=== PATIENT | male | born 1935 ===

== ENCOUNTER 2016-07-27 15:43 | Emergency (ER) | payer MEDICARE ==
[2016-07-27 15:43] VITALS: BMI 25.0
[2016-07-27 15:48] VITALS: RESP 20
--- NOTE | 2016-07-27 16:24 | ED PDOC ---
Addendum entered and electronically signed by Patrick Khalil PA 07/27/16 19:36: Addendum Addendum: 07/27/16 19:36 CT HEAD : NO ACUTE BLEED CT C SPINE: NO ACUTE SPINAL INJURY Original Note: HPI: General Adult Time Seen by Provider: 07/27/16 16:00 Chief Complaint (Nursing): Trauma Chief Complaint (Provider): head injury History Per: Patient (81 y/o male h/o ESRD here for evaluation of head injury that occurred en route to dialysis. Patient states he was reversing in wheelchair when chair went over crack in floor and patient fell out of chair striking back of head. NO LOC.) Past Medical History Reviewed: Historical Data, Nursing Documentation, Vital Signs Vital Signs: Last Vital Signs Temp 97.9 F 07/27/16 15:44 Pulse 63 07/27/16 15:44 Resp 20 07/27/16 15:44 BP 175/89 H 07/27/16 15:44 Pulse Ox 100 07/27/16 16:24 - Medical History PMH: Anemia, Atrial Fibrillation, Diabetes, HTN, Hypercholesterolemia, End Stage Renal Disease (mwf), Chronic Kidney Disease Denies: HIV - Family History Family History: States: CAD - Immunization History Hx Tetanus Toxoid Vaccination: No Hx Influenza Vaccination: Yes Hx Pneumococcal Vaccination: Yes - Home Medications Home Medications: Ambulatory Orders Medication Instructions Recorded Amiodarone [Cordarone] 200 mg PO DAILY #0 tab 03/13/16 Gabapentin [Neurontin] 300 mg PO BID #0 cap 03/13/16 diltiaZEM CD [Cardizem CD] 120 mg PO DAILY #0 cap 03/13/16 Vitamin B Complex/Vit C/Folic 1 tab PO DAILY 03/17/16 [Nephro-Sia] Metoprolol Tartrate [Lopressor] 25 mg PO Q12 #0 tab 03/20/16 Calcitriol [Rocaltrol] 0.25 mcg PO MWF #0 sgl 04/10/16 Pioglitazone [Actos] 30 mg PO DAILY #0 tab 04/10/16 SITagliptin [Januvia] 25 mg PO DAILY #0 tab 04/10/16 Atorvastatin [Lipitor] 10 mg PO HS 07/27/16 Calcium Acetate [Phoslo] 667 mg PO TID 07/27/16 Famotidine [Pepcid] 20 mg PO DAILY 07/27/16 - Allergies Allergies/Adverse Reactions: Allergies Allergy/AdvReac Type Severity Reaction Status Date / Time No Known Allergies Allergy Verified 03/20/16 14:04 Review of Systems ROS Statement: Except As Marked, All Systems Reviewed And Found Negative Physical Exam - Reviewed Nursing Documentation Reviewed: Yes Vital Signs Reviewed: Yes - Physical Exam Appears: Positive for: Well, Non-toxic, No Acute Distress Head Exam: Positive for: ATRAUMATIC (Nontender scalp/no injury noted.), NORMAL INSPECTION, NORMOCEPHALIC Skin: Positive for: Normal Color, Warm, DRY Eye Exam: Positive for: EOMI, Normal appearance, PERRL ENT: Positive for: Normal ENT Inspection Neck: Positive for: Normal, Painless ROM Cardiovascular/Chest: Positive for: Regular Rate, Rhythm Respiratory: Positive for: CNT, Normal Breath Sounds Gastrointestinal/Abdominal: Positive for: Normal Exam, Bowel Sounds, Soft Back: Positive for: Normal Inspection Extremity: Positive for: Normal ROM Neurologic/Psych: Positive for: Alert, Oriented - Laboratory Results Result Diagrams: 07/27/16 17:20 07/27/16 17:20 - ECG O2 Sat by Pulse Oximetry: 100 - Progress ED Course And Treament: d/w [facility] [phone]. Next available dialysis time is 3 pm. EKG: NSr 65bpm; no ectopy no acute changes d/w dr. Quispe. Patient comfortable with discharge. Will f/u tomorrow at 3pm. Disposition - Clinical Impression Clinical Impression: Head injury - Patient ED Disposition Is Patient to be Admitted: No - Disposition Disposition: Routine/Home Disposition Time: 19:31 Condition: FAIR Additional Instructions: F/U WITH DIALYSIS TOMORROW AT 3PM. Instructions: Head Injury (ED)
--- NOTE | 2016-07-27 16:44 | CT ---
PROCEDURE: CT HEAD WITHOUT CONTRAST. HISTORY: head injury COMPARISON: None available. TECHNIQUE: Axial computed tomography images were obtained through the head/brain without intravenous contrast. Radiation dose: Total exam DLP = mGy-cm. FINDINGS: HEMORRHAGE: No intracranial hemorrhage. BRAIN: No mass effect or edema. Mild atrophy and chronic periventricular white matter ischemic disease. VENTRICLES: Unremarkable. No hydrocephalus. CALVARIUM: Unremarkable. PARANASAL SINUSES: Unremarkable as visualized. No significant inflammatory changes. MASTOID AIR CELLS: Unremarkable as visualized. No inflammatory changes. OTHER FINDINGS: None. IMPRESSION: Mild atrophy and chronic periventricular white matter ischemic disease. No acute hemorrhage.
--- NOTE | 2016-07-27 17:46 | CT ---
PROCEDURE: CT Cervical Spine without contrast HISTORY: <head injury> COMPARISON: 03/02/2016 TECHNIQUE: Axial computed tomography images were obtained of the cervical spine without the use of intravenous contrast. Coronal and sagittal reformatted images were created and reviewed. Radiation dose: Total exam DLP = mGy-cm. FINDINGS: VERTEBRAE: Status post ACD from C3 through C5 with ventral fixation device and intervertebral spacers in place. DISCS/SPINAL CANAL/NEURAL FORAMINA: No significant central canal or neural foraminal stenosis. Multilevel disc space narrowing and posterior spur formation. Re-demonstration of spinal stenosis at C4-5 and C5-6. PARASPINAL SOFT TISSUES: Unremarkable. OTHER FINDINGS: None. IMPRESSION: No acute fracture. Spinal stenosis at C4-5 and C5-6.
[2016-07-27 17:49] LABS: BASO % 0.9 % (0.0-2.0); EOS # 0.1 K/uL (0.0-0.7); EOS % 1.7 % (0.0-4.0); HEMATOCRIT 30.2 % (35.0-51.0); LYMPH # 0.6 K/uL (1.0-4.3); LYMPH % 13.7 % (20.0-40.0); MEAN CELL VOLUME 93.1 fl (80.0-94.0); MEAN CORPUSCULAR HEMOGLOBIN 30.6 pg (27.0-31.0); MEAN CORPUSCULAR HGB CONC 32.8 g/dL (33.0-37.0); MEAN PLATELET VOLUME 8.9 fl (7.2-11.7); MONO # 0.5 K/uL (0.0-0.8); MONO % 12.9 % (0.0-10.0); NEUT # 2.9 K/uL (1.8-7.0); NEUT % 70.8 % (50.0-75.0); NRBC % 0.1 % (0.0-0.0); RED CELL DISTRIBUTION WIDTH 14.1 % (11.5-14.5); WHITE BLOOD COUNT 4.1 K/uL (4.8-10.8)
[2016-07-27 18:03] LABS: ALB/GLOB RATIO 1.4 (1.0-2.1); BILIRUBIN,TOTAL 0.5 mg/dl (0.2-1.3); CALCIUM 8.5 mg/dL (8.4-10.2); MAGNESIUM 2.4 MG/DL (1.6-2.3); PHOSPHOROUS 3.7 mg/dl (2.5-4.5); POTASSIUM 4.6 MMOL/L (3.6-5.0); TOTAL PROTEIN 6.8 G/DL (6.3-8.2)
[2016-07-27 21:32] VITALS: BP 128/76; PULSE 78; TEMP 97.6; O2SAT 98
--- NOTE | 2016-07-28 13:58 | CARD ---
APPROVED REPORT EKG Measurement Heart [id number] OR [id number] <Conclusion> Sinus rhythm with 1st degree AV block Prolonged QT Abnormal ECG
== END 2016-07-27 21:32 | disposition home or self-care (01) ==
LOC: H.ER 15:43
DX: S09.90XA Unspecified injury of head, initial encounter (principal); N18.6 End stage renal disease; E11.8 Type 2 diabetes mellitus with unspecified complications; N18.9 Chronic kidney disease, unspecified; Z99.2 Dependence on renal dialysis; W05.0XXA Fall from non-moving wheelchair, initial encounter; Y93.9 Activity, unspecified

== ENCOUNTER 2016-11-10 09:30 | Inpatient (IN) | payer MEDICARE ==
[2016-11-10 09:36] VITALS: BP 156/76; PULSE 85; RESP 16; TEMP 97.7; O2SAT 100; BMI 23.9
--- NOTE | 2016-11-10 09:50 | ED PDOC ---
HPI: Back Time Seen by Provider: 11/10/16 09:41 Chief Complaint (Nursing): Back Pain Chief Complaint (Provider): Back pain History Per: Patient History/Exam Limitations: no limitations Onset/Duration Of Symptoms: Days (Months) Current Symptoms Are (Timing): Still Present Quality Of Discomfort: Sharp Additional Complaint(s): Low back pain on moving around. Constant. No numbness, tingles, weakness, incontinence, constipation. No abd pain, chest pain. No new injury. Past Medical History Reviewed: Nursing Documentation, Vital Signs Vital Signs: Last Vital Signs Temp 97.7 F 11/10/16 09:35 Pulse 85 11/10/16 09:35 Resp 16 11/10/16 09:35 BP 156/76 H 11/10/16 09:35 Pulse Ox 100 11/10/16 09:35 - Medical History PMH: Anemia, Atrial Fibrillation, Back Problems, Diabetes, HTN, Hypercholesterolemia, End Stage Renal Disease (mwf), Chronic Kidney Disease Denies: HIV - Surgical History Other surgeries: back surgery Nov - Family History Family History: States: CAD - Living Arrangements Living Arrangements: With Family - Social History Current smoker - smoking cessation education provided: No Alcohol: None Drugs: Denies - Immunization History Hx Tetanus Toxoid Vaccination: No Hx Influenza Vaccination: Yes Hx Pneumococcal Vaccination: Yes - Home Medications Home Medications: Ambulatory Orders Medication Instructions Recorded Amiodarone [Cordarone] 200 mg PO DAILY #0 tab 03/13/16 Gabapentin [Neurontin] 300 mg PO BID #0 cap 03/13/16 diltiaZEM CD [Cardizem CD] 120 mg PO DAILY #0 cap 03/13/16 Vitamin B Complex/Vit C/Folic 1 tab PO DAILY 03/17/16 [Nephro-Sia] Metoprolol Tartrate [Lopressor] 25 mg PO Q12 #0 tab 03/20/16 Calcitriol [Rocaltrol] 0.25 mcg PO MWF #0 sgl 04/10/16 Pioglitazone [Actos] 30 mg PO DAILY #0 tab 04/10/16 SITagliptin [Januvia] 25 mg PO DAILY #0 tab 04/10/16 Atorvastatin [Lipitor] 10 mg PO HS 07/27/16 Calcium Acetate [Phoslo] 667 mg PO TID 07/27/16 Famotidine [Pepcid] 20 mg PO DAILY 07/27/16 - Allergies Allergies/Adverse Reactions: Allergies Allergy/AdvReac Type Severity Reaction Status Date / Time No Known Allergies Allergy Verified 03/20/16 14:04 Review of Systems ROS Statement: Except As Marked, All Systems Reviewed And Found Negative Musculoskeletal: Positive for: Back Pain Physical Exam - Reviewed Nursing Documentation Reviewed: Yes Vital Signs Reviewed: Yes - Physical Exam Appears: Positive for: Non-toxic, No Acute Distress Head Exam: Positive for: ATRAUMATIC, NORMAL INSPECTION, NORMOCEPHALIC Skin: Positive for: Normal Color, Warm, DRY Eye Exam: Positive for: EOMI, Normal appearance, PERRL ENT: Positive for: Normal ENT Inspection Neck: Positive for: Normal, Painless ROM Cardiovascular/Chest: Positive for: Regular Rate, Rhythm Respiratory: Positive for: CNT, Normal Breath Sounds Gastrointestinal/Abdominal: Positive for: Normal Exam, Bowel Sounds, Soft. Negative for: Tenderness Back: Positive for: Other (mild across lower) Extremity: Positive for: Normal ROM, Other (straight leg neg). Negative for: Tenderness, Pedal Edema Neurologic/Psych: Positive for: Alert, Oriented - ECG O2 Sat by Pulse Oximetry: 100 Pulse Ox Interpretation: Normal - Progress ED Course And Treament: 1000: Dr. Webber at bedside. Will admit medsur for further eval. Stable. Disposition - Clinical Impression Clinical Impression: Back pain - Patient ED Disposition Is Patient to be Admitted: Yes Counseled Patient/Family Regarding: Studies Performed, Diagnosis - Disposition Disposition Time: 10:04 Condition: FAIR - POA Present On Arrival: None
[2016-11-10] MEDS ORDERED: Morphine 4 MG/ML VIAL IV ONE (10:01)
[2016-11-10] MEDS ORDERED: Sodium Chloride 0.9% 500 ML IV STA (10:01)
[2016-11-10 10:29] LABS: BASO % 1.1 % (0.0-2.0); EOS # 0.2 K/uL (0.0-0.7); HEMOGLOBIN 10.8 g/dL (12.0-18.0); LYMPH # 0.6 K/uL (1.0-4.3); LYMPH % 14.2 % (20.0-40.0); MEAN CORPUSCULAR HEMOGLOBIN 29.8 pg (27.0-31.0); MEAN CORPUSCULAR HGB CONC 32.8 g/dL (33.0-37.0); MEAN PLATELET VOLUME 7.2 fl (7.2-11.7); MONO # 0.6 K/uL (0.0-0.8); MONO % 15.5 % (0.0-10.0); NEUT # 2.7 K/uL (1.8-7.0); NEUT % 65.2 % (50.0-75.0); NRBC % 0.2 % (0.0-0.0); RBC 3.63 Mil/uL (4.40-5.90); RED CELL DISTRIBUTION WIDTH 15.5 % (11.5-14.5); WHITE BLOOD COUNT 4.1 K/uL (4.8-10.8)
[2016-11-10 10:44] LABS: ALB/GLOB RATIO 1.4 (1.0-2.1); ALBUMIN 4.6 g/dL (3.5-5.0); CALCIUM 9.3 mg/dL (8.4-10.2)
[2016-11-10 10:48] LABS: INR 1.1 (0.9-1.2); PARTIAL THROMBOPLASTIN TIME 32.9 Seconds (25.6-37.1); PROTHROMBIN TIME 12.8 Seconds (9.8-13.1)
--- NOTE | 2016-11-10 13:30 | RAD ---
HISTORY: eval for pain COMPARISON: 03/22/2016 TECHNIQUE: Chest PA and lateral FINDINGS: LUNGS: No active pulmonary disease. PLEURA: No significant pleural effusion identified. No pneumothorax apparent. CARDIOVASCULAR: Normal heart size. Left subclavian/ axillary vascular stent. OSSEOUS STRUCTURES: No significant abnormalities. VISUALIZED UPPER ABDOMEN: Normal. OTHER FINDINGS: None. IMPRESSION: No active disease.
--- NOTE | 2016-11-10 15:07 | CARD ---
APPROVED REPORT EKG Measurement Heart [id number] <Conclusion> Normal sinus rhythm Septal infarct, age undetermined Abnormal ECG
== END 2016-11-10 10:07 | disposition home or self-care (01) | DRG 551 ==
LOC: H.ER 09:30 → H.ERHOLD 09:44
PROVIDERS: ADMIT Family Medicine; ATTEND Family Medicine
DX: M54.5 Low back pain (principal); N18.6 End stage renal disease; I12.0 Hypertensive chronic kidney disease with stage 5 chronic kidney disease or end stage renal disease; E11.22 Type 2 diabetes mellitus with diabetic chronic kidney disease; I48.91 Unspecified atrial fibrillation; D64.9 Anemia, unspecified; E78.00 Pure hypercholesterolemia, unspecified; Z99.2 Dependence on renal dialysis

== ENCOUNTER 2016-11-16 08:31 | Inpatient (IN) | payer MEDICARE ==
[2016-11-16 08:32] VITALS: BMI 23.9
--- NOTE | 2016-11-16 09:22 | ED PDOC ---
HPI: Back Time Seen by Provider: 11/16/16 09:04 Chief Complaint (Nursing): Back Pain Chief Complaint (Provider): low back pain History Per: Patient, Family, Other (prior reports) Onset/Duration Of Symptoms: Gradual Quality Of Discomfort: Sharp Severity: Severe Previous Symptoms: Back Pain, Prior Surgery Associated Symptoms: None Exacerbating Factor(s): Turning, Movement, Sitting Additional Complaint(s): 81yo male c/o worsening severe low back pain, affecting ability to walk. Pain sharp, radiating down both posterior legs. Denies incontinence or urinary retention. Past Medical History Reviewed: Historical Data, Nursing Documentation, Vital Signs Vital Signs: Last Vital Signs Temp 98.2 F 11/16/16 08:41 Pulse 79 11/16/16 08:41 Resp 18 11/16/16 08:41 BP 152/71 H 11/16/16 08:41 Pulse Ox 18 L 11/16/16 08:41 - Medical History PMH: Anemia, Atrial Fibrillation, Back Problems, Diabetes, HTN, Hypercholesterolemia, End Stage Renal Disease (mwf), Chronic Kidney Disease Denies: HIV - Surgical History Other surgeries: neck surgery - Family History Family History: States: CAD - Living Arrangements Living Arrangements: With Family - Social History Current smoker - smoking cessation education provided: No - Immunization History Hx Tetanus Toxoid Vaccination: No Hx Influenza Vaccination: Yes Hx Pneumococcal Vaccination: Yes - Home Medications Home Medications: Ambulatory Orders Medication Instructions Recorded diltiaZEM CD [Cardizem CD] 120 mg PO DAILY #0 cap 03/13/16 Vitamin B Complex/Vit C/Folic 1 tab PO DAILY 03/17/16 [Nephro-Sia] Metoprolol Tartrate [Lopressor] 25 mg PO Q12 #0 tab 03/20/16 Calcitriol [Rocaltrol] 0.25 mcg PO MWF #0 sgl 04/10/16 Calcium Acetate [Phoslo] 667 mg PO TID 07/27/16 Famotidine [Pepcid] 20 mg PO BID 07/27/16 Clopidogrel [Plavix] 75 mg PO DAILY 11/10/16 Dexlansoprazole [Dexilant] 30 mg PO DAILY 11/10/16 Diclofenac Sodium [Pennsaid] 1 appl TOP TID PRN 11/10/16 Lidocaine 5% [Lidoderm] 1 patch TD DAILY PRN 11/10/16 Linaclotide [Linzess] 145 mcg PO DAILY PRN 11/10/16 Linagliptin [Tradjenta] 5 mg PO DAILY 11/10/16 Rosuvastatin Calcium [Crestor] 5 mg PO Q48H 11/10/16 Tamsulosin [Flomax] 0.4 mg PO HS 11/10/16 - Allergies Allergies/Adverse Reactions: Allergies Allergy/AdvReac Type Severity Reaction Status Date / Time No Known Allergies Allergy Verified 11/16/16 08:46 Review of Systems ROS Statement: Except As Marked, All Systems Reviewed And Found Negative Constitutional: Negative for: Fever, Chills Cardiovascular: Negative for: Chest Pain, Palpitations Respiratory: Negative for: Cough, Shortness of Breath Musculoskeletal: Positive for: Back Pain, Leg Pain. Negative for: Neck Pain, Shoulder Pain, Hand Pain Skin: Negative for: Rash Neurological: Positive for: Other (parasthesias). Negative for: Weakness, Numbness Physical Exam - Reviewed Nursing Documentation Reviewed: Yes Vital Signs Reviewed: Yes - Physical Exam Appears: Positive for: Well, Non-toxic, No Acute Distress Head Exam: Positive for: ATRAUMATIC, NORMAL INSPECTION, NORMOCEPHALIC Skin: Positive for: Normal Color, Warm, DRY Eye Exam: Positive for: EOMI, Normal appearance, PERRL ENT: Positive for: Normal ENT Inspection Neck: Positive for: Normal, Painless ROM Cardiovascular/Chest: Positive for: Regular Rate, Rhythm Respiratory: Positive for: CNT, Normal Breath Sounds Gastrointestinal/Abdominal: Positive for: Bowel Sounds, Soft. Negative for: Tenderness Back: Positive for: Vertebral Tenderness, Decreased ROM, Muscle Spasm Extremity: Positive for: Normal ROM Neurologic/Psych: Positive for: Alert, Oriented. Negative for: Motor/Sensory Deficits - Laboratory Results Result Diagrams: 11/16/16 09:25 11/16/16 09:25 - ECG ECG: Positive for: Interpreted By Me ECG Rhythm: Positive for: Sinus Rhythm, Nonspecific Changes Interpretation Of ECG: prior septal infarct Rate: 69 O2 Sat by Pulse Oximetry: 98 Pulse Ox Interpretation: Normal - Radiology X-Ray: Interpreted by Me X-Ray Interpretation: No Acute Disease Medical Decision Making Medical Decision Making: labs reviewed, c/w chronic kidney disease on HD. Potassium normal. Due for HD today. States he saw Dr Mcnamara cardiology on wednesday. d/w Dr Webber- admit med surg for neurosurgery eval of spine given failure outpatient. Disposition - Clinical Impression Clinical Impression: Intractable back pain - Patient ED Disposition Is Patient to be Admitted: Yes Counseled Patient/Family Regarding: Studies Performed, Diagnosis - Disposition Disposition Time: 09:10 Condition: STABLE - Pt Status Changed To: Hospital Disposition Of: Inpatient - Admit Certification Admit to Inpatient:: After my assessment, the patient will require hospitalization for at least two midnights. This is because of the severity of symptoms shown, intensity of services needed, and/or the medical risk in this patient being treated as an outpatient. - POA Present On Arrival: None
[2016-11-16 09:29] LABS: BASO % 0.3 % (0.0-2.0); EOS # 0.2 K/uL (0.0-0.7); EOS % 4.8 % (0.0-4.0); HEMOGLOBIN 10.2 g/dL (12.0-18.0); LYMPH # 0.8 K/uL (1.0-4.3); LYMPH % 19.3 % (20.0-40.0); MEAN CELL VOLUME 91.3 fl (80.0-94.0); MEAN CORPUSCULAR HEMOGLOBIN 30.4 pg (27.0-31.0); MEAN CORPUSCULAR HGB CONC 33.3 g/dL (33.0-37.0); MONO # 0.6 K/uL (0.0-0.8); MONO % 16.6 % (0.0-10.0); NEUT # 2.3 K/uL (1.8-7.0); NRBC % 0.3 % (0.0-0.0); RBC 3.35 Mil/uL (4.40-5.90); RED CELL DISTRIBUTION WIDTH 15.5 % (11.5-14.5); WHITE BLOOD COUNT 3.9 K/uL (4.8-10.8)
[2016-11-16 09:44] LABS: ALB/GLOB RATIO 1.4 (1.0-2.1); ALBUMIN 4.3 g/dL (3.5-5.0); CALCIUM 9.2 mg/dL (8.4-10.2)
[2016-11-16 10:00] LABS: INR 1.1 (0.9-1.2); PARTIAL THROMBOPLASTIN TIME 30.9 Seconds (25.6-37.1); PROTHROMBIN TIME 12.4 Seconds (9.8-13.1)
--- NOTE | 2016-11-16 10:32 | RAD ---
HISTORY: back pain COMPARISON: Comparison chest dated 11/10/2016 TECHNIQUE: Chest PA and lateral FINDINGS: LUNGS: Suspect minor left basilar atelectasis or scarring PLEURA: No significant pleural effusion identified. No pneumothorax apparent. CARDIOVASCULAR: Heart size is upper limits of normal. OSSEOUS STRUCTURES: Minor multilevel degenerative spondylosis of the thoracic spine. Inferior aspect of a ACDF plate seen overlying the lower cervical spine VISUALIZED UPPER ABDOMEN: Normal. OTHER FINDINGS: None. IMPRESSION: Suspect minor left basilar atelectasis or scarring
--- NOTE | 2016-11-16 10:42 | CP.PCM.HP ---
History of Present Illness - History of Present Illness History of Present Illness: This is a 81 y/o male admitted for intractable lower back pain. Noted to have multilevel lumbar disc disease, Conservative measures were started including pain medications and physical therapy. Symptoms worsened and affected patient gait and balance. pain was so intractable hence sought consult at ER. Has hx of DM 2 HTn CKD 5 on HD, recent cervical laminectomy Present on Admission - Present on Admission Any Indicators Present on Admission: No History of DVT/PE: No History of Uncontrolled Diabetes: Yes Urinary Catheter: No Decubitus Ulcer Present: No Review of Systems - EENT Eyes: Blurred Vision Past Patient History - Infectious Disease Hx of Infectious Diseases: None - Past Medical History & Family History Past Medical History?: Yes - Past Social History Smoking Status: Former Smoker - CARDIAC Hx Atrial Fibrillation: Yes Hx Hypercholesterolemia: Yes Hx Hypertension: Yes - PULMONARY Hx Respiratory Disorders: No - NEUROLOGICAL Hx Neurological Disorder: No Other/Comment: neuropathy - HEENT Hx HEENT Problems: No - RENAL Hx Chronic Kidney Disease: Yes - ENDOCRINE/METABOLIC Hx Endocrine Disorders: Yes - HEMATOLOGICAL/ONCOLOGICAL Hx Anemia: Yes Hx Human Immunodeficiency Virus (HIV): No - INTEGUMENTARY Hx Dermatological Problems: No - MUSCULOSKELETAL/RHEUMATOLOGICAL Hx Musculoskeletal Disorders: Yes - GASTROINTESTINAL Hx Gastrointestinal Disorders: Yes - GENITOURINARY/GYNECOLOGICAL Hx Genitourinary Disorders: No - PSYCHIATRIC Hx Psychophysiologic Disorder: No Hx Substance Use: No - SURGICAL HISTORY Hx Surgeries: Yes Hx Vascular Access Device: Yes - ANESTHESIA Hx Anesthesia: Yes Hx Anesthesia Reactions: No Hx Malignant Hyperthermia: No Meds Allergies/Adverse Reactions: Allergies Allergy/AdvReac Type Severity Reaction Status Date / Time No Known Allergies Allergy Verified 11/16/16 08:46 Physical Exam - Head Exam Head Exam: NORMAL INSPECTION - Eye Exam Eye Exam: Normal appearance - ENT Exam ENT Exam: Mucous Membranes Moist - Respiratory Exam Respiratory Exam: Clear to Auscultation Bilateral - Cardiovascular Exam Cardiovascular Exam: REGULAR RHYTHM - GI/Abdominal Exam GI & Abdominal Exam: Normal Bowel Sounds - Exam Exam: NORMAL INSPECTION - Neurological Exam Neurological exam: CN II-XII Intact, Oriented x3 - Psychiatric Exam Psychiatric exam: Normal Mood Results - Vital Signs Recent Vital Signs: Last Vital Signs Temp 98.2 F 11/16/16 08:41 Pulse 69 11/16/16 10:16 Resp 18 11/16/16 08:41 BP 152/71 H 11/16/16 08:41 Pulse Ox 98 11/16/16 10:16 - Labs Result Diagrams: 11/16/16 09:25 11/16/16 09:25 Labs: Laboratory Results - last 24 hr 11/16/16 11/16/16 11/16/16 09:25 09:25 09:25 WBC 3.9 L RBC 3.35 L Hgb 10.2 L Hct 30.6 L MCV 91.3 MCH 30.4 MCHC 33.3 RDW 15.5 H Plt Count 177 MPV 7.0 L Neut % (Auto) 59.0 Lymph % (Auto) 19.3 L [place] % (Auto) 16.6 H Eos % (Auto) 4.8 H Baso % (Auto) 0.3 Neut # 2.3 Lymph # 0.8 L [place] # 0.6 Eos # 0.2 Baso # 0.0 PT 12.4 INR 1.1 APTT 30.9 Sodium 139 Potassium 4.7 Chloride 101 Carbon Dioxide 22 Anion Gap 21 H BUN 58 H Creatinine 8.7 H* D Est GFR ( Amer) 7 Est GFR (Non-Af Amer) 6 Random Glucose 114 H Calcium 9.2 Total Bilirubin 0.5 AST 35 ALT 34 Alkaline Phosphatase 54 Total Protein 7.3 Albumin 4.3 Globulin 3.0 Albumin/Globulin Ratio 1.4 Assessment & Plan (1) Intractable back pain Status: Acute (2) Lumbar back pain with radiculopathy affecting left lower extremity Status: Acute (3) CKD (chronic kidney disease) stage 5, GFR less than 15 ml/min Status: Acute (4) Diabetes mellitus type 2 in nonobese Status: Acute (5) Hyperlipidemia Status: Acute (6) Hypertension Status: Acute - Assessment and Plan (Free Text) Plan: cont meds Pain meds NPO post midnight labs reviewed follow up with Dr Mcnamara medically stable for surgery
[2016-11-16 10:43] LABS: SQUAMOUS EPITHIAL < 1 /hpf (0-5); URINE BILIRUBIN NEGATIVE (NEGATIVE); URINE BLOOD NEGATIVE (NEGATIVE); URINE CLARITY CLEAR (Clear); URINE COLOR YELLOW (YELLOW); URINE GLUCOSE (UA) 50 mg/dL (Normal); URINE LEUKOCYTE ESTERASE NEG Leu/uL (Negative); URINE NITRATE NEGATIVE (NEGATIVE); URINE PROTEIN 100 mg/dL (NEGATIVE); URINE UROBILINOGEN 0.2-1.0 mg/dL (0.2-1.0)
--- NOTE | 2016-11-16 11:10 | CP.PCM.CON ---
History of Present Illness - History of Present Illness History of Present Illness: This patient who is 81 years of age known with end stage renal disease on maintenance hemodialysis Wednesday. Admitted is low back pain radiated to the lower extremity. Patient is scheduled to have back surgery tomorrow at [facility] anyway. Patient was admitted previously. And he was complaining of neck pain anemia requiring neck surgery because of was affecting his upper extremity and ever since is doing much better lifting his arm Patient known was multiple medical problem related to end stage renal disease hypertension and history of atrial fibrillation and see the past medical and surgical history patient has left upper arm AV access for dialysis Review of Systems - Constitutional Constitutional: absent: Anorexia, Chills - EENT Eyes: As Per HPI Nose/Mouth/Throat: absent: Nasal Congestion, Dysphagia - Cardiovascular Cardiovascular: absent: Chest Pain, Dyspnea - Respiratory Respiratory: absent: Cough, Dyspnea - Gastrointestinal Gastrointestinal: absent: Abdominal Pain, Coffee Ground Emesis - Genitourinary Genitourinary: As Per HPI. absent: Flank Pain, Hematuria - Musculoskeletal Musculoskeletal: Abnormal Gait - Neurological Neurological: As Per HPI, Abnormal Gait, Weakness Past Patient History - Infectious Disease Hx of Infectious Diseases: None - Past Medical History & Family History Past Medical History?: Yes - Past Social History Smoking Status: Former Smoker - CARDIAC Hx Atrial Fibrillation: Yes Hx Hypercholesterolemia: Yes Hx Hypertension: Yes - PULMONARY Hx Respiratory Disorders: No - NEUROLOGICAL Hx Neurological Disorder: No Other/Comment: neuropathy - HEENT Hx HEENT Problems: No - RENAL Hx Chronic Kidney Disease: Yes - ENDOCRINE/METABOLIC Hx Endocrine Disorders: Yes - HEMATOLOGICAL/ONCOLOGICAL Hx Anemia: Yes Hx Human Immunodeficiency Virus (HIV): No - INTEGUMENTARY Hx Dermatological Problems: No - MUSCULOSKELETAL/RHEUMATOLOGICAL Hx Musculoskeletal Disorders: Yes - GASTROINTESTINAL Hx Gastrointestinal Disorders: Yes - GENITOURINARY/GYNECOLOGICAL Hx Genitourinary Disorders: No - PSYCHIATRIC Hx Psychophysiologic Disorder: No Hx Substance Use: No - SURGICAL HISTORY Hx Surgeries: Yes Hx Vascular Access Device: Yes - ANESTHESIA Hx Anesthesia: Yes Hx Anesthesia Reactions: No Hx Malignant Hyperthermia: No Meds Allergies/Adverse Reactions: Allergies Allergy/AdvReac Type Severity Reaction Status Date / Time No Known Allergies Allergy Verified 11/16/16 08:46 Physical Exam - Constitutional Appears: No Acute Distress - ENT Exam ENT Exam: Mucous Membranes Moist - Respiratory Exam Respiratory Exam: NORMAL BREATHING PATTERN. absent: Chest Wall Tenderness - Cardiovascular Exam Cardiovascular Exam: REGULAR RHYTHM. absent: JVD, Rubs - GI/Abdominal Exam GI & Abdominal Exam: Normal Bowel Sounds - Extremities Exam Extremities exam: Negative for: calf tenderness - Back Exam Back exam: absent: CVA tenderness (L), CVA tenderness (R) - Neurological Exam Neurological exam: Alert Results - Vital Signs Recent Vital Signs: Last Vital Signs Temp 98.2 F 11/16/16 08:41 Pulse 69 11/16/16 10:16 Resp 18 11/16/16 08:41 BP 152/71 H 11/16/16 08:41 Pulse Ox 98 11/16/16 10:16 - Labs Result Diagrams: 11/16/16 09:25 11/16/16 09:25 Labs: Laboratory Results - last 24 hr 11/16/16 11/16/16 11/16/16 09:25 09:25 09:25 WBC 3.9 L RBC 3.35 L Hgb 10.2 L Hct 30.6 L MCV 91.3 MCH 30.4 MCHC 33.3 RDW 15.5 H Plt Count 177 MPV 7.0 L Neut % (Auto) 59.0 Lymph % (Auto) 19.3 L [place] % (Auto) 16.6 H Eos % (Auto) 4.8 H Baso % (Auto) 0.3 Neut # 2.3 Lymph # 0.8 L [place] # 0.6 Eos # 0.2 Baso # 0.0 PT 12.4 INR 1.1 APTT 30.9 Sodium 139 Potassium 4.7 Chloride 101 Carbon Dioxide 22 Anion Gap 21 H BUN 58 H Creatinine 8.7 H* D Est GFR ( Amer) 7 Est GFR (Non-Af Amer) 6 Random Glucose 114 H Calcium 9.2 Total Bilirubin 0.5 AST 35 ALT 34 Alkaline Phosphatase 54 Total Protein 7.3 Albumin 4.3 Globulin 3.0 Albumin/Globulin Ratio 1.4 Urine Color Urine Clarity Urine pH Ur Specific [place] Urine Protein Urine Glucose (UA) Urine Ketones Urine Blood Urine Nitrate Urine Bilirubin Urine Urobilinogen Ur Leukocyte Esterase Urine RBC (Auto) Urine Microscopic WBC Ur Squamous Epith Cells 11/16/16 10:23 WBC RBC Hgb Hct MCV MCH MCHC RDW Plt Count MPV Neut % (Auto) Lymph % (Auto) [place] % (Auto) Eos % (Auto) Baso % (Auto) Neut # Lymph # [place] # Eos # Baso # PT INR APTT Sodium Potassium Chloride Carbon Dioxide Anion Gap BUN Creatinine Est GFR ( Amer) Est GFR (Non-Af Amer) Random Glucose Calcium Total Bilirubin AST ALT Alkaline Phosphatase Total Protein Albumin Globulin Albumin/Globulin Ratio Urine Color Yellow Urine Clarity Clear Urine pH 7.0 Ur Specific [place] 1.013 Urine Protein 100 Urine Glucose (UA) 50 Urine Ketones Negative Urine Blood Negative Urine Nitrate Negative Urine Bilirubin Negative Urine Urobilinogen 0.2-1.0 Ur Leukocyte Esterase Neg Urine RBC (Auto) 3 Urine Microscopic WBC 1 Ur Squamous Epith Cells < 1 Assessment & Plan (1) Chronic kidney disease with end stage renal failure on dialysis Assessment and Plan: Patient with end stage renal disease on dialysis Wednesday admitted with low back pain he was supposed to have back surgery tomorrow anyway scheduled for dialysis today we will make arrangement for it consent was taken. The at the bedside the history was taken from the and the patient himself. Renal diet as instructed Medications reviewed Status: Acute (2) Intractable back pain Status: Acute
[2016-11-16] MEDS ORDERED: Epoetin Alfa 20000 UNIT/ML (RENAL DOSE) IV SCH (11:16)
[2016-11-16] MEDS ORDERED: Lidocaine 5% Patch TD PRN (11:19)
[2016-11-16] MEDS ORDERED: DICLOFENAC SODIUM APPL TOP PRN (11:19)
[2016-11-16] MEDS: diltiaZEM 120 mg/24 Hours CD Cap PO SCH (13:07)
[2016-11-16] MEDS: Multivitamin Vitamin B Complex (Nephro-Vite) Tab PO SCH (13:23)
--- NOTE | 2016-11-16 18:57 | CP.PCM.CON ---
History of Present Illness - History of Present Illness History of Present Illness: I was asked to see patient by Dr. Webber. Patient is a 81 year old male with PMH cardiomyopathy, afib ( maintained on Plavix) lumbar disc disease who presents for disc surgery. The patient tolerated previous cervial spine surgery. He has failed conservative therapy. he denies chest pain or dyspnea. He has been off Plavix for a week. The patietn is scheduled for laminectomy. Review of Systems - Constitutional Constitutional: absent: As Per HPI, Anorexia, Chills, Daytime Sleepiness, Excessive Sweating, Fatigue, Fever, Frequent Falls, Headache, Increased Appetite , Lethargy, Malaise, Night Sweats, Snoring, Sleep Apnea, Weight Gain, Weight Loss, Weakness, Other - EENT Eyes: absent: As Per HPI, Blind Spots, Blurred Vision, Change in Vision, Decreased Night Vision, Diplopia, Discharge, Dry Eye, Exophthalmos, Floaters, Irritation, Itchy Eyes, Loss of Peripheral Vision, Pain, Photophobia, Requires Corrective Lenses, Sees Flashes, Spots in Vision, Tunnel Vision, Other Visual Disturbances, Loss of Vision, Other Ears: absent: As Per HPI, Decreased Hearing, Ear Discharge, Ear Pain, Tinnitus, Abnormal Hearing, Disequilibrium, Dizziness, Other Nose/Mouth/Throat: absent: As Per HPI, Epistaxis, Nasal Congestion, Nasal Discharge, Nasal Obstruction, Nasal Trauma, Nose Pain, Post Nasal Drip, Sinus Pain, Sinus Pressure, Bleeding Gums, Change in Voice, Dental Pain, Dry Mouth, Dysphagia, Halitosis, Hoarsness, Lip Swelling, Mouth Lesions, Mouth Pain, Odynophagia, Sore Throat, Throat Swelling, Tongue Swelling, Facial Pain, Neck Pain, Neck Mass, Other - Cardiovascular Cardiovascular: absent: As Per HPI, Acrocyanosis, Chest Pain, Chest Pain at Rest , Chest Pain with Activity, Claudication, Diaphoresis, Dyspnea, Dyspnea on Exertion, Edema, Irregular Heart Rhythm, Pain Radiating to Arm/Neck/Jaw, Leg Edema, Leg Ulcers, Lightheadedness, Orthopnea, Palpitations, Paroxysmal Nocturnal Dyspnea, Pedal Edema, Radiating Pain, Rapid Heart Rate, Slow Heart Rate, Syncope, Other - Respiratory Respiratory: absent: As Per HPI, Cough, Dyspnea, Hemoptysis, Dyspnea on Exertion , Wheezing, Snoring, Stridor, Pain on Inspiration, Chest Congestion, Excessive Mucous Production, Change in Mucous Color, Pain with Coughing, Other - Gastrointestinal Gastrointestinal: absent: As Per HPI, Abdominal Pain, Belching, Bloating, Change in Bowel Habits, Change in Stool Character, Coffee Ground Emesis, Constipation, Cramping, Diarrhea, Dyspepsia, Dysphagia, Early Satiety, Excessive Flatus, Fecal Incontinence, Heartburn, Hematemesis, Hematochezia, Loose Stools, Melena, Nausea, Odynophagia, Temesmus, Vomiting, Other - Genitourinary Genitourinary: absent: As Per HPI, Change in Urinary Stream, Difficulty Urinating, Dysuria, Flank Pain, Hematuria, Pyuria, Nocturia, Urinary Incontinence, Urinary Frequency, Urinary Hesitance, Urinary Urgency, Voiding Freq/Small Amts, Freq UTI, Hx Renal/Bladder Calculi, Hx /Renal Surgery, Bladder Distension, Other - Musculoskeletal Musculoskeletal: Numbness - Integumentary Integumentary: absent: As Per HPI, Acne, Alopecia, Bleeding Lesions, Change in Hair, Change in Nails, Change in Pigmentation, Changing Lesions, Dry Skin, Erythema, Furuncle, Hirsutism, Lesions, New Lesions, Non-Healing Lesions, Photosensitivity, Pruritus, Rash, Skin Pain, Skin Ulcer, Sores, Striae, Swelling , Unusual Bruising, Wounds, Jaundice, Other - Neurological Neurological: absent: As Per HPI, Abnormal Gait, Abnormal Hearing, Abnormal Movements, Abnormal Speech, Behavioral Changes, Burning Sensations, Confusion, Convulsions, Disequilibrium, Dizziness, Numbness, Focal Weakness, Frequent Falls , Headaches, Lack of Coordination, Loss of Vision, Memory Loss, Paresthesias, Radicular Pain, Restless Legs, Sensory Deficit, Syncope, Tingling, Tremor, Vertigo, Weakness, Other Visual Disturbances, Other - Psychiatric Psychiatric: absent: As Per HPI, Abnormal Sleep Pattern, Anhedonia, Anxiety, Auditory Hallucinations, Behavioral Changes, Change in Appetite, Change in Libido, Confusion, Depression, Difficulty Concentrating, Hallucinations, Homicidal Ideation, Hopelessness, Irritability, Memory Loss, Mood Swings, Panic Attacks, Paranoia, Suicidal Ideation, Visual Hallucinations, Tactile Hallucinations, Other - Endocrine Endocrine: absent: As Per HPI, Change in Body Appearance, Change in Libido, Cold Intolorance, Deepening of Voice, Excessive Sweating, Fatigue, Flushing, Heat Intolorance, Increase in Ring/Shoe/Hat Size, Palpitations, Polydipsia, Polyphagia, Polyuria, Other - Hematologic/Lymphatic Hematologic: absent: As Per HPI, Easy Bleeding, Easy Bruising, Lymphadenopathy, Other Past Patient History - Infectious Disease Hx of Infectious Diseases: None - Past Medical History & Family History Past Medical History?: Yes - Past Social History Smoking Status: Former Smoker - CARDIAC Hx Atrial Fibrillation: Yes Hx Hypercholesterolemia: Yes Hx Hypertension: Yes - PULMONARY Hx Respiratory Disorders: No - NEUROLOGICAL Hx Neurological Disorder: No Other/Comment: neuropathy - HEENT Hx HEENT Problems: No - RENAL Hx Chronic Kidney Disease: Yes - ENDOCRINE/METABOLIC Hx Endocrine Disorders: Yes - HEMATOLOGICAL/ONCOLOGICAL Hx Anemia: Yes Hx Human Immunodeficiency Virus (HIV): No - INTEGUMENTARY Hx Dermatological Problems: No - MUSCULOSKELETAL/RHEUMATOLOGICAL Hx Musculoskeletal Disorders: Yes Hx Falls: No (patient fall five times last year) - GASTROINTESTINAL Hx Gastrointestinal Disorders: Yes - GENITOURINARY/GYNECOLOGICAL Hx Genitourinary Disorders: No - PSYCHIATRIC Hx Psychophysiologic Disorder: No Hx Substance Use: No - SURGICAL HISTORY Hx Surgeries: Yes Hx Vascular Access Device: Yes - ANESTHESIA Hx Anesthesia: Yes Hx Anesthesia Reactions: No Hx Malignant Hyperthermia: No Meds Allergies/Adverse Reactions: Allergies Allergy/AdvReac Type Severity Reaction Status Date / Time No Known Allergies Allergy Verified 11/16/16 08:46 - Medications Medications: Current Medications Calcitriol (Rocaltrol) 0.25 mcg PO MWF [facility] Calcium Acetate (Phoslo) 667 mg PO TID [facility] Last Admin: 11/16/16 17:09 Dose: 667 mg Diltiazem HCl (Cardizem Cd) 120 mg PO DAILY [facility] Last Admin: 11/16/16 13:07 Dose: 120 mg Epoetin Justin (Procrit) 4,000 unit IV [facility] [place] Famotidine (Pepcid) 20 mg PO BID [facility] Last Admin: 11/16/16 17:09 Dose: 20 mg Home Med (Diclofenac Sodium [Pennsaid]) 1 appl TOP TID PRN PRN Reason: Pain, moderate (4-7) Home Med (Linaclotide [Linzess]) 145 mcg PO DAILY PRN PRN Reason: Constipation Lidocaine (Lidoderm) 1 ea TD DAILY PRN PRN Reason: Pain, Mild (1-3) Metoprolol Tartrate (Lopressor) 25 mg PO Q12 [facility] Pantoprazole Sodium (Protonix Ec Tab) 20 mg PO DAILY [facility] Sitagliptin Phosphate (Januvia) 25 mg PO DAILY [facility] Last Admin: 11/16/16 13:24 Dose: 25 mg Tamsulosin HCl (Flomax) 0.4 mg PO HS [facility] Vitamin B Complex/Vit C/Folic Acid (Nephro-Sia) 1 tab PO DAILY [facility] Last Admin: 11/16/16 13:23 Dose: 1 tab Physical Exam - Constitutional Appears: Non-toxic - Head Exam Head Exam: NORMAL INSPECTION - Eye Exam Eye Exam: Normal appearance - ENT Exam ENT Exam: Mucous Membranes Moist - Neck Exam Neck exam: Positive for: Full Rom - Respiratory Exam Respiratory Exam: NORMAL BREATHING PATTERN - Cardiovascular Exam Cardiovascular Exam: REGULAR RHYTHM - GI/Abdominal Exam GI & Abdominal Exam: Normal Bowel Sounds - Rectal Exam Rectal Exam: Deferred - Extremities Exam Extremities exam: Negative for: pedal edema - Back Exam Back exam: NORMAL INSPECTION - Neurological Exam Neurological exam: Alert, Oriented x3 - Skin Skin Exam: Normal Color Results - Vital Signs Recent Vital Signs: Last Vital Signs Temp 97.4 F L 11/16/16 15:58 Pulse 68 11/16/16 15:58 Resp 19 11/16/16 15:58 BP 158/73 H 11/16/16 15:58 Pulse Ox 98 11/16/16 15:58 - Labs Result Diagrams: 11/17/16 08:00 11/17/16 08:00 Labs: Laboratory Results - last 24 hr 11/16/16 11/16/16 11/16/16 09:25 09:25 09:25 WBC 3.9 L RBC 3.35 L Hgb 10.2 L Hct 30.6 L MCV 91.3 MCH 30.4 MCHC 33.3 RDW 15.5 H Plt Count 177 MPV 7.0 L Neut % (Auto) 59.0 Lymph % (Auto) 19.3 L [place] % (Auto) 16.6 H Eos % (Auto) 4.8 H Baso % (Auto) 0.3 Neut # 2.3 Lymph # 0.8 L [place] # 0.6 Eos # 0.2 Baso # 0.0 PT 12.4 INR 1.1 APTT 30.9 Sodium 139 Potassium 4.7 Chloride 101 Carbon Dioxide 22 Anion Gap 21 H BUN 58 H Creatinine 8.7 H* D Est GFR ( Amer) 7 Est GFR (Non-Af Amer) 6 Random Glucose 114 H Calcium 9.2 Total Bilirubin 0.5 AST 35 ALT 34 Alkaline Phosphatase 54 Total Protein 7.3 Albumin 4.3 Globulin 3.0 Albumin/Globulin Ratio 1.4 Urine Color Urine Clarity Urine pH Ur Specific [place] Urine Protein Urine Glucose (UA) Urine Ketones Urine Blood Urine Nitrate Urine Bilirubin Urine Urobilinogen Ur Leukocyte Esterase Urine RBC (Auto) Urine Microscopic WBC Ur Squamous Epith Cells 11/16/16 10:23 WBC RBC Hgb Hct MCV MCH MCHC RDW Plt Count MPV Neut % (Auto) Lymph % (Auto) [place] % (Auto) Eos % (Auto) Baso % (Auto) Neut # Lymph # [place] # Eos # Baso # PT INR APTT Sodium Potassium Chloride Carbon Dioxide Anion Gap BUN Creatinine Est GFR ( Amer) Est GFR (Non-Af Amer) Random Glucose Calcium Total Bilirubin AST ALT Alkaline Phosphatase Total Protein Albumin Globulin Albumin/Globulin Ratio Urine Color Yellow Urine Clarity Clear Urine pH 7.0 Ur Specific [place] 1.013 Urine Protein 100 Urine Glucose (UA) 50 Urine Ketones Negative Urine Blood Negative Urine Nitrate Negative Urine Bilirubin Negative Urine Urobilinogen 0.2-1.0 Ur Leukocyte Esterase Neg Urine RBC (Auto) 3 Urine Microscopic WBC 1 Ur Squamous Epith Cells < 1 - EKG Data EKG Interpreted by: Myself Assessment & Plan (1) Intractable back pain Assessment and Plan: requires laminectomy. Patient hs no angina or heart failure. He is at intermediat risk for the planned surgery. He is medically optimized. Status: Acute (2) Hyperlipidemia Status: Chronic (3) Hypertension Assessment and Plan: will monitor blood pressure Status: Chronic (4) Paroxysmal atrial fibrillation Assessment and Plan: controlled rate. not on anticoagulation Status: Chronic
--- NOTE | 2016-11-16 18:57 | CP.PCM.CON ---
History of Present Illness - History of Present Illness History of Present Illness: patient seen examined. full consult to follow. No current angina, patient requires laminectomy. Patient is stable for the planned surgery. Past Patient History - Infectious Disease Hx of Infectious Diseases: None - Past Medical History & Family History Past Medical History?: Yes - Past Social History Smoking Status: Former Smoker - CARDIAC Hx Atrial Fibrillation: Yes Hx Hypercholesterolemia: Yes Hx Hypertension: Yes - PULMONARY Hx Respiratory Disorders: No - NEUROLOGICAL Hx Neurological Disorder: No Other/Comment: neuropathy - HEENT Hx HEENT Problems: No - RENAL Hx Chronic Kidney Disease: Yes - ENDOCRINE/METABOLIC Hx Endocrine Disorders: Yes - HEMATOLOGICAL/ONCOLOGICAL Hx Anemia: Yes Hx Human Immunodeficiency Virus (HIV): No - INTEGUMENTARY Hx Dermatological Problems: No - MUSCULOSKELETAL/RHEUMATOLOGICAL Hx Musculoskeletal Disorders: Yes Hx Falls: No (patient fall five times last year) - GASTROINTESTINAL Hx Gastrointestinal Disorders: Yes - GENITOURINARY/GYNECOLOGICAL Hx Genitourinary Disorders: No - PSYCHIATRIC Hx Psychophysiologic Disorder: No Hx Substance Use: No - SURGICAL HISTORY Hx Surgeries: Yes Hx Vascular Access Device: Yes - ANESTHESIA Hx Anesthesia: Yes Hx Anesthesia Reactions: No Hx Malignant Hyperthermia: No Meds Allergies/Adverse Reactions: Allergies Allergy/AdvReac Type Severity Reaction Status Date / Time No Known Allergies Allergy Verified 11/16/16 08:46 - Medications Medications: Current Medications Calcitriol (Rocaltrol) 0.25 mcg PO MWF [facility] Calcium Acetate (Phoslo) 667 mg PO TID [facility] Last Admin: 11/16/16 17:09 Dose: 667 mg Diltiazem HCl (Cardizem Cd) 120 mg PO DAILY [facility] Last Admin: 11/16/16 13:07 Dose: 120 mg Epoetin Justin (Procrit) [facility] Famotidine (Pepcid) 20 mg PO BID [facility] Last Admin: 11/16/16 17:09 Dose: 20 mg Home Med (Diclofenac Sodium [Pennsaid]) 1 appl TOP TID PRN PRN Reason: Pain, moderate (4-7) Home Med (Linaclotide [Linzess]) 145 mcg PO DAILY PRN PRN Reason: Constipation Lidocaine (Lidoderm) 1 ea TD DAILY PRN PRN Reason: Pain, Mild (1-3) Metoprolol Tartrate (Lopressor) 25 mg PO Q12 [facility] Pantoprazole Sodium (Protonix Ec Tab) 20 mg PO DAILY [facility] Sitagliptin Phosphate (Januvia) 25 mg PO DAILY [facility] Last Admin: 11/16/16 13:24 Dose: 25 mg Tamsulosin HCl (Flomax) 0.4 mg PO HS [facility] Vitamin B Complex/Vit C/Folic Acid (Nephro-Sia) 1 tab PO DAILY [facility] Last Admin: 11/16/16 13:23 Dose: 1 tab Results - Vital Signs Recent Vital Signs: Last Vital Signs Temp 97.4 F L 11/16/16 15:58 Pulse 68 11/16/16 15:58 Resp 19 11/16/16 15:58 BP 158/73 H 11/16/16 15:58 Pulse Ox 98 11/16/16 15:58 - Labs Result Diagrams: 11/16/16 09:25 11/16/16 09:25 Labs: Laboratory Results - last 24 hr 11/16/16 11/16/16 11/16/16 09:25 09:25 09:25 WBC 3.9 L RBC 3.35 L Hgb 10.2 L Hct 30.6 L MCV 91.3 MCH 30.4 MCHC 33.3 RDW 15.5 H Plt Count 177 MPV 7.0 L Neut % (Auto) 59.0 Lymph % (Auto) 19.3 L [place] % (Auto) 16.6 H Eos % (Auto) 4.8 H Baso % (Auto) 0.3 Neut # 2.3 Lymph # 0.8 L [place] # 0.6 Eos # 0.2 Baso # 0.0 PT 12.4 INR 1.1 APTT 30.9 Sodium 139 Potassium 4.7 Chloride 101 Carbon Dioxide 22 Anion Gap 21 H BUN 58 H Creatinine 8.7 H* D Est GFR ( Amer) 7 Est GFR (Non-Af Amer) 6 Random Glucose 114 H Calcium 9.2 Total Bilirubin 0.5 AST 35 ALT 34 Alkaline Phosphatase 54 Total Protein 7.3 Albumin 4.3 Globulin 3.0 Albumin/Globulin Ratio 1.4 Urine Color Urine Clarity Urine pH Ur Specific [place] Urine Protein Urine Glucose (UA) Urine Ketones Urine Blood Urine Nitrate Urine Bilirubin Urine Urobilinogen Ur Leukocyte Esterase Urine RBC (Auto) Urine Microscopic WBC Ur Squamous Epith Cells 11/16/16 10:23 WBC RBC Hgb Hct MCV MCH MCHC RDW Plt Count MPV Neut % (Auto) Lymph % (Auto) [place] % (Auto) Eos % (Auto) Baso % (Auto) Neut # Lymph # [place] # Eos # Baso # PT INR APTT Sodium Potassium Chloride Carbon Dioxide Anion Gap BUN Creatinine Est GFR ( Amer) Est GFR (Non-Af Amer) Random Glucose Calcium Total Bilirubin AST ALT Alkaline Phosphatase Total Protein Albumin Globulin Albumin/Globulin Ratio Urine Color Yellow Urine Clarity Clear Urine pH 7.0 Ur Specific [place] 1.013 Urine Protein 100 Urine Glucose (UA) 50 Urine Ketones Negative Urine Blood Negative Urine Nitrate Negative Urine Bilirubin Negative Urine Urobilinogen 0.2-1.0 Ur Leukocyte Esterase Neg Urine RBC (Auto) 3 Urine Microscopic WBC 1 Ur Squamous Epith Cells < 1
--- NOTE | 2016-11-16 20:58 | CARD ---
APPROVED REPORT EKG Measurement Heart [id number] <Conclusion> Normal sinus rhythm Septal infarct, age undetermined Abnormal ECG
--- NOTE | 2016-11-17 08:00 | CP.PCM.CON ---
History of Present Illness - History of Present Illness History of Present Illness: Dr. Joseph asked to see pt admitted who is a 81 yo male with c/o longstanding LBP s/p multiple falls(last one 1 year ago),pt had severe cervical cervical spondylosis with myelopathy requiring an ACDF C3-C5 and partial corpectomy with [facility],LBP radiates to bilat buttocks with BLE paresthesias, ambulates with a walker,no relief with tramadol and PT,apin worsening over time, outpt imaging showing multi level Lumbar Spondylosis worse at L4-5,pt with afib on plavix held 1 week ago,denies pelvic paresthesias,bowel or bladder incontinance. Review of Systems - Review of Systems Systems not reviewed;Unavailable: Acuity of Condition - EENT Eyes: Requires Corrective Lenses - Cardiovascular Additional comments: Hx Htn and Afib - Musculoskeletal Musculoskeletal: Radiating Pain into Limb, Tingling - Neurological Neurological: As Per HPI - Endocrine Additional Comments: Hx DM - Hematologic/Lymphatic Additional comments: on Plavix,d/d 1 week ago Past Patient History - Infectious Disease Hx of Infectious Diseases: None - Tetanus Immunizations Tetanus Immunization: Unknown - Past Medical History & Family History Past Medical History?: Yes - Past Social History Smoking Status: Former Smoker Chewing Tobacco Use: No Cigar Use: No Occupation: Retired Th[employer]her [employer] Alcohol: Occasional Drugs: Denies Home Situation {Lives}: With Family Domestic Violence: Negative - CARDIAC Hx Atrial Fibrillation: Yes Hx Hypercholesterolemia: Yes Hx Hypertension: Yes - PULMONARY Hx Respiratory Disorders: No - NEUROLOGICAL Hx Neurological Disorder: No Other/Comment: neuropathy - HEENT Hx HEENT Problems: No - RENAL Hx Chronic Kidney Disease: Yes - ENDOCRINE/METABOLIC Hx Endocrine Disorders: Yes - HEMATOLOGICAL/ONCOLOGICAL Hx Anemia: Yes Hx Human Immunodeficiency Virus (HIV): No - INTEGUMENTARY Hx Dermatological Problems: No - MUSCULOSKELETAL/RHEUMATOLOGICAL Hx Musculoskeletal Disorders: Yes - GASTROINTESTINAL Hx Gastrointestinal Disorders: Yes - GENITOURINARY/GYNECOLOGICAL Hx Genitourinary Disorders: No - PSYCHIATRIC Hx Psychophysiologic Disorder: No Hx Substance Use: No - SURGICAL HISTORY Hx Surgeries: Yes Hx Vascular Access Device: Yes - ANESTHESIA Hx Anesthesia: Yes Hx Anesthesia Reactions: No Hx Malignant Hyperthermia: No Meds Allergies/Adverse Reactions: Allergies Allergy/AdvReac Type Severity Reaction Status Date / Time No Known Allergies Allergy Verified 11/16/16 08:46 - Medications Medications: Current Medications Calcitriol (Rocaltrol) 0.25 mcg PO MWF [facility] Calcium Acetate (Phoslo) 667 mg PO TID [facility] Last Admin: 11/16/16 17:09 Dose: 667 mg Diltiazem HCl (Cardizem Cd) 120 mg PO DAILY [facility] Last Admin: 11/16/16 13:07 Dose: 120 mg Epoetin Justin (Procrit) 4,000 unit IV MWF [facility] Last Admin: 11/16/16 21:24 Dose: 4,000 unit Famotidine (Pepcid) 20 mg PO BID [facility] Last Admin: 11/16/16 17:09 Dose: 20 mg Home Med (Diclofenac Sodium [Pennsaid]) 1 appl TOP TID PRN PRN Reason: Pain, moderate (4-7) Home Med (Linaclotide [Linzess]) 145 mcg PO DAILY PRN PRN Reason: Constipation Lidocaine (Lidoderm) 1 ea TD DAILY PRN PRN Reason: Pain, Mild (1-3) Metoprolol Tartrate (Lopressor) 25 mg PO Q12 [facility] Last Admin: 11/16/16 22:51 Dose: 25 mg Pantoprazole Sodium (Protonix Ec Tab) 20 mg PO DAILY [facility] Sitagliptin Phosphate (Januvia) 25 mg PO DAILY [facility] Last Admin: 11/16/16 13:24 Dose: 25 mg Tamsulosin HCl (Flomax) 0.4 mg PO HS [facility] Last Admin: 11/16/16 22:48 Dose: 0.4 mg Vitamin B Complex/Vit C/Folic Acid (Nephro-Sia) 1 tab PO DAILY [facility] Last Admin: 11/16/16 13:23 Dose: 1 tab Physical Exam - Constitutional Appears: Well, Non-toxic, No Acute Distress - Head Exam Head Exam: ATRAUMATIC, NORMAL INSPECTION, NORMOCEPHALIC - Eye Exam Eye Exam: EOMI, Normal appearance, PERRL Pupil Exam: NORMAL ACCOMODATION - ENT Exam ENT Exam: Mucous Membranes Moist - Neck Exam Additional comments: healed anterior cervical scar - Respiratory Exam Respiratory Exam: Clear to Auscultation Bilateral - Cardiovascular Exam Cardiovascular Exam: Irregular Rhythm, +S1, +S2 - GI/Abdominal Exam GI & Abdominal Exam: Normal Bowel Sounds, Soft - Rectal Exam Rectal Exam: Deferred - Extremities Exam Extremities exam: Positive for: normal inspection, pedal pulses present Additional comments: calves soft/NT - Back Exam Back exam: vertebral tenderness Additional comments: Bilateral paralumbar and gluteal tenderness to palpation - Neurological Exam Neurological exam: Alert, Oriented x3 Additional comments: ZULETA x 4 antigravity with 4 to 4+ strength BLE,4+ to 5/5 BUE,BLE SLR 40 degree's, decreased sensation BLE L4-5 dermatomes,sensation intact BUE,depressed DTR's, neg babinski - Psychiatric Exam Psychiatric exam: Normal Affect, Normal Mood Results - Vital Signs Recent Vital Signs: Last Vital Signs Temp 98.2 F 11/17/16 00:15 Pulse 94 H 11/17/16 00:15 Resp 18 11/17/16 00:15 BP 149/67 11/17/16 00:15 Pulse Ox 98 11/17/16 00:15 - Labs Result Diagrams: 11/18/16 06:25 11/17/16 08:00 Labs: Laboratory Results - last 24 hr 11/16/16 11/16/16 11/16/16 09:21 09:25 09:25 WBC 3.9 L RBC 3.35 L Hgb 10.2 L Hct 30.6 L MCV 91.3 MCH 30.4 MCHC 33.3 RDW 15.5 H Plt Count 177 MPV 7.0 L Neut % (Auto) 59.0 Lymph % (Auto) 19.3 L [place] % (Auto) 16.6 H Eos % (Auto) 4.8 H Baso % (Auto) 0.3 Neut # 2.3 Lymph # 0.8 L [place] # 0.6 Eos # 0.2 Baso # 0.0 PT INR APTT Sodium 139 Potassium 4.7 Chloride 101 Carbon Dioxide 22 Anion Gap 21 H BUN 58 H Creatinine 8.7 H* D Est GFR ( Amer) 7 Est GFR (Non-Af Amer) 6 POC Glucose (mg/dL) 122 H Random Glucose 114 H Calcium 9.2 Total Bilirubin 0.5 AST 35 ALT 34 Alkaline Phosphatase 54 Total Protein 7.3 Albumin 4.3 Globulin 3.0 Albumin/Globulin Ratio 1.4 Urine Color Urine Clarity Urine pH Ur Specific [place] Urine Protein Urine Glucose (UA) Urine Ketones Urine Blood Urine Nitrate Urine Bilirubin Urine Urobilinogen Ur Leukocyte Esterase Urine RBC (Auto) Urine Microscopic WBC Ur Squamous Epith Cells 11/16/16 11/16/16 09:25 10:23 WBC RBC Hgb Hct MCV MCH MCHC RDW Plt Count MPV Neut % (Auto) Lymph % (Auto) [place] % (Auto) Eos % (Auto) Baso % (Auto) Neut # Lymph # [place] # Eos # Baso # PT 12.4 INR 1.1 APTT 30.9 Sodium Potassium Chloride Carbon Dioxide Anion Gap BUN Creatinine Est GFR ( Amer) Est GFR (Non-Af Amer) POC Glucose (mg/dL) Random Glucose Calcium Total Bilirubin AST ALT Alkaline Phosphatase Total Protein Albumin Globulin Albumin/Globulin Ratio Urine Color Yellow Urine Clarity Clear Urine pH 7.0 Ur Specific [place] 1.013 Urine Protein 100 Urine Glucose (UA) 50 Urine Ketones Negative Urine Blood Negative Urine Nitrate Negative Urine Bilirubin Negative Urine Urobilinogen 0.2-1.0 Ur Leukocyte Esterase Neg Urine RBC (Auto) 3 Urine Microscopic WBC 1 Ur Squamous Epith Cells < 1 - Impressions Impression: MRI images reviewed by Dr. Joseph Assessment & Plan - Assessment and Plan (Free Text) Assessment: 81 yo male with Lumbar Spondylosis/HNP L4-5,Radiculapathy BLE,Hx Htn,Afib/rate controlled,DM,HLD,ESRD on HD (HD yesterday)Hemodynamically stable. Plan: pt to have a proposed Decompressive Lumbar Laminectomy L4-5 since pt's symptoms worsening and he has failed conservative management,risks and benefits explained to pt by Dr. Joseph,pt and expressed understanding and wishes to proceed.
[2016-11-17 08:45] LABS: HEMOGLOBIN 11.7 g/dL (12.0-18.0); MEAN CELL VOLUME 92.1 fl (80.0-94.0); MEAN CORPUSCULAR HEMOGLOBIN 29.3 pg (27.0-31.0); MEAN CORPUSCULAR HGB CONC 31.9 g/dL (33.0-37.0); RBC 3.97 Mil/uL (4.40-5.90); RED CELL DISTRIBUTION WIDTH 16.2 % (11.5-14.5); WHITE BLOOD COUNT 3.9 K/uL (4.8-10.8)
[2016-11-17] MEDS ORDERED: Rocuronium 10 mg/ml (5 ml) ONE (08:55)
[2016-11-17] MEDS ORDERED: Propofol 10 mg/ml Inj (20 ML) ONE (08:55)
[2016-11-17] MEDS ORDERED: Succinylcholine 200 mg/10 ml Inj IV ONE (08:56)
[2016-11-17] MEDS ORDERED: Phenylephrine 10 mg/ml Inj ONE (08:56)
[2016-11-17] MEDS ORDERED: Etomidate 20 mg/10ml Inj IV ONE (08:56)
[2016-11-17] MEDS ORDERED: Lidocaine 4% (Laryng-O-Jet) Kit MM ONE (08:56)
[2016-11-17 09:06] LABS: CALCIUM 9.4 mg/dL (8.4-10.2)
[2016-11-17] MEDS: Pantoprazole 20 mg EC Tab PO SCH (09:07)
[2016-11-17] MEDS: diltiaZEM 120 mg/24 Hours CD Cap PO SCH (09:07)
[2016-11-17] MEDS: Multivitamin Vitamin B Complex (Nephro-Vite) Tab PO SCH (09:07)
--- NOTE | 2016-11-17 09:28 | PQF ANEMIA ---
This form is a permanent part of the medical record 11/17/16 Dr. Webber, Please clarify the type of anemia if known. Patient with a history of anemia and ESRD on dialysis. H&H 10.230.6. Medication includes Procrit. Clarification of your documentation is requested to better reflect the severity of illness and intensity of treatment of your patient. Indicators present [x] Anemia [] Drop in H&H from []___ to []___ [] Hypotension [] GI Bleed [] Transfusion(s) [] Acute bleed other sites [] Tachycardia [] Surgical Procedure Blood Loss (expected not a complication) Other:[] Location in the medical record that reflects the above clinical findings: [] Treatment Provided: [x] PHYSICIAN'S RESPONSE Based on your medical judgment of the clinical indicators outlined above, are you treating this patient for a known or suspected: [] Acute blood loss anemia [] Chronic blood loss anemia [] Acute on Chronic blood loss anemia [] Anemia due to malignancy [] Anemia due to chemotherapy or radiation therapy [] Anemia due to Chronic Kidney Disease / Failure [] Anemia of Chronic Disease, please specify: [] [] Other, please indicate type of anemia []____ [] If Unable to Determine, please check the box, sign and date. Present On Admission (POA) Indicator: [] Present at the time of admission [] Not present at the time of admission [] Clinically Undetermined In responding to this query, please exercise your independent professional judgment. The fact that a question is asked does not imply that any particular answer is desired or expected. Thank you for your clarification on this documentation. If you have any questions please call:ext [phone] * Thank you, Diya Chun RN CDMP MTDD
--- NOTE | 2016-11-17 09:30 | PQF GENQUE ---
This form is a permanent part of the medical record 11/17/16 Dr. Webber, Please clarify the type of atrial fibrillation if known. Documentation of a history of atrial fibrillation. EKG: NSR. Medication includes : Cardizem CD, Lopressor Clarification of your documentation is requested to better reflect the severity of illness and intensity of treatment of your patient. Indicators present [] Specify: [] [] Specify: [] [] Specify: [] [] Specify: [] Location in the medical record that reflects the above clinical findings: [] Treatment Provided: [] PHYSICIAN'S RESPONSE Based on your medical judgment of the clinical indicators outlined above please clarify the following: [] Practitioner response [] If unable to determine, please check the box, sign and date. Present On Admission (POA) Indicator: [] Present at the time of admission [] Not present at the time of admission [] Clinically Undetermined In responding to this query, please exercise your independent professional judgment. The fact that a question is asked does not imply that any particular answer is desired or expected. Thank you for your clarification on this documentation. If you have any questions please call:ext [phone] * Thank you, Diya Chun RN [facility]
[2016-11-17] MEDS ORDERED: Lidocaine 2% w Epi 1:100,000 Inj IJ ONE ×2 (09:34→09:38)
[2016-11-17] MEDS ORDERED: Absorbable Gelatin Sponge Size 100 ONE (09:34)
[2016-11-17] MEDS ORDERED: Midazolam 2 MG/2 ML VIAL ONE (09:42)
[2016-11-17] MEDS ORDERED: Sodium Chloride 0.9% 500 ML IV ONE (09:50)
[2016-11-17] MEDS ORDERED: Sodium Chloride 0.9% 100 ML IV ONE (10:00)
[2016-11-17] MEDS ORDERED: ePHEDrine 50 mg/ml Inj ONE (10:28)
[2016-11-17] MEDS ORDERED: Thrombin Topical 5,000 IU Spray Kit TOP ONE (10:30)
[2016-11-17] MEDS ORDERED: Absorbable Gelatin Sponge Size 100 TP ONE (10:30)
[2016-11-17] MEDS ORDERED: Neostigmine Methylsulfate 3mg/3ml Syringe IV ONE (10:36)
--- NOTE | 2016-11-17 10:44 | CP.PCM.PN ---
Subjective - Date & Time of Evaluation Date of Evaluation: 11/17/16 Time of Evaluation: 10:43 - Subjective Subjective: Patient went for the surgery on the spine Patient tolerated hemodialysis well Vital sign noted to be okay Lab work reviewed to be acceptable Objective - Vital Signs/Intake and Output Vital Signs (last 24 hours): Temp Pulse Resp BP Pulse Ox 98.4 F 74 20 118/71 99 11/17/16 09:00 11/17/16 09:03 11/17/16 09:00 11/17/16 09:03 11/17/16 09:00 Intake and Output: 11/17/16 11/17/16 06:59 18:59 Intake Total 100 Balance 100 - Medications Medications: Current Medications Calcitriol (Rocaltrol) 0.25 mcg PO MWF [facility] Calcium Acetate (Phoslo) 667 mg PO TID [facility] Last Admin: 11/17/16 09:07 Dose: Not Given Diltiazem HCl (Cardizem Cd) 120 mg PO DAILY [facility] Last Admin: 11/17/16 09:07 Dose: Not Given Epoetin Justin (Procrit) 4,000 [place] [facility] Admin: 11/16/16 21:24 Dose: 4,000 unit Famotidine (Pepcid) 20 mg PO BID [facility] Last Admin: 11/17/16 09:07 Dose: Not Given Home Med (Diclofenac Sodium [Pennsaid]) 1 appl TOP TID PRN PRN Reason: Pain, moderate (4-7) Home Med (Linaclotide [Linzess]) 145 mcg PO DAILY PRN PRN Reason: Constipation Lidocaine (Lidoderm) 1 ea TD DAILY PRN PRN Reason: Pain, Mild (1-3) Metoprolol Tartrate (Lopressor) 25 mg PO Q12 [facility] Last Admin: 11/17/16 09:03 Dose: 25 mg Pantoprazole Sodium (Protonix Ec Tab) 20 mg PO DAILY [facility] Last Admin: 11/17/16 09:07 Dose: Not Given Sitagliptin Phosphate (Januvia) 25 mg PO DAILY [facility] Last Admin: 11/17/16 09:07 Dose: Not Given Tamsulosin HCl (Flomax) 0.4 mg PO HS [facility] Last Admin: 11/16/16 22:48 Dose: 0.4 mg Vitamin B Complex/Vit C/Folic Acid (Nephro-Sia) 1 tab PO DAILY [facility] Last Admin: 11/17/16 09:07 Dose: Not Given - Labs Labs: 11/17/16 08:00 11/17/16 08:00 PT 12.4 Seconds (9.8-13.1) 11/16/16 09:25 INR 1.1 (0.9-1.2) 11/16/16 09:25 APTT 30.9 Seconds (25.6-37.1) 11/16/16 09:25 - Constitutional Appears: No Acute Distress - ENT Exam ENT Exam: Mucous Membranes Moist - Respiratory Exam Respiratory Exam: NORMAL BREATHING PATTERN. absent: Chest Wall Tenderness - Cardiovascular Exam Cardiovascular Exam: absent: JVD, Rubs - GI/Abdominal Exam GI & Abdominal Exam: Normal Bowel Sounds - Extremities Exam Extremities Exam: absent: Calf Tenderness - Back Exam Back Exam: absent: CVA tenderness (L), CVA tenderness (R) - Neurological Exam Neurological Exam: Alert Assessment and Plan (1) Chronic kidney disease with end stage renal failure on dialysis Assessment & Plan: Patient is for spine surgery End stage renal disease scheduled for hemodialysis tomorrow and MWF Patient is clinically stable Continue monitoring Status: Acute (2) Intractable back pain Status: Acute
[2016-11-17] MEDS: Morphine 4 MG/ML VIAL IVP PRN ×2 (11:01→12:05)
[2016-11-17] MEDS ORDERED: Sodium Chloride 0.9% 1,000 ML IV SCH (11:15)
[2016-11-17] MEDS ORDERED: Oxycodone/Acetaminophen 5/325 mg Tab PO PRN (11:20)
[2016-11-17] MEDS ORDERED: Morphine 4 MG/ML VIAL IVP PRN (11:21)
[2016-11-17 12:25] LABS: HEPATITIS B SURFACE AG NEGATIVE (NEGATIVE)
--- NOTE | 2016-11-17 12:29 | RAD ---
PROCEDURE: Intraoperative fluoroscopy HISTORY: LUMBER COMPARISON: Not available TECHNIQUE: Intraoperative fluoroscopy was provided. Total time of fluoroscopy was 2.9 seconds. FINDINGS: A single fluoroscopic spot film is submitted. This is on file for review. IMPRESSION: Fluoroscopy provided.
[2016-11-17 12:43] LABS: HEPATITIS C ANTIBODY NEGATIVE (NEGATIVE)
--- NOTE | 2016-11-17 13:35 | CP.PCM.PN ---
Subjective - Date & Time of Evaluation Date of Evaluation: 11/17/16 Time of Evaluation: 13:35 - Subjective Subjective: 81 y/o male with PMHx of HTN, CKD requiring HD, afib, whom had longstanding LBP radiating to his LEs that failed conservative tx seen and examined at bedside. Pt is s/p L4-L5 Laminectomy POD#0. Pt tolerated the procedure well. Currently awake and oriented X3. Complains of minor left lower back pain that is controlled with medications. No other complaints. Denies fever/chills, headaches , changes in vision, CP/SOB/Palpitations, N/V/D/C, urinary symptoms, numbness/ tingling. Objective - Vital Signs/Intake and Output Vital Signs (last 24 hours): Temp Pulse Resp BP Pulse Ox 97.3 F L 66 20 142/63 94 L 11/17/16 12:00 11/17/16 13:00 11/17/16 13:00 11/17/16 13:00 11/17/16 13:00 Intake and Output: 11/17/16 11/17/16 06:59 18:59 Intake Total 300 Balance 300 - Medications Medications: Current Medications Calcitriol (Rocaltrol) 0.25 mcg PO MWF [facility] Calcium Acetate (Phoslo) 667 mg PO TID [facility] Last Admin: 11/17/16 09:07 Dose: Not Given Diltiazem HCl (Cardizem Cd) 120 mg PO DAILY [facility] Last Admin: 11/17/16 09:07 Dose: Not Given Docusate Sodium (Colace) 100 mg PO BID [facility] Epoetin Justin (Procrit) 4,000 unit IV MWF [facility] Famotidine (Pepcid) 20 mg PO BID [facility] Last Admin: 11/17/16 09:07 Dose: Not Given Sodium Chloride (Sodium Chloride 0.9%) 1,000 mls @ 100 mls/hr IV .Q10H [facility] Cefazolin Sodium 1 gm/ Sodium (Chloride) 100 mls @ 100 mls/hr IVPB Q12 [facility] Lidocaine (Lidoderm) 1 ea TD DAILY PRN PRN Reason: Pain, Mild (1-3) Metoprolol Tartrate (Lopressor) 25 mg PO Q12 [facility] Last Admin: 11/17/16 09:03 Dose: 25 mg Morphine Sulfate (Morphine) 2 mg IVP Q4 PRN PRN Reason: Pain, severe (8-10) Oxycodone/Acetaminophen (Percocet 5/325 Mg Tab) 1 tab PO Q4 PRN PRN Reason: Pain, moderate (4-7) Stop: 11/20/16 11:21 Pantoprazole Sodium (Protonix Ec Tab) 20 mg PO DAILY [facility] Last Admin: 11/17/16 09:07 Dose: Not Given Sennosides (Senokot Tab) 17.2 mg PO HS [facility] Sitagliptin Phosphate (Januvia) 25 mg PO DAILY [facility] Last Admin: 11/17/16 09:07 Dose: Not Given Tamsulosin HCl (Flomax) 0.4 mg PO HS [facility] Last Admin: 11/16/16 22:48 Dose: 0.4 mg Vitamin B Complex/Vit C/Folic Acid (Nephro-Sia) 1 tab PO DAILY [facility] Last Admin: 11/17/16 09:07 Dose: Not Given - Labs Labs: 11/17/16 08:00 11/17/16 08:00 PT 12.4 Seconds (9.8-13.1) 11/16/16 09:25 INR 1.1 (0.9-1.2) 11/16/16 09:25 APTT 30.9 Seconds (25.6-37.1) 11/16/16 09:25 - Constitutional Appears: Non-toxic, No Acute Distress - Head Exam Head Exam: ATRAUMATIC, NORMOCEPHALIC - Eye Exam Eye Exam: EOMI. absent: Conjunctival injection, Scleral icterus Pupil Exam: PERRL - ENT Exam ENT Exam: Mucous Membranes Moist - Neck Exam Neck Exam: Full ROM, Normal Inspection. absent: Tenderness - Respiratory Exam Respiratory Exam: Clear to Ausculation Bilateral, NORMAL BREATHING PATTERN. absent: Accessory Muscle Use, Rales, Rhonchi, Wheezes - Cardiovascular Exam Cardiovascular Exam: REGULAR RHYTHM, RRR, +S1, +S2. absent: Tachycardia, Diastolic murmur, Gallop, JVD, Rubs, Murmur - GI/Abdominal Exam GI & Abdominal Exam: Soft, Normal Bowel Sounds. absent: Distended, Firm, Guarding, Rigid, Tenderness - Extremities Exam Extremities Exam: Normal Inspection (SCDs and compression stockings currently on pt). absent: Calf Tenderness, Pedal Edema, Tenderness - Neurological Exam Neurological Exam: Alert, Awake, CN II-XII Intact, Oriented x3 - Psychiatric Exam Psychiatric exam: Depressed, Normal Affect - Skin Skin Exam: Dry, Intact, Normal Color, Warm Assessment and Plan (1) S/P laminectomy Assessment & Plan: s/p L4-L5 laminectomy POD #0 pain control advance diet as tolerated PT eval/tx Status: Acute (2) Hypertension Assessment & Plan: c/w home meds Status: Chronic (3) Paroxysmal atrial fibrillation Assessment & Plan: c/w with home meds Status: Chronic (4) CKD (chronic kidney disease) stage 5, GFR less than 15 ml/min Assessment & Plan: pt undergoes HD every M, W, currently being followed by Dr. Stokes s/p Hemodialysis Wednesday/ BMP Status: Chronic (5) Hyperlipidemia Assessment & Plan: c/w home meds Status: Chronic (6) DVT prophylaxis Assessment & Plan: scds compression stockings Status: Acute
--- NOTE | 2016-11-17 19:01 | CARD ---
APPROVED REPORT EKG Measurement Heart [id number] <Conclusion> Normal sinus rhythm Septal infarct, age undetermined Prolonged QT Abnormal ECG
[2016-11-18] MEDS: ceFAZolin 1 GM in Sodium Chloride 0.9% 100 ML IVPB SCH ×3 (00:26→20:12)
[2016-11-18 07:28] LABS: BASO % 1.1 % (0.0-2.0); EOS # 0.1 K/uL (0.0-0.7); EOS % 2.8 % (0.0-4.0); LYMPH # 0.5 K/uL (1.0-4.3); LYMPH % 14.4 % (20.0-40.0); MEAN CELL VOLUME 92.7 fl (80.0-94.0); MEAN CORPUSCULAR HEMOGLOBIN 29.8 pg (27.0-31.0); MEAN CORPUSCULAR HGB CONC 32.1 g/dL (33.0-37.0); MEAN PLATELET VOLUME 7.3 fl (7.2-11.7); MONO # 0.8 K/uL (0.0-0.8); MONO % 23.1 % (0.0-10.0); NEUT % 58.6 % (50.0-75.0); NRBC % 0.1 % (0.0-0.0); PLATELET COUNT 158 K/uL (130-400); RBC 3.34 Mil/uL (4.40-5.90); RED CELL DISTRIBUTION WIDTH 16.4 % (11.5-14.5); WHITE BLOOD COUNT 3.4 K/uL (4.8-10.8)
[2016-11-18] MEDS ORDERED: Epoetin Alfa 4000 UNIT/ML Inj IV SCH (09:00)
[2016-11-18 09:45] LABS: ANISOCYTOSIS SLIGHT; EOSINOPHIL 4 % (0-7); LYMPHOCYTE 9 % (20-50); MONOCYTE 24 % (0-10); NEUTROPHIL 63 % (42-75); PLATELET ESTIMATE NORMAL (NORMAL); TOTAL CELLS COUNTED 100
[2016-11-18 09:46] LABS: HYPOCHROMIC SLIGHT; OVALOCYTES SLIGHT; POLYCHROMIC SLIGHT; SCHISTOCYTES SLIGHT; TEARDROP CELLS SLIGHT
[2016-11-18] MEDS: diltiaZEM 120 mg/24 Hours CD Cap PO SCH (10:25)
[2016-11-18] MEDS: Multivitamin Vitamin B Complex (Nephro-Vite) Tab PO SCH (10:27)
[2016-11-18] MEDS: Pantoprazole 20 mg EC Tab PO SCH (10:28)
--- NOTE | 2016-11-18 10:39 | OP ---
PROCEDURE DATE: 11/17/2016 PREOPERATIVE DIAGNOSES: Lumbar spondylosis and herniated central disk, hard. POSTOPERATIVE DIAGNOSES: Lumbar spondylosis and herniated central disk, hard. PROCEDURE: L4-L5 laminectomy, decompression, fluoroscopy has been used. SURGEON: Guillaume Joseph MD CHILI MAKER: Anneliese Forbes PA-C. Anneliese Forbes is a physician drilling assistant who helped me perform the surgery. She stayed throughout the case. DESCRIPTION OF PROCEDURE: The patient was brought to the operating room, administered with general endotracheal anesthesia, placed in a prone position on a Jax table. Care was taken to protect all the pressure points. Back of the lumbar area was thoroughly prepped and draped in same sterile manner after marking was consistent for lumbar laminectomy at L4-L5. After prepping and draping the area, skin had been incised. Bleeding skins have been controlled by bipolar qa consultant. After using a Bovie qa consultant, paraspinal muscles had been detached, attachments of spinous process, lamina of L4-5 bilaterally. Identification of the levels has been done with the help of fluoroscopy. By using a Leksell rongeur, the spinous process of L4 and L5 have been removed. By using a high-speed, the lamina has been thinned to actual thickness. By using a fine Kerrison punch, *------* lamina and medial part of the facets and ligamentum flavum had been removed. Decompression had been achieved. Note that neural tube had been retracted medially and there was a herniated disk noted; however, it was firm. Hence, no diskectomy had been performed. After that, hemostasis was best achieved. Jax drain placed to the wound, brought out through a separate stab incision. Muscles and fascia were closed with 1 Vicryl, subcutaneous closed with 3 Vicryl. Skin had been closed with intradermal 3 Vicryl stitches. The patient tolerated the procedure and after procedure mobilized to the recovery room in stable condition. Guillaume Joseph MD
--- NOTE | 2016-11-18 11:06 | CP.PCM.PN ---
Subjective - Date & Time of Evaluation Date of Evaluation: 11/18/16 Time of Evaluation: 11:06 - Subjective Subjective: patient sitting out of bed in the chair he appears to be smiling comfortable socializing Objective - Vital Signs/Intake and Output Vital Signs (last 24 hours): Temp Pulse Resp BP Pulse Ox 98.3 F 73 18 151/72 H 97 11/18/16 08:00 11/18/16 08:00 11/18/16 08:00 11/18/16 10:25 11/18/16 08:00 Intake and Output: 11/18/16 11/18/16 06:59 18:59 Intake Total 250 Output Total 130 Balance 120 - Medications Medications: Current Medications Calcitriol (Rocaltrol) 0.25 mcg PO MWF [facility] Last Admin: 11/18/16 10:28 Dose: 0.25 mcg Calcium Acetate (Phoslo) 667 mg PO TID [facility] Last Admin: 11/18/16 10:28 Dose: 667 mg Diltiazem HCl (Cardizem Cd) 120 mg PO DAILY [facility] Last Admin: 11/18/16 10:25 Dose: 120 mg Docusate Sodium (Colace) 100 mg PO BID [facility] Last Admin: 11/18/16 10:26 Dose: 100 mg Epoetin Justin (Procrit) 4,000 unit IV [facility] Famotidine (Pepcid) 20 mg PO BID [facility] Last Admin: 11/18/16 10:27 Dose: 20 mg Sodium Chloride (Sodium Chloride 0.9%) 1,000 mls @ 100 mls/hr IV .Q10H [facility] Cefazolin Sodium 1 gm/ Sodium (Chloride) 100 mls @ 100 mls/hr IVPB Q12 [facility] Last Admin: 11/18/16 10:24 Dose: 100 mls/hr Lidocaine (Lidoderm) 1 ea TD DAILY PRN PRN Reason: Pain, Mild (1-3) Metoprolol Tartrate (Lopressor) 25 mg PO Q12 [facility] Last Admin: 11/18/16 10:27 Dose: 25 mg Morphine Sulfate (Morphine) 2 mg IVP Q4 PRN PRN Reason: Pain, severe (8-10) Last Admin: 11/17/16 21:12 Dose: 2 mg Oxycodone/Acetaminophen (Percocet 5/325 Mg Tab) 1 tab PO Q4 PRN PRN Reason: Pain, moderate (4-7) Stop: 11/20/16 11:21 Pantoprazole Sodium (Protonix Ec Tab) 20 mg PO DAILY [facility] Last Admin: 11/18/16 10:28 Dose: 20 mg Sennosides (Senokot Tab) 17.2 mg PO HS [facility] Last Admin: 11/17/16 22:00 Dose: 17.2 mg Sitagliptin Phosphate (Januvia) 25 mg PO DAILY [facility] Last Admin: 11/18/16 10:27 Dose: 25 mg Tamsulosin HCl (Flomax) 0.4 mg PO HS [facility] Last Admin: 11/18/16 00:25 Dose: 0.4 mg Vitamin B Complex/Vit C/Folic Acid (Nephro-Sia) 1 tab PO DAILY [facility] Last Admin: 11/18/16 10:27 Dose: 1 tab - Labs Labs: 11/18/16 06:25 11/17/16 08:00 PT 12.4 Seconds (9.8-13.1) 11/16/16 09:25 INR 1.1 (0.9-1.2) 11/16/16 09:25 APTT 30.9 Seconds (25.6-37.1) 11/16/16 09:25 - Constitutional Appears: No Acute Distress - ENT Exam ENT Exam: Mucous Membranes Moist - Respiratory Exam Respiratory Exam: NORMAL BREATHING PATTERN. absent: Chest Wall Tenderness - GI/Abdominal Exam GI & Abdominal Exam: absent: Guarding - Extremities Exam Extremities Exam: absent: Calf Tenderness - Back Exam Back Exam: absent: CVA tenderness (L), CVA tenderness (R) - Neurological Exam Neurological Exam: Alert Assessment and Plan (1) Chronic kidney disease with end stage renal failure on dialysis Assessment & Plan: End stage renal disease patient to have dialysis shortly as scheduled. Vital sign noted to be good today day 1 postlaminectomy of the lower back . Hemodialysis ordered discussed with the patient and the at the bedside 3-1/2 hours with potassium bath 2 mEq Sodium bath 138 Bicarbonate bath 34 Ultrafiltration about 2000 mL as tolerated Continue monitoring patient receiving EPO for anemia Patient receiving calcitriol. Status: Acute (2) Intractable back pain Status: Acute
--- NOTE | 2016-11-18 11:36 | CP.PCM.PN ---
Subjective - Date & Time of Evaluation Date of Evaluation: 11/18/16 Time of Evaluation: 10:00 - Subjective Subjective: pt seen and examined at bedside. no acute events overnight. pt reports moderate pain overngiht that was controlled with medications. Drain still in place. Pt in good spirts. oob in chair but not ambulating yet. No new complaints. Tolerating PO intake without difficutly. Denies fever/chills, headaches, changes in vision, CP/SOB/BHAT/Palpitations, N/V/D/C, urinary symptoms, new onset numbness/tingling. Objective - Vital Signs/Intake and Output Vital Signs (last 24 hours): Temp Pulse Resp BP Pulse Ox 98.3 F 73 18 151/72 H 97 11/18/16 08:00 11/18/16 08:00 11/18/16 08:00 11/18/16 10:25 11/18/16 08:00 Intake and Output: 11/18/16 11/18/16 06:59 18:59 Intake Total 250 Output Total 130 Balance 120 - Medications Medications: Current Medications Calcitriol (Rocaltrol) 0.25 mcg PO MWF [facility] Last Admin: 11/18/16 10:28 Dose: 0.25 mcg Calcium Acetate (Phoslo) 667 mg PO TID [facility] Last Admin: 11/18/16 10:28 Dose: 667 mg Diltiazem HCl (Cardizem Cd) 120 mg PO DAILY [facility] Last Admin: 11/18/16 10:25 Dose: 120 mg Docusate Sodium (Colace) 100 mg PO BID [facility] Last Admin: 11/18/16 10:26 Dose: 100 mg Epoetin Justin (Procrit) 4,000 unit IV F [facility] Famotidine (Pepcid) 20 mg PO BID [facility] Last Admin: 11/18/16 10:27 Dose: 20 mg Sodium Chloride (Sodium Chloride 0.9%) 1,000 mls @ 100 mls/hr IV .Q10H [facility] Cefazolin Sodium 1 gm/ Sodium (Chloride) 100 mls @ 100 mls/hr IVPB Q12 [facility] Last Admin: 11/18/16 10:24 Dose: 100 mls/hr Lidocaine (Lidoderm) 1 ea TD DAILY PRN PRN Reason: Pain, Mild (1-3) Metoprolol Tartrate (Lopressor) 25 mg PO Q12 [facility] Last Admin: 11/18/16 10:27 Dose: 25 mg Morphine Sulfate (Morphine) 2 mg IVP Q4 PRN PRN Reason: Pain, severe (8-10) Last Admin: 11/17/16 21:12 Dose: 2 mg Oxycodone/Acetaminophen (Percocet 5/325 Mg Tab) 1 tab PO Q4 PRN PRN Reason: Pain, moderate (4-7) Stop: 11/20/16 11:21 Pantoprazole Sodium (Protonix Ec Tab) 20 mg PO DAILY [facility] Last Admin: 11/18/16 10:28 Dose: 20 mg Sennosides (Senokot Tab) 17.2 mg PO HS [facility] Last Admin: 11/17/16 22:00 Dose: 17.2 mg Sitagliptin Phosphate (Januvia) 25 mg PO DAILY [facility] Last Admin: 11/18/16 10:27 Dose: 25 mg Tamsulosin HCl (Flomax) 0.4 mg PO [facility] Last Admin: 11/18/16 00:25 Dose: 0.4 mg Vitamin B Complex/Vit C/Folic Acid (Nephro-Sia) 1 tab PO DAILY [facility] Last Admin: 11/18/16 10:27 Dose: 1 tab - Labs Labs: 11/18/16 06:25 11/17/16 08:00 PT 12.4 Seconds (9.8-13.1) 11/16/16 09:25 INR 1.1 (0.9-1.2) 11/16/16 09:25 APTT 30.9 Seconds (25.6-37.1) 11/16/16 09:25 - Constitutional Appears: Well, Non-toxic, No Acute Distress - Head Exam Head Exam: ATRAUMATIC, NORMOCEPHALIC - Eye Exam Eye Exam: EOMI Pupil Exam: PERRL - ENT Exam ENT Exam: Mucous Membranes Moist - Respiratory Exam Respiratory Exam: Clear to Ausculation Bilateral, NORMAL BREATHING PATTERN. absent: Rales, Rhonchi, Wheezes - Cardiovascular Exam Cardiovascular Exam: REGULAR RHYTHM, RRR, +S1, +S2. absent: Diastolic murmur, Gallop, JVD, Rubs, Murmur - GI/Abdominal Exam GI & Abdominal Exam: Soft, Normal Bowel Sounds. absent: Firm, Guarding, Rigid, Tenderness, Rebound - Extremities Exam Extremities Exam: Normal Inspection, Tenderness. absent: Calf Tenderness, Pedal Edema - Neurological Exam Neurological Exam: Alert, Awake, CN II-XII Intact, Oriented x3 - Psychiatric Exam Psychiatric exam: Normal Affect, Normal Mood - Skin Skin Exam: Dry, Normal Color, Warm Assessment and Plan (1) S/P laminectomy Assessment & Plan: POD #1 pain control oob/ambulation PT Eval/tx for possible placement to acute rehab Status: Acute (2) Hypertension Assessment & Plan: c/w home meds Status: Chronic (3) Paroxysmal atrial fibrillation Assessment & Plan: c/w home meds Status: Chronic (4) CKD (chronic kidney disease) stage 5, GFR less than 15 ml/min Assessment & Plan: currently being followed by Dr. Stokes. pt for HD today Status: Chronic (5) Hyperlipidemia Assessment & Plan: c/w home meds Status: Chronic (6) DVT prophylaxis Assessment & Plan: ambulation scds compression stockings Status: Acute
--- NOTE | 2016-11-18 13:42 | CP.PCM.PN ---
Subjective - Date & Time of Evaluation Date of Evaluation: 11/18/16 Time of Evaluation: 07:30 - Subjective Subjective: pt with incisional pain controlled with pain meds,bilateral buttock pain and bilateral foot paresthesias improved since surgery,OOB with PT,tim PO,voiding,+ flatus Objective - Vital Signs/Intake and Output Vital Signs (last 24 hours): Temp Pulse Resp BP Pulse Ox 98 F 75 18 164/75 H 93 L 11/18/16 13:00 11/18/16 13:00 11/18/16 13:00 11/18/16 13:00 11/18/16 13:00 Intake and Output: 11/18/16 11/18/16 06:59 18:59 Intake Total 250 Output Total 130 Balance 120 - Medications Medications: Current Medications Calcitriol (Rocaltrol) 0.25 mcg PO F [facility] Last Admin: 11/18/16 10:28 Dose: 0.25 mcg Calcium Acetate (Phoslo) 667 mg PO TID [facility] Last Admin: 11/18/16 10:28 Dose: 667 mg Diltiazem HCl (Cardizem Cd) 120 mg PO DAILY [facility] Last Admin: 11/18/16 10:25 Dose: 120 mg Docusate Sodium (Colace) 100 mg PO BID [facility] Last Admin: 11/18/16 10:26 Dose: 100 mg Epoetin Justin (Procrit) 4,000 unit IV [facility] [place] Famotidine (Pepcid) 20 mg PO BID [facility] Last Admin: 11/18/16 10:27 Dose: 20 mg Sodium Chloride (Sodium Chloride 0.9%) 1,000 mls @ 100 mls/hr IV .Q10H [facility] Cefazolin Sodium 1 gm/ Sodium (Chloride) 100 mls @ 100 mls/hr IVPB Q12 [facility] Last Admin: 11/18/16 10:24 Dose: 100 mls/hr Lidocaine (Lidoderm) 1 ea TD DAILY PRN PRN Reason: Pain, Mild (1-3) Metoprolol Tartrate (Lopressor) 25 mg PO Q12 [facility] Last Admin: 11/18/16 10:27 Dose: 25 mg Morphine Sulfate (Morphine) 2 mg IVP Q4 PRN PRN Reason: Pain, severe (8-10) Last Admin: 11/17/16 21:12 Dose: 2 mg Oxycodone/Acetaminophen (Percocet 5/325 Mg Tab) 1 tab PO Q4 PRN PRN Reason: Pain, moderate (4-7) Stop: 11/20/16 11:21 Pantoprazole Sodium (Protonix Ec Tab) 20 mg PO DAILY [facility] Last Admin: 11/18/16 10:28 Dose: 20 mg Sennosides (Senokot Tab) 17.2 mg PO HS [facility] Last Admin: 11/17/16 22:00 Dose: 17.2 mg Sitagliptin Phosphate (Januvia) 25 mg PO DAILY [facility] Last Admin: 11/18/16 10:27 Dose: 25 mg Tamsulosin HCl (Flomax) 0.4 mg PO [facility] Last Admin: 11/18/16 00:25 Dose: 0.4 mg Vitamin B Complex/Vit C/Folic Acid (Nephro-Sia) 1 tab PO DAILY [facility] Last Admin: 11/18/16 10:27 Dose: 1 tab - Labs Labs: 11/18/16 06:25 11/17/16 08:00 PT 12.4 Seconds (9.8-13.1) 11/16/16 09:25 INR 1.1 (0.9-1.2) 11/16/16 09:25 APTT 30.9 Seconds (25.6-37.1) 11/16/16 09:25 - Constitutional Appears: Well, Non-toxic, No Acute Distress - Head Exam Head Exam: ATRAUMATIC, NORMAL INSPECTION, NORMOCEPHALIC - Eye Exam Eye Exam: EOMI, Normal appearance, PERRL Pupil Exam: NORMAL ACCOMODATION - ENT Exam ENT Exam: Mucous Membranes Moist - Neck Exam Neck Exam: Normal Inspection - Respiratory Exam Respiratory Exam: Clear to Ausculation Bilateral - Cardiovascular Exam Cardiovascular Exam: Irregular Rhythm - GI/Abdominal Exam GI & Abdominal Exam: Soft - Extremities Exam Additional comments: calves soft/NT,+2 pulses - Back Exam Additional comments: incision C/D/I,RAJ patent with serosanguinos drainage,binder patent - Neurological Exam Additional comments: ZULETA x 4 antigravity with good strength,sensation intact,no pelvis paresthesias - Psychiatric Exam Psychiatric exam: Normal Affect, Normal Mood - Skin Skin Exam: Dry, Intact Assessment and Plan - Assessment and Plan (Free Text) Assessment: 81 yo male with multiple medical problems which currently are stable,POD#1 Decompressive Lumbar Laminectomy L4-5/Neurologically stable Plan: keep RAJ one more day,continue PT/OOB/asst,continue abx,rehab planning,medical management per ,continue to monitor pt,all d/w Dr. Joseph agree's with plan
[2016-11-18 16:51] VITALS: RESP 16
[2016-11-18 20:23] VITALS: BP 121/65; PULSE 99; TEMP 99.2; O2SAT 98
== END 2016-11-18 20:30 | DRG 515 ==
LOC: H.ER 08:31 → H.ERHOLD 09:17 → H.MEDSURG1 10:54 → H.TEL 11-17 14:11
PROVIDERS: ADMIT Family Medicine; ATTEND Family Medicine
PROC: 5A1D00Z (ICD-10-PCS; 2016-11-17)
PROC: 01NB0ZZ Release Lumbar Nerve, Open Approach (ICD-10-PCS; principal; 2016-11-17 09:15)
DX: M51.16 Intervertebral disc disorders with radiculopathy, lumbar region (principal); N18.6 End stage renal disease; I12.0 Hypertensive chronic kidney disease with stage 5 chronic kidney disease or end stage renal disease; I42.9 Cardiomyopathy, unspecified; E11.22 Type 2 diabetes mellitus with diabetic chronic kidney disease; M47.26 Other spondylosis with radiculopathy, lumbar region; I48.0 Paroxysmal atrial fibrillation; D64.9 Anemia, unspecified; E78.5 Hyperlipidemia, unspecified; E78.00 Pure hypercholesterolemia, unspecified; Z99.2 Dependence on renal dialysis; Z87.891 Personal history of nicotine dependence; Z79.02 Long term (current) use of antithrombotics/antiplatelets; Z91.81 History of falling

== ENCOUNTER 2016-11-18 17:33 | Inpatient (IN) | payer MEDICARE ==
[2016-11-18] MEDS ORDERED: Lidocaine 5% Patch TD PRN (21:40)
[2016-11-18] MEDS: Oxycodone/Acetaminophen 5/325 mg Tab PO PRN (23:24)
[2016-11-19] MEDS: ceFAZolin 1 GM in Sodium Chloride 0.9% 100 ML IVPB SCH ×2 (06:45→17:00)
[2016-11-19] MEDS ORDERED: CEFAZOLIN 1 GM IV SCH (09:00)
[2016-11-19] MEDS ORDERED: [UNRECOGNIZED DRUG - OTHER] IV SCH (09:00)
[2016-11-19] MEDS: Pantoprazole 20 mg EC Tab PO SCH (09:07)
[2016-11-19] MEDS: Multivitamin Vitamin B Complex (Nephro-Vite) Tab PO SCH (09:07)
[2016-11-19] MEDS: diltiaZEM 120 mg/24 Hours CD Cap PO SCH (09:08)
--- NOTE | 2016-11-19 10:19 | CP.PCM.CON ---
History of Present Illness - History of Present Illness History of Present Illness: This patient who is 81 years of age male. Transferred from the floor for further rehabilitation. Patient known to me with end-stage renal disease on maintenance hemodialysis MWF. He had surgery and the lower back reported to be laminectomy see the detailed. And the rest of the past medical history and social history and review of system unremarkable as is stated on the admission and the HNP and a consultation from the floor With the previous cervical spine surgery also because of weakness of the upper extremity in the past Review of Systems - Constitutional Constitutional: As Per HPI - Cardiovascular Cardiovascular: absent: Chest Pain, Dyspnea, Leg Edema - Respiratory Respiratory: absent: Cough, Dyspnea, Chest Congestion - Gastrointestinal Gastrointestinal: absent: Abdominal Pain, Coffee Ground Emesis - Genitourinary Genitourinary: Nocturia - Musculoskeletal Musculoskeletal: Abnormal Gait - Neurological Neurological: absent: Abnormal Gait Past Patient History - Infectious Disease Hx of Infectious Diseases: None - Tetanus Immunizations Tetanus Immunization: Unknown - Past Medical History & Family History Past Medical History?: Yes - Past Social History Smoking Status: Former Smoker - CARDIAC Hx Cardiac Disorders: Yes Hx Atrial Fibrillation: Yes (Paroxysmal A-Fib (was maintained on Plavix)) Hx Hypercholesterolemia: Yes (Hyperlipidemia) Hx Hypertension: Yes Other/Comment: -- Cardiomyopathy - PULMONARY Hx Respiratory Disorders: No - NEUROLOGICAL Hx Neurological Disorder: Yes Other/Comment: -- Neuropathy - HEENT Hx HEENT Problems: No - RENAL Hx Chronic Kidney Disease: Yes Hx Dialysis: Yes (M-W-F) Type of Dialysis Access: Left Upper Arm AV Fistula Date of Last Dialysis Treatment: 11/18/16 Hx Renal Failure: Yes (CKD 5) - ENDOCRINE/METABOLIC Hx Endocrine Disorders: Yes Hx Diabetes Mellitus Type 2: Yes - HEMATOLOGICAL/ONCOLOGICAL Hx AIDS: No Hx Human Immunodeficiency Virus (HIV): No - INTEGUMENTARY Hx Dermatological Problems: No - MUSCULOSKELETAL/RHEUMATOLOGICAL Hx Falls: No - GASTROINTESTINAL Hx Gastrointestinal Disorders: Yes Hx Constipation: Yes - GENITOURINARY/GYNECOLOGICAL Hx Genitourinary Disorders: No - PSYCHIATRIC Hx Substance Use: No - SURGICAL HISTORY Hx Surgeries: Yes Other/Comment: 11/17/16: L4-L5 Laminectomy & Decompression. 2016: Cervical Laminectomy - ANESTHESIA Hx Anesthesia: Yes Hx Anesthesia Reactions: No Hx Malignant Hyperthermia: No Has any member of the family had a problem w/ anesthesia?: No Meds Allergies/Adverse Reactions: Allergies Allergy/AdvReac Type Severity Reaction Status Date / Time No Known Allergies Allergy Verified 11/18/16 20:59 - Medications Medications: Current Medications Calcitriol (Rocaltrol) 0.25 mcg PO MWF [facility] Calcium Acetate (Phoslo) 667 mg PO TID [facility] Last Admin: 11/19/16 09:05 Dose: 667 mg Diltiazem HCl (Cardizem Cd) 120 mg PO DAILY [facility] Last Admin: 11/19/16 09:08 Dose: 120 mg Docusate Sodium (Colace) 100 mg PO BID [facility] Last Admin: 11/19/16 09:06 Dose: 100 mg Epoetin Justin (Procrit) 4,000 unit IV [facility] [place] Famotidine (Pepcid) 20 mg PO BID [facility] Last Admin: 11/19/16 09:05 Dose: 20 mg Cefazolin Sodium 1 gm/ Sodium (Chloride) 100 mls @ 100 mls/hr IVPB Q12H [facility] Last Admin: 11/19/16 06:45 Dose: 100 mls/hr Metoprolol Tartrate (Lopressor) 25 mg PO Q12 [facility] Last Admin: 11/19/16 09:07 Dose: 25 mg Oxycodone/Acetaminophen (Percocet 5/325 Mg Tab) 1 tab PO Q4 PRN PRN Reason: .PAIN (1-10) Stop: 11/21/16 21:41 Last Admin: 11/18/16 23:24 Dose: 1 tab Pantoprazole Sodium (Protonix Ec Tab) 20 mg PO DAILY [facility] Last Admin: 11/19/16 09:07 Dose: 20 mg Sennosides (Senokot Tab) 17.2 mg PO [facility] Last Admin: 11/18/16 22:55 Dose: 17.2 mg Sitagliptin Phosphate (Januvia) 25 mg PO DAILY [facility] Last Admin: 11/19/16 09:05 Dose: 25 mg Tamsulosin HCl (Flomax) 0.4 mg PO [facility] Last Admin: 11/18/16 22:55 Dose: 0.4 mg Vitamin B Complex/Vit C/Folic Acid (Nephro-Sia) 1 tab PO DAILY [facility] Last Admin: 11/19/16 09:07 Dose: 1 tab Physical Exam - Constitutional Appears: No Acute Distress - ENT Exam ENT Exam: Mucous Membranes Moist - Respiratory Exam Respiratory Exam: NORMAL BREATHING PATTERN - Cardiovascular Exam Cardiovascular Exam: absent: JVD, Rubs - GI/Abdominal Exam GI & Abdominal Exam: Normal Bowel Sounds - Extremities Exam Extremities exam: Negative for: calf tenderness - Back Exam Back exam: absent: CVA tenderness (L), CVA tenderness (R) - Neurological Exam Neurological exam: Alert Results - Vital Signs Recent Vital Signs: Last Vital Signs Temp 98.2 F 11/19/16 08:28 Pulse 75 11/19/16 09:08 Resp 20 11/19/16 08:28 BP 150/74 11/19/16 09:08 Pulse Ox 96 11/19/16 08:28 - Labs Labs: Laboratory Results - last 24 hr 11/18/16 11/19/16 21:42 05:57 POC Glucose (mg/dL) 183 H 137 H Assessment & Plan (1) Back pain Status: Acute (2) Chronic kidney disease with end stage renal failure on dialysis Assessment and Plan: End stage renal disease on maintenance dialysis Wednesday with status post laminectomy on the lower back Patient transferred for acute rehabilitation Dialysis orders were given to continue. Status: Acute
--- NOTE | 2016-11-19 14:55 | CP.PCM.CON ---
History of Present Illness - History of Present Illness History of Present Illness: Dr Rodas PMR consultation on Mejia Briseno, born 1935, who has been admitted to [facility] again for acute inpatient rehabilitation. He had been here a few months ago following cervical surgery that in the end was quite successful. He initially presented with significant weakness in the L>R UE>LE. I had performed an emg/ncs and this revealed a cervical and lumbar radiculopathy and peripheral neuropathy. He had then been discharged to [facility] where in the end his recovery was very good. He had persistent LE radicular symptoms and now underwent a L4/5 laminectomy, again by Dr Joseph. Given his much higher pre-operative status following this surgery he is in very good spirits and already ambulating. Pain is vastly improved even within the first 48 hours post op Review of Systems - Constitutional Constitutional: absent: Anorexia, Chills - EENT Ears: absent: Ear Discharge, Tinnitus Nose/Mouth/Throat: absent: Nasal Congestion - Cardiovascular Cardiovascular: absent: Chest Pain - Respiratory Respiratory: absent: Dyspnea - Gastrointestinal Gastrointestinal: absent: Belching, Constipation - Musculoskeletal Musculoskeletal: absent: Back Pain - Integumentary Integumentary: absent: Unusual Bruising, Jaundice - Neurological Neurological: absent: Abnormal Movements, Focal Weakness, Lack of Coordination Past Patient History - Infectious Disease Hx of Infectious Diseases: None - Tetanus Immunizations Tetanus Immunization: Unknown - Past Medical History & Family History Past Medical History?: Yes - Past Social History Smoking Status: Former Smoker Alcohol: None Drugs: Denies Home Situation {Lives}: With Family - CARDIAC Hx Cardiac Disorders: Yes Hx Atrial Fibrillation: Yes (Paroxysmal A-Fib (was maintained on Plavix)) Hx Hypercholesterolemia: Yes (Hyperlipidemia) Hx Hypertension: Yes Other/Comment: -- Cardiomyopathy - PULMONARY Hx Respiratory Disorders: No - NEUROLOGICAL Hx Neurological Disorder: Yes Other/Comment: -- Neuropathy - HEENT Hx HEENT Problems: No - RENAL Hx Chronic Kidney Disease: Yes Hx Dialysis: Yes (M-W-F) Type of Dialysis Access: Left Upper Arm AV Fistula Date of Last Dialysis Treatment: 11/18/16 Hx Renal Failure: Yes (CKD 5) - ENDOCRINE/METABOLIC Hx Endocrine Disorders: Yes Hx Diabetes Mellitus Type 2: Yes - HEMATOLOGICAL/ONCOLOGICAL Hx AIDS: No Hx Human Immunodeficiency Virus (HIV): No - INTEGUMENTARY Hx Dermatological Problems: No - MUSCULOSKELETAL/RHEUMATOLOGICAL Hx Falls: No - GASTROINTESTINAL Hx Gastrointestinal Disorders: Yes Hx Constipation: Yes - GENITOURINARY/GYNECOLOGICAL Hx Genitourinary Disorders: No - PSYCHIATRIC Hx Substance Use: No - SURGICAL HISTORY Hx Surgeries: Yes Other/Comment: 11/17/16: L4-L5 Laminectomy & Decompression. 2016: Cervical Laminectomy - ANESTHESIA Hx Anesthesia: Yes Hx Anesthesia Reactions: No Hx Malignant Hyperthermia: No Has any member of the family had a problem w/ anesthesia?: No Meds Allergies/Adverse Reactions: Allergies Allergy/AdvReac Type Severity Reaction Status Date / Time No Known Allergies Allergy Verified 11/18/16 20:59 - Medications Medications: Current Medications Calcitriol (Rocaltrol) 0.25 mcg PO MWF [facility] Calcium Acetate (Phoslo) 667 mg PO TID [facility] Last Admin: 11/19/16 12:23 Dose: 667 mg Diltiazem HCl (Cardizem Cd) 120 mg PO DAILY [facility] Last Admin: 11/19/16 09:08 Dose: 120 mg Docusate Sodium (Colace) 100 mg PO BID [facility] Last Admin: 11/19/16 09:06 Dose: 100 mg Epoetin Justin (Procrit) 4,000 unit IV [facility] [place] Famotidine (Pepcid) 20 mg PO BID [facility] Last Admin: 11/19/16 09:05 Dose: 20 mg Cefazolin Sodium 1 gm/ Sodium (Chloride) 100 mls @ 100 mls/hr IVPB Q12H [facility] Last Admin: 11/19/16 06:45 Dose: 100 mls/hr Metoprolol Tartrate (Lopressor) 25 mg PO Q12 [facility] Last Admin: 11/19/16 09:07 Dose: 25 mg Oxycodone/Acetaminophen (Percocet 5/325 Mg Tab) 1 tab PO Q4 PRN PRN Reason: .PAIN (1-10) Stop: 11/21/16 21:41 Last Admin: 11/18/16 23:24 Dose: 1 tab Pantoprazole Sodium (Protonix Ec Tab) 20 mg PO DAILY [facility] Last Admin: 11/19/16 09:07 Dose: 20 mg Sennosides (Senokot Tab) 17.2 mg PO HS [facility] Last Admin: 11/18/16 22:55 Dose: 17.2 mg Sitagliptin Phosphate (Januvia) 25 mg PO DAILY [facility] Last Admin: 11/19/16 09:05 Dose: 25 mg Tamsulosin HCl (Flomax) 0.4 mg PO HS [facility] Last Admin: 11/18/16 22:55 Dose: 0.4 mg Vitamin B Complex/Vit C/Folic Acid (Nephro-Sia) 1 tab PO DAILY [facility] Last Admin: 11/19/16 09:07 Dose: 1 tab Physical Exam - Constitutional Appears: Well, Non-toxic, No Acute Distress - Head Exam Head Exam: ATRAUMATIC, NORMAL INSPECTION, NORMOCEPHALIC - Eye Exam Eye Exam: EOMI - ENT Exam ENT Exam: Mucous Membranes Moist - Respiratory Exam Respiratory Exam: NORMAL BREATHING PATTERN - Cardiovascular Exam Cardiovascular Exam: REGULAR RHYTHM - GI/Abdominal Exam GI & Abdominal Exam: Normal Bowel Sounds. absent: Distended - Extremities Exam Extremities exam: Negative for: calf tenderness, pedal edema - Neurological Exam Neurological exam: Alert, CN II-XII Intact, Oriented x3 - Psychiatric Exam Psychiatric exam: Normal Affect, Normal Mood Results - Vital Signs Recent Vital Signs: Last Vital Signs Temp 98.2 F 11/19/16 08:28 Pulse 82 11/19/16 13:52 Resp 20 11/19/16 08:28 BP 150/74 11/19/16 09:08 Pulse Ox 100 11/19/16 13:52 - Labs Labs: Laboratory Results - last 24 hr 11/18/16 11/19/16 11/19/16 21:42 05:57 11:54 POC Glucose (mg/dL) 183 H 137 H 177 H Assessment & Plan - Assessment and Plan (Free Text) Assessment: s/p lumbar L4/5 laminectomy with very good initial recovery already PT/OT to continue to help increase functional independence Team conference for d/c planning Pain: controlled Vascular: no evidence of DVT GI: No evidence of constipation or diarrhea Patient is an excellent acute rehabilitation candidate and will have focused pain management, wound care, PT, OT and recreational therapy to help facilitate a safe and appropriate d/c plan no focal strength deficits normal tone Plan: impairment code 04.130
--- NOTE | 2016-11-19 15:03 | CP.PCM.PN ---
Subjective - Date & Time of Evaluation Date of Evaluation: 11/19/16 Time of Evaluation: 15:02 - Subjective Subjective: lumbar laminectomy Objective - Vital Signs/Intake and Output Vital Signs (last 24 hours): Temp Pulse Resp BP Pulse Ox 98.2 F 82 20 150/74 100 11/19/16 08:28 11/19/16 13:52 11/19/16 08:28 11/19/16 09:08 11/19/16 13:52 Intake and Output: 11/19/16 11/19/16 06:59 18:59 Output Total 20 Balance -20 - Medications Medications: Current Medications Calcitriol (Rocaltrol) 0.25 mcg PO MWF [facility] Calcium Acetate (Phoslo) 667 mg PO TID [facility] Last Admin: 11/19/16 12:23 Dose: 667 mg Diltiazem HCl (Cardizem Cd) 120 mg PO DAILY [facility] Last Admin: 11/19/16 09:08 Dose: 120 mg Docusate Sodium (Colace) 100 mg PO BID [facility] Last Admin: 11/19/16 09:06 Dose: 100 mg Epoetin Justin (Procrit) 4,000 [place] [facility] [place]amotidine (Pepcid) 20 mg PO BID [facility] Last Admin: 11/19/16 09:05 Dose: 20 mg Cefazolin Sodium 1 gm/ Sodium (Chloride) 100 mls @ 100 mls/hr IVPB Q12H [facility] Last Admin: 11/19/16 06:45 Dose: 100 mls/hr Metoprolol Tartrate (Lopressor) 25 mg PO Q12 [facility] Last Admin: 11/19/16 09:07 Dose: 25 mg Oxycodone/Acetaminophen (Percocet 5/325 Mg Tab) 1 tab PO Q4 PRN PRN Reason: .PAIN (1-10) Stop: 11/21/16 21:41 Last Admin: 11/18/16 23:24 Dose: 1 tab Pantoprazole Sodium (Protonix Ec Tab) 20 mg PO DAILY [facility] Last Admin: 11/19/16 09:07 Dose: 20 mg Sennosides (Senokot Tab) 17.2 mg PO HS [facility] Last Admin: 11/18/16 22:55 Dose: 17.2 mg Sitagliptin Phosphate (Januvia) 25 mg PO DAILY [facility] Last Admin: 11/19/16 09:05 Dose: 25 mg Tamsulosin HCl (Flomax) 0.4 mg PO HS [facility] Last Admin: 11/18/16 22:55 Dose: 0.4 mg Vitamin B Complex/Vit C/Folic Acid (Nephro-Sia) 1 tab PO DAILY [facility] Last Admin: 11/19/16 09:07 Dose: 1 tab Physiatry Overall Plan of Care - Overall Plan of Care Estimated Length of Stay in Weeks: 1 Rehab Impairment: Mobility, Gait, Balance, Coordination Etiologic Diagnosis: Other (lumbar surgery) Rehab/Medical Prognosis: Good - Anticipated Interventions Physical Therapy:: Yes Occupational Therapy:: Yes Speech Therapy:: No Recreational Therapy:: Yes - Therapy Goals Bed Mobility: Supervision Ambulation: Supervision Functional Positional Changes:: Supervision - Discharge Plan Identification of Barriers to Discharge: Home Situation Discharge Destination: Home
[2016-11-20] MEDS: ceFAZolin 1 GM in Sodium Chloride 0.9% 100 ML IVPB SCH ×2 (05:49→17:16)
[2016-11-20] MEDS: Multivitamin Vitamin B Complex (Nephro-Vite) Tab PO SCH (08:47)
[2016-11-20] MEDS: diltiaZEM 120 mg/24 Hours CD Cap PO SCH (08:49)
[2016-11-20] MEDS: Pantoprazole 20 mg EC Tab PO SCH (08:49)
--- NOTE | 2016-11-20 10:18 | CP.PCM.PN ---
Subjective - Date & Time of Evaluation Date of Evaluation: 11/20/16 Time of Evaluation: 10:16 - Subjective Subjective: Patient is out of bed in the wheelchair He appeared to be feeling good and he is in good mood with his at the bedside No chest pain no shortness of breath Objective - Vital Signs/Intake and Output Vital Signs (last 24 hours): Temp Pulse Resp BP Pulse Ox 98.6 F 76 20 110/60 96 11/19/16 20:39 11/20/16 08:49 11/19/16 20:39 11/20/16 08:49 11/19/16 20:39 - Medications Medications: Current Medications Calcitriol (Rocaltrol) 0.25 mcg PO MWF [facility] Last Admin: 11/20/16 08:49 Dose: 0.25 mcg Calcium Acetate (Phoslo) 667 mg PO TID [facility] Last Admin: 11/20/16 08:48 Dose: 667 mg Diltiazem HCl (Cardizem Cd) 120 mg PO DAILY [facility] Last Admin: 11/20/16 08:49 Dose: 120 mg Docusate Sodium (Colace) 100 mg PO BID [facility] Last Admin: 11/20/16 08:47 Dose: 100 mg Epoetin Justin (Procrit) 4,000 unit IV [facility] [place] Famotidine (Pepcid) 20 mg PO BID [facility] Last Admin: 11/20/16 08:48 Dose: 20 mg Cefazolin Sodium 1 gm/ Sodium (Chloride) 100 mls @ 100 mls/hr IVPB Q12H [facility] Last Admin: 11/20/16 05:49 Dose: 100 mls/hr Metoprolol Tartrate (Lopressor) 25 mg PO Q12 [facility] Last Admin: 11/20/16 08:47 Dose: Not Given Oxycodone/Acetaminophen (Percocet 5/325 Mg Tab) 1 tab PO Q4 PRN PRN Reason: .PAIN (1-10) Stop: 11/21/16 21:41 Last Admin: 11/18/16 23:24 Dose: 1 tab Pantoprazole Sodium (Protonix Ec Tab) 20 mg PO DAILY [facility] Last Admin: 11/20/16 08:49 Dose: 20 mg Sennosides (Senokot Tab) 17.2 mg PO HS [facility] Last Admin: 11/19/16 21:59 Dose: 17.2 mg Sitagliptin Phosphate (Januvia) 25 mg PO DAILY [facility] Last Admin: 11/20/16 08:47 Dose: 25 mg Tamsulosin HCl (Flomax) 0.4 mg PO [facility] Last Admin: 11/19/16 21:59 Dose: 0.4 mg Vitamin B Complex/Vit C/Folic Acid (Nephro-Sia) 1 tab PO DAILY [facility] Last Admin: 11/20/16 08:47 Dose: 1 tab - Constitutional Appears: No Acute Distress - ENT Exam ENT Exam: Mucous Membranes Moist - Respiratory Exam Respiratory Exam: absent: Chest Wall Tenderness - Cardiovascular Exam Cardiovascular Exam: REGULAR RHYTHM. absent: Rubs - GI/Abdominal Exam GI & Abdominal Exam: Soft. absent: Guarding - Extremities Exam Extremities Exam: absent: Calf Tenderness - Back Exam Back Exam: absent: CVA tenderness (L), CVA tenderness (R) - Neurological Exam Neurological Exam: Alert Assessment and Plan (1) Back pain Status: Acute (2) Chronic kidney disease with end stage renal failure on dialysis Assessment & Plan: End stage renal disease with status post laminectomy on the lower back. About to have dialysis now order was given Potassium bath 2 mEq Sodium bath 138 Ultrafiltration 2000 mL EPO as ordered Continue dialysis MWF Status: Acute
--- NOTE | 2016-11-20 11:12 | CP.PCM.HP ---
<LandondonovanAnselmo tracey - Last Filed: 11/20/16 11:14> History of Present Illness - History of Present Illness History of Present Illness: 81 y/o male with PMHx remarkable for DM2, HTN, Grade 5 CKD, paroxysmal afib orginally admitted for intractable lower back pain. Noted to have multilevel lumbar disc disease. Conservative measures were started including pain medications and physical therapy. Symptoms worsened and affected patient gait and balance. Pt ended up having L4-L5 Laminectomy and has been admitted to acute rehab s/p laminectomy for PT treatment. Present on Admission - Present on Admission Any Indicators Present on Admission: No History of DVT/PE: No History of Uncontrolled Diabetes: Yes Urinary Catheter: No Decubitus Ulcer Present: No Review of Systems - Review of Systems All systems: reviewed and no additional remarkable complaints except - Constitutional Constitutional: As Per HPI Past Patient History - Infectious Disease Hx of Infectious Diseases: None - Tetanus Immunizations Tetanus Immunization: Unknown - Past Medical History & Family History Past Medical History?: Yes Past Family History: Reviewed and not pertinent - Past Social History Smoking Status: Former Smoker Alcohol: None Drugs: Denies Home Situation {Lives}: With Family - CARDIAC Hx Cardiac Disorders: Yes Hx Atrial Fibrillation: Yes (Paroxysmal A-Fib (was maintained on Plavix)) Hx Hypercholesterolemia: Yes (Hyperlipidemia) Hx Hypertension: Yes Other/Comment: -- Cardiomyopathy - PULMONARY Hx Respiratory Disorders: No - NEUROLOGICAL Hx Neurological Disorder: Yes Other/Comment: -- Neuropathy - HEENT Hx HEENT Problems: No - RENAL Hx Chronic Kidney Disease: Yes Hx Dialysis: Yes (M-W-F) Type of Dialysis Access: Left Upper Arm AV Fistula Date of Last Dialysis Treatment: 11/18/16 Hx Renal Failure: Yes (CKD 5) - ENDOCRINE/METABOLIC Hx Endocrine Disorders: Yes Hx Diabetes Mellitus Type 2: Yes - HEMATOLOGICAL/ONCOLOGICAL Hx AIDS: No Hx Human Immunodeficiency Virus (HIV): No - INTEGUMENTARY Hx Dermatological Problems: No - MUSCULOSKELETAL/RHEUMATOLOGICAL Hx Falls: No - GASTROINTESTINAL Hx Gastrointestinal Disorders: Yes Hx Constipation: Yes - GENITOURINARY/GYNECOLOGICAL Hx Genitourinary Disorders: No - PSYCHIATRIC Hx Substance Use: No - SURGICAL HISTORY Hx Surgeries: Yes Other/Comment: 11/17/16: L4-L5 Laminectomy & Decompression. 2016: Cervical Laminectomy - ANESTHESIA Hx Anesthesia: Yes Hx Anesthesia Reactions: No Hx Malignant Hyperthermia: No Has any member of the family had a problem w/ anesthesia?: No Meds Allergies/Adverse Reactions: Allergies Allergy/AdvReac Type Severity Reaction Status Date / Time No Known Allergies Allergy Verified 11/18/16 20:59 Physical Exam - Constitutional Appears: Well, Non-toxic, No Acute Distress - Head Exam Head Exam: ATRAUMATIC, NORMOCEPHALIC - Eye Exam Eye Exam: EOMI Pupil Exam: PERRL - ENT Exam ENT Exam: Mucous Membranes Moist - Respiratory Exam Respiratory Exam: Clear to Auscultation Bilateral, NORMAL BREATHING PATTERN. absent: Rales, Rhonchi, Wheezes - Cardiovascular Exam Cardiovascular Exam: REGULAR RHYTHM, RRR, +S1, +S2. absent: JVD, Rubs - GI/Abdominal Exam GI & Abdominal Exam: Normal Bowel Sounds, Soft. absent: Firm, Guarding, Rebound , Rigid, Tenderness - Extremities Exam Extremities exam: Positive for: normal inspection, pedal pulses present. Negative for: calf tenderness, pedal edema - Back Exam Back exam: absent: CVA tenderness (L), CVA tenderness (R) Additional comments: s/p L4-L5 laminectomy, drain inserted. Minor tenderness. - Neurological Exam Neurological exam: Alert, CN II-XII Intact, Oriented x3 - Psychiatric Exam Psychiatric exam: Normal Affect, Normal Mood Results - Vital Signs Recent Vital Signs: Last Vital Signs Temp 98.1 F 11/20/16 10:00 Pulse 76 11/20/16 10:00 Resp 20 11/20/16 10:00 BP 110/60 11/20/16 10:00 Pulse Ox 98 11/20/16 10:00 - Labs Labs: Laboratory Results - last 24 hr 11/19/16 11/19/16 11/19/16 11:54 16:05 21:01 POC Glucose (mg/dL) 177 H 184 H 145 H 11/20/16 05:17 POC Glucose (mg/dL) 129 H Assessment & Plan (1) S/P laminectomy Assessment and Plan: pain control PT rehabilitation Status: Acute Priority: Medium (2) Diabetes mellitus type 2 in nonobese Assessment and Plan: c/w home meds Status: Chronic (3) CKD (chronic kidney disease) stage 5, GFR less than 15 ml/min Assessment and Plan: being followed by Dr. Kike BARNEY Q Wednesday, Wednesday, Wednesday Status: Chronic (4) Hypertension Assessment and Plan: c/w home meds Status: Chronic (5) Paroxysmal atrial fibrillation Assessment and Plan: c/w home meds Status: Chronic <AkbarJorge Luis Ady - Last Filed: 11/22/16 10:43> Results - Vital Signs Recent Vital Signs: Last Vital Signs Temp 97.3 F L 11/22/16 07:54 Pulse 85 11/22/16 08:42 Resp 20 11/22/16 07:54 BP 156/78 H 11/22/16 08:42 Pulse Ox 100 11/22/16 07:54 - Labs Result Diagrams: 11/22/16 05:30 11/22/16 05:30 Labs: Laboratory Results - last 24 hr 11/21/16 11/21/16 11/21/16 11:04 16:39 20:54 WBC RBC Hgb Hct MCV MCH MCHC RDW Plt Count Sodium Potassium Chloride Carbon Dioxide Anion Gap BUN Creatinine Est GFR ( Amer) Est GFR (Non-Af Amer) POC Glucose (mg/dL) 164 H 173 H 138 H Random Glucose Calcium Total Bilirubin AST ALT Alkaline Phosphatase Total Protein Albumin Globulin Albumin/Globulin Ratio 11/22/16 11/22/16 11/22/16 05:30 05:30 06:03 WBC 4.1 L RBC 3.18 L Hgb 9.3 L Hct 29.2 L MCV 91.8 MCH 29.3 MCHC 31.9 L RDW 15.9 H Plt Count 163 Sodium 136 Potassium 3.7 Chloride 95 L Carbon Dioxide 32 H Anion Gap 13 BUN 30 H Creatinine 5.9 H Est GFR ( Amer) 11 Est GFR (Non-Af Amer) 9 POC Glucose (mg/dL) 127 H Random Glucose 114 H Calcium 8.5 Total Bilirubin 0.4 AST 27 ALT 12 L D Alkaline Phosphatase 57 Total Protein 6.7 Albumin 3.6 Globulin 3.1 Albumin/Globulin Ratio 1.1 Assessment & Plan - Assessment and Plan (Free Text) Plan: I was present during evaluation and discussed with Dr Lam re plans of care and rehab . Jorge Luis Webber M.D.
[2016-11-20] MEDS: Epoetin Alfa 4000 UNIT/ML Inj IV SCH ×2 (21:19→21:20)
[2016-11-20] MEDS: Oxycodone/Acetaminophen 5/325 mg Tab PO PRN (23:29)
[2016-11-21] MEDS: ceFAZolin 1 GM in Sodium Chloride 0.9% 100 ML IVPB SCH ×2 (05:30→17:20)
[2016-11-21] MEDS: diltiaZEM 120 mg/24 Hours CD Cap PO SCH (08:50)
[2016-11-21] MEDS: Multivitamin Vitamin B Complex (Nephro-Vite) Tab PO SCH (08:50)
[2016-11-21] MEDS: Pantoprazole 20 mg EC Tab PO SCH (08:50)
--- NOTE | 2016-11-21 13:49 | CP.PCM.PN ---
Subjective - Date & Time of Evaluation Date of Evaluation: 11/21/16 Time of Evaluation: 02:00 - Subjective Subjective: Comfortable in bed Objective - Vital Signs/Intake and Output Vital Signs (last 24 hours): Temp Pulse Resp BP Pulse Ox 97.2 F L 83 22 143/64 100 11/21/16 07:45 11/21/16 08:53 11/21/16 07:45 11/21/16 08:53 11/21/16 07:45 - Medications Medications: Current Medications Calcitriol (Rocaltrol) 0.25 mcg PO MWF [facility] Last Admin: 11/20/16 08:49 Dose: 0.25 mcg Calcium Acetate (Phoslo) 667 mg PO TID [facility] Last Admin: 11/21/16 12:20 Dose: 667 mg Diltiazem HCl (Cardizem Cd) 120 mg PO DAILY [facility] Last Admin: 11/21/16 08:50 Dose: 120 mg Docusate Sodium (Colace) 100 mg PO BID [facility] Last Admin: 11/21/16 08:49 Dose: 100 mg Epoetin Justin (Procrit) 4,000 unit IV MWF [facility] Last Admin: 11/20/16 21:20 Dose: 4,000 unit Famotidine (Pepcid) 20 mg PO BID [facility] Last Admin: 11/21/16 08:50 Dose: 20 mg Home Med (Patient's Own Medication) 1 unit PO DAILY [facility] Cefazolin Sodium 1 gm/ Sodium (Chloride) 100 mls @ 100 mls/hr IVPB Q12H [facility] Last Admin: 11/21/16 05:30 Dose: 100 mls/hr Lactulose (Enulose) 20 gm PO DAILY PRN PRN Reason: Constipation Last Admin: 11/21/16 09:32 Dose: 20 gm Metoprolol Tartrate (Lopressor) 25 mg PO Q12 [facility] Last Admin: 11/21/16 08:53 Dose: 25 mg Oxycodone/Acetaminophen (Percocet 5/325 Mg Tab) 1 tab PO Q4 PRN PRN Reason: .PAIN (1-10) Stop: 11/21/16 21:41 Last Admin: 11/20/16 23:29 Dose: 1 tab Pantoprazole Sodium (Protonix Ec Tab) 20 mg PO DAILY [facility] Last Admin: 11/21/16 08:50 Dose: 20 mg Sennosides (Senokot Tab) 17.2 mg PO HS [facility] Last Admin: 11/20/16 23:30 Dose: Not Given Sitagliptin Phosphate (Januvia) 25 mg PO DAILY [facility] Last Admin: 11/21/16 08:49 Dose: 25 mg Tamsulosin HCl (Flomax) 0.4 mg PO HS [facility] Last Admin: 11/20/16 23:28 Dose: 0.4 mg Vitamin B Complex/Vit C/Folic Acid (Nephro-Sia) 1 tab PO DAILY [facility] Last Admin: 11/21/16 08:50 Dose: 1 tab Zolpidem Tartrate (Ambien) 5 mg PO HS PRN PRN Reason: Insomnia - Respiratory Exam Additional comments: Lungs clear - Cardiovascular Exam Cardiovascular Exam: REGULAR RHYTHM - Extremities Exam Additional comments: No edema Assessment and Plan - Assessment and Plan (Free Text) Assessment: ESRD on HD S/P lumbar laminectomy HTN Plan: For dialysis today Labs ordered
[2016-11-21] MEDS: LINZESS 145 MCG PO SCH (16:28)
[2016-11-22] MEDS: ceFAZolin 1 GM in Sodium Chloride 0.9% 100 ML IVPB SCH ×2 (05:01→17:10)
[2016-11-22 07:54] LABS: HEMOGLOBIN 9.3 g/dL (12.0-18.0); MEAN CELL VOLUME 91.8 fl (80.0-94.0); MEAN CORPUSCULAR HEMOGLOBIN 29.3 pg (27.0-31.0); MEAN CORPUSCULAR HGB CONC 31.9 g/dL (33.0-37.0); RBC 3.18 Mil/uL (4.40-5.90); RED CELL DISTRIBUTION WIDTH 15.9 % (11.5-14.5); WHITE BLOOD COUNT 4.1 K/uL (4.8-10.8)
[2016-11-22 08:17] LABS: ALBUMIN 3.6 g/dL (3.5-5.0)
[2016-11-22 08:20] LABS: ALB/GLOB RATIO 1.1 (1.0-2.1); CALCIUM 8.5 mg/dL (8.4-10.2)
[2016-11-22] MEDS: LINZESS 145 MCG PO SCH (08:40)
[2016-11-22] MEDS: Multivitamin Vitamin B Complex (Nephro-Vite) Tab PO SCH (08:41)
[2016-11-22] MEDS: Pantoprazole 20 mg EC Tab PO SCH (08:42)
[2016-11-22] MEDS: diltiaZEM 120 mg/24 Hours CD Cap PO SCH (08:42)
--- NOTE | 2016-11-22 11:20 | CP.PCM.PN ---
Subjective - Date & Time of Evaluation Date of Evaluation: 11/21/16 Time of Evaluation: 09:35 - Subjective Subjective: Patient is doing a lot better Still with a lot of constipation Has no chest pain or SOB Afebrile Objective - Vital Signs/Intake and Output Vital Signs (last 24 hours): Temp Pulse Resp BP Pulse Ox 97.3 F L 85 20 156/78 H 100 11/22/16 07:54 11/22/16 08:42 11/22/16 07:54 11/22/16 08:42 11/22/16 07:54 - Medications Medications: Current Medications Calcitriol (Rocaltrol) 0.25 mcg PO MWF [facility] Last Admin: 11/20/16 08:49 Dose: 0.25 mcg Calcium Acetate (Phoslo) 667 mg PO TID [facility] Last Admin: 11/22/16 08:41 Dose: 667 mg Diltiazem HCl (Cardizem Cd) 120 mg PO DAILY [facility] Last Admin: 11/22/16 08:42 Dose: 120 mg Docusate Sodium (Colace) 100 mg PO BID [facility] Last Admin: 11/22/16 08:41 Dose: 100 mg Epoetin Justin (Procrit) 4,000 unit IV MWF [facility] Last Admin: 11/20/16 21:20 Dose: 4,000 unit Famotidine (Pepcid) 20 mg PO BID [facility] Last Admin: 11/22/16 08:42 Dose: 20 mg Home Med (Patient's Own Medication) 1 unit PO DAILY [facility] Last Admin: 11/22/16 08:40 Dose: 1 unit Cefazolin Sodium 1 gm/ Sodium (Chloride) 100 mls @ 100 mls/hr IVPB Q12H [facility] Last Admin: 11/22/16 05:01 Dose: 100 mls/hr Lactulose (Enulose) 20 gm PO DAILY PRN PRN Reason: Constipation Last Admin: 11/22/16 09:49 Dose: 20 gm Metoprolol Tartrate (Lopressor) 25 mg PO Q12 [facility] Last Admin: 11/22/16 08:41 Dose: 25 mg Pantoprazole Sodium (Protonix Ec Tab) 20 mg PO DAILY [facility] Last Admin: 11/22/16 08:42 Dose: 20 mg Sennosides (Senokot Tab) 17.2 mg PO HS [facility] Last Admin: 11/21/16 21:16 Dose: 17.2 mg Sitagliptin Phosphate (Januvia) 25 mg PO DAILY [facility] Last Admin: 11/22/16 08:41 Dose: 25 mg Tamsulosin HCl (Flomax) 0.4 mg PO HS [facility] Last Admin: 11/21/16 21:16 Dose: 0.4 mg Vitamin B Complex/Vit C/Folic Acid (Nephro-Sia) 1 tab PO DAILY [facility] Last Admin: 11/22/16 08:41 Dose: 1 tab Zolpidem Tartrate (Ambien) 5 mg PO HS PRN PRN Reason: Insomnia - Labs Labs: 11/22/16 05:30 11/22/16 05:30 - Head Exam Head Exam: NORMAL INSPECTION - Eye Exam Eye Exam: Normal appearance - Respiratory Exam Respiratory Exam: Clear to Ausculation Bilateral - Cardiovascular Exam Cardiovascular Exam: REGULAR RHYTHM - GI/Abdominal Exam GI & Abdominal Exam: Normal Bowel Sounds - Neurological Exam Neurological Exam: CN II-XII Intact, Oriented x3 - Psychiatric Exam Psychiatric exam: Normal Mood Assessment and Plan (1) S/P lumbar laminectomy Status: Acute (2) Lumbar back pain with radiculopathy affecting left lower extremity Status: Acute (3) CKD (chronic kidney disease) stage 5, GFR less than 15 ml/min Status: Chronic (4) Diabetes mellitus type 2 in nonobese Status: Chronic (5) Hyperlipidemia Status: Chronic (6) Hypertension Status: Chronic (7) Paroxysmal atrial fibrillation Status: Chronic - Assessment and Plan (Free Text) Assessment: contmeds cont PT Pain meds Movantik or linzess lactulose
--- NOTE | 2016-11-22 11:23 | CP.PCM.PN ---
Subjective - Date & Time of Evaluation Date of Evaluation: 11/20/16 Time of Evaluation: 10:00 - Subjective Subjective: Patient feels a lot better. Has no chest pain or SOB. Afebrile. Has minimal pain in the lower back. Objective - Vital Signs/Intake and Output Vital Signs (last 24 hours): Temp Pulse Resp BP Pulse Ox 97.3 F L 85 20 156/78 H 100 11/22/16 07:54 11/22/16 08:42 11/22/16 07:54 11/22/16 08:42 11/22/16 07:54 - Medications Medications: Current Medications Calcitriol (Rocaltrol) 0.25 mcg PO MWF [facility] Last Admin: 11/20/16 08:49 Dose: 0.25 mcg Calcium Acetate (Phoslo) 667 mg PO TID [facility] Last Admin: 11/22/16 08:41 Dose: 667 mg Diltiazem HCl (Cardizem Cd) 120 mg PO DAILY [facility] Last Admin: 11/22/16 08:42 Dose: 120 mg Docusate Sodium (Colace) 100 mg PO BID [facility] Last Admin: 11/22/16 08:41 Dose: 100 mg Epoetin Justin (Procrit) 4,000 unit IV MWF [facility] Last Admin: 11/20/16 21:20 Dose: 4,000 unit Famotidine (Pepcid) 20 mg PO BID [facility] Last Admin: 11/22/16 08:42 Dose: 20 mg Home Med (Patient's Own Medication) 1 unit PO DAILY [facility] Last Admin: 11/22/16 08:40 Dose: 1 unit Cefazolin Sodium 1 gm/ Sodium (Chloride) 100 mls @ 100 mls/hr IVPB Q12H [facility] Last Admin: 11/22/16 05:01 Dose: 100 mls/hr Lactulose (Enulose) 20 gm PO DAILY PRN PRN Reason: Constipation Last Admin: 11/22/16 09:49 Dose: 20 gm Metoprolol Tartrate (Lopressor) 25 mg PO Q12 [facility] Last Admin: 11/22/16 08:41 Dose: 25 mg Pantoprazole Sodium (Protonix Ec Tab) 20 mg PO DAILY [facility] Last Admin: 11/22/16 08:42 Dose: 20 mg Sennosides (Senokot Tab) 17.2 mg PO HS [facility] Last Admin: 11/21/16 21:16 Dose: 17.2 mg Sitagliptin Phosphate (Januvia) 25 mg PO DAILY [facility] Last Admin: 11/22/16 08:41 Dose: 25 mg Tamsulosin HCl (Flomax) 0.4 mg PO HS [facility] Last Admin: 11/21/16 21:16 Dose: 0.4 mg Vitamin B Complex/Vit C/Folic Acid (Nephro-Sia) 1 tab PO DAILY [facility] Last Admin: 11/22/16 08:41 Dose: 1 tab Zolpidem Tartrate (Ambien) 5 mg PO HS PRN PRN Reason: Insomnia - Labs Labs: 11/22/16 05:30 11/22/16 05:30 - Head Exam Head Exam: NORMAL INSPECTION - Eye Exam Eye Exam: Normal appearance - Neck Exam Neck Exam: Normal Inspection - Respiratory Exam Respiratory Exam: Clear to Ausculation Bilateral - Cardiovascular Exam Cardiovascular Exam: REGULAR RHYTHM - GI/Abdominal Exam GI & Abdominal Exam: Normal Bowel Sounds - Neurological Exam Neurological Exam: CN II-XII Intact, Oriented x3 - Psychiatric Exam Psychiatric exam: Normal Mood Assessment and Plan (1) Lumbar back pain with radiculopathy affecting left lower extremity Status: Acute (2) CKD (chronic kidney disease) stage 5, GFR less than 15 ml/min Status: Chronic (3) Diabetes mellitus type 2 in nonobese Status: Chronic (4) Hyperlipidemia Status: Chronic (5) Hypertension Status: Chronic (6) Paroxysmal atrial fibrillation Status: Chronic - Assessment and Plan (Free Text) Plan: Cont meds Cont PT pin meds stool softener. Cont tx
--- NOTE | 2016-11-22 23:57 | CP.PCM.PN ---
Subjective - Date & Time of Evaluation Date of Evaluation: 11/22/16 Time of Evaluation: 20:20 - Subjective Subjective: Patient remains stable Able to have bm On stool softener. Has minimal back pains. Doing well with PT. Objective - Vital Signs/Intake and Output Vital Signs (last 24 hours): Temp Pulse Resp BP Pulse Ox 98.1 F 84 20 135/75 99 11/22/16 20:30 11/22/16 21:24 11/22/16 20:30 11/22/16 21:24 11/22/16 20:30 Intake and Output: 11/22/16 11/23/16 18:59 06:59 Intake Total 110 Balance 110 - Medications Medications: Current Medications Calcitriol (Rocaltrol) 0.25 mcg PO MWF [facility] Last Admin: 11/20/16 08:49 Dose: 0.25 mcg Calcium Acetate (Phoslo) 667 mg PO TID [facility] Last Admin: 11/22/16 17:11 Dose: 667 mg Diltiazem HCl (Cardizem Cd) 120 mg PO DAILY [facility] Last Admin: 11/22/16 08:42 Dose: 120 mg Docusate Sodium (Colace) 100 mg PO BID [facility] Last Admin: 11/22/16 17:11 Dose: 100 mg Epoetin Justin (Procrit) 4,000 unit IV MWF [facility] Last Admin: 11/20/16 21:20 Dose: 4,000 unit Famotidine (Pepcid) 20 mg PO BID [facility] Last Admin: 11/22/16 17:11 Dose: 20 mg Home Med (Patient's Own Medication) 1 unit PO DAILY [facility] Last Admin: 11/22/16 08:40 Dose: 1 unit Lactulose (Enulose) 20 gm PO DAILY PRN PRN Reason: Constipation Last Admin: 11/22/16 09:49 Dose: 20 gm Metoprolol Tartrate (Lopressor) 25 mg PO Q12 [facility] Last Admin: 11/22/16 21:24 Dose: 25 mg Pantoprazole Sodium (Protonix Ec Tab) 20 mg PO DAILY [facility] Last Admin: 11/22/16 08:42 Dose: 20 mg Sennosides (Senokot Tab) 17.2 mg PO HS [facility] Last Admin: 11/22/16 21:23 Dose: 17.2 mg Sitagliptin Phosphate (Januvia) 25 mg PO DAILY [facility] Last Admin: 11/22/16 08:41 Dose: 25 mg Tamsulosin HCl (Flomax) 0.4 mg PO HS [facility] Last Admin: 11/22/16 21:24 Dose: 0.4 mg Vitamin B Complex/Vit C/Folic Acid (Nephro-Sia) 1 tab PO DAILY [facility] Last Admin: 11/22/16 08:41 Dose: 1 tab Zolpidem Tartrate (Ambien) 5 mg PO HS PRN PRN Reason: Insomnia Stop: 11/26/16 22:00 - Labs Labs: 11/22/16 05:30 11/22/16 05:30 - Head Exam Head Exam: NORMAL INSPECTION - Eye Exam Eye Exam: Normal appearance - ENT Exam ENT Exam: Mucous Membranes Moist - Respiratory Exam Respiratory Exam: Clear to Ausculation Bilateral - Cardiovascular Exam Cardiovascular Exam: REGULAR RHYTHM - GI/Abdominal Exam GI & Abdominal Exam: Normal Bowel Sounds - Neurological Exam Neurological Exam: CN II-XII Intact, Oriented x3 - Psychiatric Exam Psychiatric exam: Normal Mood Assessment and Plan (1) S/P lumbar laminectomy Status: Acute (2) Lumbar back pain with radiculopathy affecting left lower extremity Status: Acute (3) CKD (chronic kidney disease) stage 5, GFR less than 15 ml/min Status: Chronic (4) Diabetes mellitus type 2 in nonobese Status: Chronic (5) Hyperlipidemia Status: Chronic (6) Hypertension Status: Chronic (7) Paroxysmal atrial fibrillation Status: Chronic - Assessment and Plan (Free Text) Plan: Cont meds Cont tx Cont PT
--- NOTE | 2016-11-23 09:09 | CP.PCM.PN ---
Subjective - Date & Time of Evaluation Date of Evaluation: 11/23/16 Time of Evaluation: 09:08 - Subjective Subjective: Patient is out of bed Patient feeling good No nausea no vomiting Appetite is good Objective - Vital Signs/Intake and Output Vital Signs (last 24 hours): Temp Pulse Resp BP Pulse Ox 97.9 F 85 20 143/71 100 11/23/16 08:44 11/23/16 08:44 11/23/16 08:44 11/23/16 08:44 11/23/16 08:44 - Medications Medications: Current Medications Calcitriol (Rocaltrol) 0.25 mcg PO MWF [facility] Last Admin: 11/20/16 08:49 Dose: 0.25 mcg Calcium Acetate (Phoslo) 667 mg PO TID [facility] Last Admin: 11/22/16 17:11 Dose: 667 mg Diltiazem HCl (Cardizem Cd) 120 mg PO DAILY [facility] Last Admin: 11/22/16 08:42 Dose: 120 mg Docusate Sodium (Colace) 100 mg PO BID [facility] Last Admin: 11/22/16 17:11 Dose: 100 mg Epoetin Justin (Procrit) 4,000 unit IV MWF [facility] Last Admin: 11/20/16 21:20 Dose: 4,000 unit Famotidine (Pepcid) 20 mg PO BID [facility] Last Admin: 11/22/16 17:11 Dose: 20 mg Home Med (Patient's Own Medication) 1 unit PO DAILY [facility] Last Admin: 11/22/16 08:40 Dose: 1 unit Lactulose (Enulose) 20 gm PO DAILY PRN PRN Reason: Constipation Last Admin: 11/22/16 09:49 Dose: 20 gm Metoprolol Tartrate (Lopressor) 25 mg PO Q12 [facility] Last Admin: 11/22/16 21:24 Dose: 25 mg Pantoprazole Sodium (Protonix Ec Tab) 20 mg PO DAILY [facility] Last Admin: 11/22/16 08:42 Dose: 20 mg Sennosides (Senokot Tab) 17.2 mg PO [facility] Last Admin: 11/22/16 21:23 Dose: 17.2 mg Sitagliptin Phosphate (Januvia) 25 mg PO DAILY [facility] Last Admin: 11/22/16 08:41 Dose: 25 mg Tamsulosin HCl (Flomax) 0.4 mg PO [facility] Last Admin: 11/22/16 21:24 Dose: 0.4 mg Vitamin B Complex/Vit C/Folic Acid (Nephro-Sia) 1 tab PO DAILY [facility] Last Admin: 11/22/16 08:41 Dose: 1 tab Zolpidem Tartrate (Ambien) 5 mg PO HS PRN PRN Reason: Insomnia Stop: 11/26/16 22:00 - Labs Labs: 11/22/16 05:30 11/22/16 05:30 - Constitutional Appears: No Acute Distress - ENT Exam ENT Exam: Mucous Membranes Moist - Respiratory Exam Respiratory Exam: absent: Chest Wall Tenderness - Cardiovascular Exam Cardiovascular Exam: REGULAR RHYTHM. absent: JVD, Rubs - GI/Abdominal Exam GI & Abdominal Exam: Normal Bowel Sounds - Extremities Exam Extremities Exam: absent: Calf Tenderness - Back Exam Back Exam: absent: CVA tenderness (L), CVA tenderness (R) - Neurological Exam Neurological Exam: Alert Assessment and Plan (1) Back pain Status: Acute (2) Chronic kidney disease with end stage renal failure on dialysis Assessment & Plan: End stage renal disease patient about to have dialysis as soon as he completed the PT Vital sign has been stable Ultrafiltration 2000 mL Sodium bath 138 Bicarbonate 34 And potassium 2 mEq Continue hemodialysis as scheduled MWF Status post lumbar laminectomy Status: Acute
[2016-11-23] MEDS: diltiaZEM 120 mg/24 Hours CD Cap PO SCH (09:19)
[2016-11-23] MEDS: LINZESS 145 MCG PO SCH (09:20)
[2016-11-23] MEDS: Multivitamin Vitamin B Complex (Nephro-Vite) Tab PO SCH (09:20)
[2016-11-23] MEDS: Pantoprazole 20 mg EC Tab PO SCH (09:21)
[2016-11-23] MEDS: Epoetin Alfa 4000 UNIT/ML Inj IV SCH (16:46)
[2016-11-24] MEDS: diltiaZEM 120 mg/24 Hours CD Cap PO SCH (09:22)
[2016-11-24] MEDS: Multivitamin Vitamin B Complex (Nephro-Vite) Tab PO SCH (09:23)
[2016-11-24] MEDS: Megestrol Acetate 40 mg/ml Cup PO SCH (09:23)
[2016-11-24] MEDS: Pantoprazole 20 mg EC Tab PO SCH (09:24)
[2016-11-24] MEDS: LINZESS 145 MCG PO SCH (09:24)
--- NOTE | 2016-11-24 09:25 | CP.PCM.PN ---
Subjective - Date & Time of Evaluation Date of Evaluation: 11/23/16 Time of Evaluation: 09:15 - Subjective Subjective: Patient is doing well Has minimal back pain Ding well with PT. Objective - Vital Signs/Intake and Output Vital Signs (last 24 hours): Temp Pulse Resp BP Pulse Ox 97.5 F L 79 20 141/65 99 11/24/16 09:04 11/24/16 09:23 11/24/16 09:04 11/24/16 09:23 11/24/16 09:04 - Medications Medications: Current Medications Calcitriol (Rocaltrol) 0.25 mcg PO MWF [facility] Last Admin: 11/23/16 09:21 Dose: 0.25 mcg Calcium Acetate (Phoslo) 667 mg PO TID [facility] Last Admin: 11/24/16 09:24 Dose: 667 mg Diltiazem HCl (Cardizem Cd) 120 mg PO DAILY [facility] Last Admin: 11/24/16 09:22 Dose: 120 mg Docusate Sodium (Colace) 100 mg PO BID [facility] Last Admin: 11/24/16 09:22 Dose: 100 mg Epoetin Justin (Procrit) 4,000 unit IV MWF [facility] Last Admin: 11/23/16 16:46 Dose: 4,000 unit Famotidine (Pepcid) 20 mg PO BID [facility] Last Admin: 11/24/16 09:24 Dose: 20 mg Home Med (Patient's Own Medication) 1 unit PO DAILY [facility] Last Admin: 11/24/16 09:24 Dose: 1 unit Lactulose (Enulose) 20 gm PO DAILY PRN PRN Reason: Constipation Last Admin: 11/22/16 09:49 Dose: 20 gm Megestrol Acetate (Megace) 800 mg PO DAILY [facility] Last Admin: 11/24/16 09:23 Dose: 800 mg Metoprolol Tartrate (Lopressor) 25 mg PO Q12 [facility] Last Admin: 11/24/16 09:23 Dose: 25 mg Pantoprazole Sodium (Protonix Ec Tab) 20 mg PO DAILY [facility] Last Admin: 11/24/16 09:24 Dose: 20 mg Sennosides (Senokot Tab) 17.2 mg PO HS [facility] Last Admin: 11/23/16 21:20 Dose: Not Given Sitagliptin Phosphate (Januvia) 25 mg PO DAILY [facility] Last Admin: 11/24/16 09:23 Dose: 25 mg Tamsulosin HCl (Flomax) 0.4 mg PO HS [facility] Last Admin: 11/23/16 21:19 Dose: 0.4 mg Vitamin B Complex/Vit C/Folic Acid (Nephro-Sia) 1 tab PO DAILY [facility] Last Admin: 11/24/16 09:23 Dose: 1 tab Zolpidem Tartrate (Ambien) 5 mg PO HS PRN PRN Reason: Insomnia Stop: 11/26/16 22:00 - Labs Labs: 11/22/16 05:30 11/22/16 05:30 - Head Exam Head Exam: NORMAL INSPECTION - Eye Exam Eye Exam: Normal appearance - ENT Exam ENT Exam: Mucous Membranes Moist - Respiratory Exam Respiratory Exam: Clear to Ausculation Bilateral - Cardiovascular Exam Cardiovascular Exam: REGULAR RHYTHM - GI/Abdominal Exam GI & Abdominal Exam: Normal Bowel Sounds - Neurological Exam Neurological Exam: Awake, Oriented x3 Assessment and Plan (1) S/P lumbar laminectomy Status: Acute (2) Lumbar back pain with radiculopathy affecting left lower extremity Status: Acute (3) CKD (chronic kidney disease) stage 5, GFR less than 15 ml/min Status: Chronic (4) Diabetes mellitus type 2 in nonobese Status: Chronic (5) Hyperlipidemia Status: Chronic (6) Hypertension Status: Chronic (7) Paroxysmal atrial fibrillation Status: Chronic - Assessment and Plan (Free Text) Plan: Cont meds Cont tx Cont PT
--- NOTE | 2016-11-24 12:50 | CP.PCM.PN ---
Subjective - Date & Time of Evaluation Date of Evaluation: 11/24/16 Time of Evaluation: 10:50 - Subjective Subjective: Appears comfortable in bed Still hs some low back pain, No other complaints Objective - Vital Signs/Intake and Output Vital Signs (last 24 hours): Temp Pulse Resp BP Pulse Ox 97.5 F L 79 20 141/65 99 11/24/16 09:04 11/24/16 09:23 11/24/16 09:04 11/24/16 09:23 11/24/16 09:04 - Medications Medications: Current Medications Acetaminophen (Tylenol 325mg Tab) 650 mg PO Q4 PRN PRN Reason: Pain 1-10 Last Admin: 11/24/16 12:16 Dose: 650 mg Calcitriol (Rocaltrol) 0.25 mcg PO MWF [facility] Last Admin: 11/23/16 09:21 Dose: 0.25 mcg Calcium Acetate (Phoslo) 667 mg PO TID [facility] Last Admin: 11/24/16 12:16 Dose: 667 mg Diltiazem HCl (Cardizem Cd) 120 mg PO DAILY [facility] Last Admin: 11/24/16 09:22 Dose: 120 mg Docusate Sodium (Colace) 100 mg PO BID [facility] Last Admin: 11/24/16 09:22 Dose: 100 mg Epoetin Justin (Procrit) 4,000 unit IV MWF [facility] Last Admin: 11/23/16 16:46 Dose: 4,000 unit Famotidine (Pepcid) 20 mg PO BID [facility] Last Admin: 11/24/16 09:24 Dose: 20 mg Home Med (Patient's Own Medication) 1 unit PO DAILY [facility] Last Admin: 11/24/16 09:24 Dose: 1 unit Lactulose (Enulose) 20 gm PO DAILY PRN PRN Reason: Constipation Last Admin: 11/22/16 09:49 Dose: 20 gm Megestrol Acetate (Megace) 800 mg PO DAILY [facility] Last Admin: 11/24/16 09:23 Dose: 800 mg Metoprolol Tartrate (Lopressor) 25 mg PO Q12 [facility] Last Admin: 11/24/16 09:23 Dose: 25 mg Pantoprazole Sodium (Protonix Ec Tab) 20 mg PO DAILY [facility] Last Admin: 11/24/16 09:24 Dose: 20 mg Sennosides (Senokot Tab) 17.2 mg PO HS [facility] Last Admin: 11/23/16 21:20 Dose: Not Given Sitagliptin Phosphate (Januvia) 25 mg PO DAILY [facility] Last Admin: 11/24/16 09:23 Dose: 25 mg Tamsulosin HCl (Flomax) 0.4 mg PO HS [facility] Last Admin: 11/23/16 21:19 Dose: 0.4 mg Vitamin B Complex/Vit C/Folic Acid (Nephro-Sia) 1 tab PO DAILY [facility] Last Admin: 11/24/16 09:23 Dose: 1 tab Zolpidem Tartrate (Ambien) 5 mg PO HS PRN PRN Reason: Insomnia Stop: 11/26/16 22:00 - Labs Labs: 11/22/16 05:30 11/22/16 05:30 - Neck Exam Additional comments: JVD flat - Respiratory Exam Additional comments: Lungs clear - Cardiovascular Exam Cardiovascular Exam: REGULAR RHYTHM - Extremities Exam Additional comments: No edema Assessment and Plan - Assessment and Plan (Free Text) Assessment: ESRD HTN DM S/P lumbar laminectomy Plan: Stable on dialysis . Continue HD per schedule
--- NOTE | 2016-11-24 13:14 | PSY.TMCNF ---
Nursing - Vital Signs Vital Signs (Last 8 hours): Vital Signs 11/24/16 11/24/16 11/24/16 09:00 09:04 09:22 Temperature 97.5 F L 97.5 F L Pulse Rate 79 79 79 Respiratory 20 20 Rate Blood Pressure 141/65 141/65 141/65 O2 Sat by Pulse 99 Oximetry 11/24/16 09:23 Temperature Pulse Rate 79 Respiratory Rate Blood Pressure 141/65 O2 Sat by Pulse Oximetry Pain: 5 - Precautions: Precautions: Fall Prevention - Medications/Other Issues Comment: Pain - Consults Comment: Dr. Rodas, Dr. Stokes - Skin Incision Site: lower back Dressing Status: Clean, Dry, Intact Incision: Healing Well Incision Line Treatment: Aquacel dressing noted - Toileting Toileting: Minimal Assistance - Bladder Management Bladder Pattern: Normal Voiding Method: Toilet, Urinal Bladder Management: Minimal Assistance - Bowel Management Bowel Pattern: Normal Bowel Management: Minimal Assistance - Transfers Transfers: Minimal Assistance - ADL's ADL's: Minimal Assistance - Pain Management Comments: Tylenol 650mg po Q4hr prn for pain - Patient/Family Teaching Comments: Spinal precaution, Safety - Goals/Time Frame Comments: Per IPOC Physical Therapy - Bed Mobility Bed Mobility: Supervision - Transfers Wheelchair to Mat: Supervision Sit to Stand: Supervision - Ambulation Level of Assistance: Supervision Distance (ft.): 200 Assistive Devices: Rolling Walker - Stair Negotiation Stairs: Level of Assistance: Supervision, Verbal Cues, Contact Guard Number of Stairs: 12 Handrails: Bilateral Stairs: Assistive Devices: Left Handrail, Right Handrail - Standing Balance Static Stand: Supervision Dynamic Stand: Contact Guard Assist - Pain Pain (assessed during therapy session): 2 Management Techniques: Medication, Inactivity - Insight/Carryover Insight/Carryover: Good - Patient/Family Education Comment: -Spinal precautions as related to adls, functional transfers/mobility. -Uses/application of commode bedside vs over toilet. -OT goals. -w/c brake management for safe transfers and sit<->stand. -energy conservation/pacing for safety during adls, functional transfers/mobility - Assessment/Plan Assessment: Pt is agreeable to participate in sessions with encouragement. Pt participated in [employer] task and was mod I with task after setup. Pt presents with no weakness in UE compared to prior stay on unit. Pt's mood continues to be stable-positive and is supportive to pt and staff. Pt will continue to benefit from recreation therapy sessions to improve arousal level. - Goals Timeframe: 1 week Goals: -Pt/Pt's to verbalize/demonstrate spinal precautions Independently as needed for safety during daily living tasks. -LOWER BODY DRESSING: Mod I/ spinal precautions. -LOWER BODY BATHING:-Supervision/setup/spinal precautions. -GROOMING: stanidng at sink with Mod I. -TOILETING:MOD I with assistive device prn. -UPPER BODY DRESSING: Mod I. -UPPER BODY BATHING:seatedSupervision /setup. -CAREGIVER ED; caregiver to be I cueing pt as needed with daily living tasks/spinal precautions. -GATHER/TRANSPORT ITEMS: Mod I/Distant S with ambulatory device prn for adls/Iadls functions - Provider Therapist: arabella License Number: [id number] Occupational Therapy - Arousal/Attention/Orientation Patient Orientation: Person, Place, Time, Appropriate to Age, Appropriate to Situation - ADL/IADL Self Feeding: Set-up Help Grooming: Set-up Help Dressing-Upper Extremity: Supervision, Set-up Help Dressing-Lower Extremity: Supervision, Verbal Cues, Set-up Help, Contact Guard Comment: Homemaking skills: TBA - Sitting Balance Static Sitting: Independent with upper extremity support Dynamic Sitting: Requires supervision Comment: at edge of bed, spinal precautions - Transfers Wheelchair to Bed Transfers: Supervision, Verbal Cues, Set-up Help Toilet Transfers: Supervision, Verbal Cues, Set-up Help Comment: shower: TBA - Wheelchair Management Level of Assistance: Modified Independent Distance (ft.): 150 - Upper Extremity Status Right Upper Extremity Comment: AROM is WFLS Left Upper Extremity Comment: AROM is WFLS - Pain Pain (assessed during therapy session): 2 Alleviating Techniques: Medication, Inactivity - Insight/Carryover Insight/Carryover: Good - Patient/Family Education Comment: -Spinal precautions as related to adls, functional transfers/mobility. -Uses/application of commode bedside vs over toilet. -OT goals. -w/c brake management for safe transfers and sit<->stand. -energy conservation/pacing for safety during adls, functional transfers/mobility - Assessment/Plan Assessment: Pt is agreeable to participate in sessions with encouragement. Pt participated in [employer] task and was mod I with task after setup. Pt presents with no weakness in UE compared to prior stay on unit. Pt's mood continues to be stable-positive and is supportive to pt and staff. Pt will continue to benefit from recreation therapy sessions to improve arousal level. - Goals Timeframe: 1 week Goals: -Pt/Pt's to verbalize/demonstrate spinal precautions Independently as needed for safety during daily living tasks. -LOWER BODY DRESSING: Mod I/ spinal precautions. -LOWER BODY BATHING:-Supervision/setup/spinal precautions. -GROOMING: stanidng at sink with Mod I. -TOILETING:MOD I with assistive device prn. -UPPER BODY DRESSING: Mod I. -UPPER BODY BATHING:seatedSupervision /setup. -CAREGIVER ED; caregiver to be I cueing pt as needed with daily living tasks/spinal precautions. -GATHER/TRANSPORT ITEMS: Mod I/Distant S with ambulatory device prn for adls/Iadls functions - Provider Therapist: SALEEM Lim/Ady License Number: [id number] Speech Therapy - Plan Assessment: Pt is agreeable to participate in sessions with encouragement. Pt participated in [employer] task and was mod I with task after setup. Pt presents with no weakness in UE compared to prior stay on unit. Pt's mood continues to be stable-positive and is supportive to pt and staff. Pt will continue to benefit from recreation therapy sessions to improve arousal level. Recreational Therapy - Participation Participation: Monitors His/Her Own Leisure Time - Attendance Attendance: Daily - Activities Leisure Activities: Socializing - Socialization Level of Socialization: Initiates/interacts freely with care givers and peer - Diversional Time Diversional Time: television, socializing - Assessment Assessment/Plan: Pt is agreeable to participate in sessions with encouragement. Pt participated in dominoes task and was mod I with task after setup. Pt presents with no weakness in UE compared to prior stay on unit. Pt's mood continues to be stable-positive and is supportive to pt and staff. Pt will continue to benefit from recreation therapy sessions to improve arousal level. Problems Currently Limiting Participation: pain at times, decrease leisure awareness level Goals and Time Frame: Pt will be encouraged to participate in 1:1 and group recreation therapy sessions 3-5x week to improve leisure awareness level, arousal level, and to distract pt from pain. - Provider Therapist: Kasandra Esquivel, [employer] #[id number] Nutrition - Current Diet Current Diet/ Supplement/ Feedings: Renal dialysis 2 gram Na moderate consistent CHO glucerna shake one per day - Appetite Percent Meal Consumed: 50-74% - Comments Comments: Spinal precaution, Safety - Assessment/Goals/Time Frame Assessment/Goals/Time Frame: Pain - Provider Provider: Ivone Cleaning RD Rehabilitation Plan - Treatment Plan Treatment Plan: Physical Therapy, Occupational Therapy, Dietary, Patient/Family Education - Discharge Plan Estimated Date of Discharge: 11/28/16 Discharge to: Home
--- NOTE | 2016-11-24 13:35 | CP.PCM.PN ---
Subjective - Date & Time of Evaluation Date of Evaluation: 11/24/16 Time of Evaluation: 13:34 - Subjective Subjective: Patient seen in room with present no pain has made fantastic gains to this point will be able to d/c home wednesday continue current care Objective - Vital Signs/Intake and Output Vital Signs (last 24 hours): Temp Pulse Resp BP Pulse Ox 97.5 F L 79 20 141/65 99 11/24/16 09:04 11/24/16 09:23 11/24/16 09:04 11/24/16 09:23 11/24/16 09:04 - Medications Medications: Current Medications Acetaminophen (Tylenol 325mg Tab) 650 mg PO Q4 PRN PRN Reason: Pain 1-10 Last Admin: 11/24/16 12:16 Dose: 650 mg Calcitriol (Rocaltrol) 0.25 mcg PO MWF [facility] Last Admin: 11/23/16 09:21 Dose: 0.25 mcg Calcium Acetate (Phoslo) 667 mg PO TID [facility] Last Admin: 11/24/16 12:16 Dose: 667 mg Diltiazem HCl (Cardizem Cd) 120 mg PO DAILY [facility] Last Admin: 11/24/16 09:22 Dose: 120 mg Docusate Sodium (Colace) 100 mg PO BID [facility] Last Admin: 11/24/16 09:22 Dose: 100 mg Epoetin Justin (Procrit) 4,000 unit IV MWF [facility] Last Admin: 11/23/16 16:46 Dose: 4,000 unit Famotidine (Pepcid) 20 mg PO BID [facility] Last Admin: 11/24/16 09:24 Dose: 20 mg Home Med (Patient's Own Medication) 1 unit PO DAILY [facility] Last Admin: 11/24/16 09:24 Dose: 1 unit Lactulose (Enulose) 20 gm PO DAILY PRN PRN Reason: Constipation Last Admin: 11/22/16 09:49 Dose: 20 gm Megestrol Acetate (Megace) 800 mg PO DAILY [facility] Last Admin: 11/24/16 09:23 Dose: 800 mg Metoprolol Tartrate (Lopressor) 25 mg PO Q12 [facility] Last Admin: 11/24/16 09:23 Dose: 25 mg Pantoprazole Sodium (Protonix Ec Tab) 20 mg PO DAILY [facility] Last Admin: 11/24/16 09:24 Dose: 20 mg Sennosides (Senokot Tab) 17.2 mg PO HS [facility] Last Admin: 11/23/16 21:20 Dose: Not Given Sitagliptin Phosphate (Januvia) 25 mg PO DAILY [facility] Last Admin: 11/24/16 09:23 Dose: 25 mg Tamsulosin HCl (Flomax) 0.4 mg PO HS [facility] Last Admin: 11/23/16 21:19 Dose: 0.4 mg Vitamin B Complex/Vit C/Folic Acid (Nephro-Sia) 1 tab PO DAILY [facility] Last Admin: 11/24/16 09:23 Dose: 1 tab Zolpidem Tartrate (Ambien) 5 mg PO HS PRN PRN Reason: Insomnia Stop: 11/26/16 22:00 - Labs Labs: 11/22/16 05:30 11/22/16 05:30
[2016-11-25] MEDS: Megestrol Acetate 40 mg/ml Cup PO SCH (08:42)
[2016-11-25] MEDS: LINZESS 145 MCG PO SCH (08:44)
[2016-11-25] MEDS: Multivitamin Vitamin B Complex (Nephro-Vite) Tab PO SCH (08:44)
[2016-11-25] MEDS: diltiaZEM 120 mg/24 Hours CD Cap PO SCH (08:45)
[2016-11-25] MEDS: Pantoprazole 20 mg EC Tab PO SCH (08:45)
--- NOTE | 2016-11-25 17:14 | CP.PCM.PN ---
Subjective - Date & Time of Evaluation Date of Evaluation: 11/25/16 Time of Evaluation: 17:14 - Subjective Subjective: Patient seen in room just about to start HD no pain very comfortable and confident with his progress continue current care Objective - Vital Signs/Intake and Output Vital Signs (last 24 hours): Temp Pulse Resp BP Pulse Ox 98.1 F 88 20 150/72 98 11/25/16 08:29 11/25/16 08:45 11/25/16 08:29 11/25/16 08:45 11/25/16 08:29 - Medications Medications: Current Medications Acetaminophen (Tylenol 325mg Tab) 650 mg PO Q4 PRN PRN Reason: Pain 1-10 Last Admin: 11/24/16 12:16 Dose: 650 mg Calcitriol (Rocaltrol) 0.25 mcg PO MWF [facility] Last Admin: 11/25/16 08:45 Dose: 0.25 mcg Calcium Acetate (Phoslo) 667 mg PO TID [facility] Last Admin: 11/25/16 16:26 Dose: Not Given Diltiazem HCl (Cardizem Cd) 120 mg PO DAILY [facility] Last Admin: 11/25/16 08:45 Dose: 120 mg Docusate Sodium (Colace) 100 mg PO BID [facility] Last Admin: 11/25/16 16:26 Dose: Not Given Epoetin Justin (Procrit) 4,000 unit IV MWF [facility] Last Admin: 11/23/16 16:46 Dose: 4,000 unit Famotidine (Pepcid) 20 mg PO BID [facility] Last Admin: 11/25/16 16:26 Dose: Not Given Home Med (Patient's Own Medication) 1 unit PO DAILY [facility] Last Admin: 11/25/16 08:44 Dose: 1 unit Lactulose (Enulose) 20 gm PO DAILY PRN PRN Reason: Constipation Last Admin: 11/22/16 09:49 Dose: 20 gm Megestrol Acetate (Megace) 800 mg PO DAILY [facility] Last Admin: 11/25/16 08:42 Dose: 800 mg Metoprolol Tartrate (Lopressor) 25 mg PO Q12 [facility] Last Admin: 11/25/16 08:44 Dose: 25 mg Pantoprazole Sodium (Protonix Ec Tab) 20 mg PO DAILY [facility] Last Admin: 11/25/16 08:45 Dose: 20 mg Sennosides (Senokot Tab) 17.2 mg PO HS [facility] Last Admin: 11/24/16 21:28 Dose: Not Given Sitagliptin Phosphate (Januvia) 25 mg PO DAILY [facility] Last Admin: 11/25/16 08:44 Dose: 25 mg Tamsulosin HCl (Flomax) 0.4 mg PO HS [facility] Last Admin: 11/24/16 21:27 Dose: 0.4 mg Vitamin B Complex/Vit C/Folic Acid (Nephro-Sia) 1 tab PO DAILY [facility] Last Admin: 11/25/16 08:44 Dose: 1 tab Zolpidem Tartrate (Ambien) 5 mg PO HS PRN PRN Reason: Insomnia Stop: 11/26/16 22:00 Last Admin: 11/25/16 00:41 Dose: 5 mg - Labs Labs: 11/22/16 05:30 11/22/16 05:30
[2016-11-25] MEDS: Epoetin Alfa 4000 UNIT/ML Inj IV SCH (18:28)
--- NOTE | 2016-11-25 18:47 | CP.PCM.PN ---
Subjective - Date & Time of Evaluation Date of Evaluation: 11/25/16 Time of Evaluation: 06:20 - Subjective Subjective: Currently on HD Feels better Objective - Vital Signs/Intake and Output Vital Signs (last 24 hours): Temp Pulse Resp BP Pulse Ox 98.1 F 88 20 150/72 98 11/25/16 08:29 11/25/16 08:45 11/25/16 08:29 11/25/16 08:45 11/25/16 08:29 - Medications Medications: Current Medications Acetaminophen (Tylenol 325mg Tab) 650 mg PO Q4 PRN PRN Reason: Pain 1-10 Last Admin: 11/24/16 12:16 Dose: 650 mg Calcitriol (Rocaltrol) 0.25 mcg PO MWF [facility] Last Admin: 11/25/16 08:45 Dose: 0.25 mcg Calcium Acetate (Phoslo) 667 mg PO TID [facility] Last Admin: 11/25/16 16:26 Dose: Not Given Diltiazem HCl (Cardizem Cd) 120 mg PO DAILY [facility] Last Admin: 11/25/16 08:45 Dose: 120 mg Docusate Sodium (Colace) 100 mg PO BID [facility] Last Admin: 11/25/16 16:26 Dose: Not Given Epoetin Justin (Procrit) 4,000 unit IV MWF [facility] Last Admin: 11/25/16 18:28 Dose: 4,000 unit Famotidine (Pepcid) 20 mg PO BID [facility] Last Admin: 11/25/16 16:26 Dose: Not Given Home Med (Patient's Own Medication) 1 unit PO DAILY [facility] Last Admin: 11/25/16 08:44 Dose: 1 unit Lactulose (Enulose) 20 gm PO DAILY PRN PRN Reason: Constipation Last Admin: 11/22/16 09:49 Dose: 20 gm Megestrol Acetate (Megace) 800 mg PO DAILY [facility] Last Admin: 11/25/16 08:42 Dose: 800 mg Metoprolol Tartrate (Lopressor) 25 mg PO Q12 [facility] Last Admin: 11/25/16 08:44 Dose: 25 mg Pantoprazole Sodium (Protonix Ec Tab) 20 mg PO DAILY [facility] Last Admin: 11/25/16 08:45 Dose: 20 mg Sennosides (Senokot Tab) 17.2 mg PO HS [facility] Last Admin: 11/24/16 21:28 Dose: Not Given Sitagliptin Phosphate (Januvia) 25 mg PO DAILY [facility] Last Admin: 11/25/16 08:44 Dose: 25 mg Tamsulosin HCl (Flomax) 0.4 mg PO HS [facility] Last Admin: 11/24/16 21:27 Dose: 0.4 mg Vitamin B Complex/Vit C/Folic Acid (Nephro-Sia) 1 tab PO DAILY [facility] Last Admin: 11/25/16 08:44 Dose: 1 tab Zolpidem Tartrate (Ambien) 5 mg PO HS PRN PRN Reason: Insomnia Stop: 11/26/16 22:00 Last Admin: 11/25/16 00:41 Dose: 5 mg - Labs Labs: 11/22/16 05:30 11/22/16 05:30 - Respiratory Exam Additional comments: Lungs clear - Cardiovascular Exam Cardiovascular Exam: REGULAR RHYTHM - Extremities Exam Additional comments: No edema Assessment and Plan - Assessment and Plan (Free Text) Assessment: ESRD S/P lumbar laminectomy HTN,DM Plan: Stable on HD. Continue HD per schedule Labs with next dialysis
[2016-11-26] MEDS: Megestrol Acetate 40 mg/ml Cup PO SCH (08:42)
[2016-11-26] MEDS: Pantoprazole 20 mg EC Tab PO SCH (08:42)
[2016-11-26] MEDS: LINZESS 145 MCG PO SCH ×2 (08:42→08:46)
[2016-11-26] MEDS: diltiaZEM 120 mg/24 Hours CD Cap PO SCH (08:42)
[2016-11-26] MEDS: Multivitamin Vitamin B Complex (Nephro-Vite) Tab PO SCH (08:43)
--- NOTE | 2016-11-26 15:44 | CP.PCM.PN ---
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 Will plan for dialysis tomorrow. Continue with Nephrovite 1 tab/day. PRBC as needed for anemia. On AMARA as Epogen 4000 unit with HD, last Hb 9.3 Continue with phos binders Continue with calcitriol with dialysis. BP control with meds as ordered. Glycemic control, Dialysis consistent diet Further work up/management as per primary team Dose meds/antibiotics (if needed) for ESRD status. Avoid fleets enema/magnesium based laxatives. Thanks for allowing me to participate in care of your patient. Will follow patient with you. Please call if any Qs Dr Omer Leal Office: [phone] Subjective: Noted events overnight. Patients feels okay. Denies chest pain, palpitation, shortness of breath, leg swelling. No urinary complaints. says didn 't sleep well last night Physical Examination: General Appearance: Comfortable, in no acute respiratory distress, co- operative. Vitals reviewed and noted as below Lungs: Normal respiratory rate/effort. Breath sounds bilateral equal and clear Heart: Normal rate. s1s2 normal. No rub or gallop. Extremities: no edema. Neurological: Patient is alert, awake and oriented to person, place and time. No focal deficit. Strength bilateral appropriate and equal Skin: Warm and dry. Normal turgor. No rash. Palpitation: Normal elasticity for age Abdomen: Abdomen is soft. Bowel sounds +. There is no abdominal tenderness, no guarding/rigidity or organomegaly : kidney or bladder not palpable Access: AVF Labs/imaging reviewed. Past medical history, past surgical history, family history, social history, allergy reviewed Objective - Vital Signs/Intake and Output Vital Signs (last 24 hours): Temp Pulse Resp BP Pulse Ox 97.9 F 90 22 132/70 98 11/26/16 08:22 11/26/16 08:42 11/26/16 08:22 11/26/16 08:42 11/26/16 08:22 - Medications Medications: Current Medications Acetaminophen (Tylenol 325mg Tab) 650 mg PO Q4 PRN PRN Reason: Pain 1-10 Last Admin: 11/24/16 12:16 Dose: 650 mg Calcitriol (Rocaltrol) 0.25 mcg PO MWF [facility] Last Admin: 11/25/16 08:45 Dose: 0.25 mcg Calcium Acetate (Phoslo) 667 mg PO TID [facility] Last Admin: 11/26/16 12:28 Dose: 667 mg Diltiazem HCl (Cardizem Cd) 120 mg PO DAILY [facility] Last Admin: 11/26/16 08:42 Dose: 120 mg Docusate Sodium (Colace) 100 mg PO BID [facility] Last Admin: 11/26/16 08:46 Dose: Not Given Epoetin Justin (Procrit) 4,000 unit IV MWF [facility] Last Admin: 11/25/16 18:28 Dose: 4,000 unit Famotidine (Pepcid) 20 mg PO BID [facility] Last Admin: 11/26/16 08:42 Dose: 20 mg Home Med (Patient's Own Medication) 1 unit PO DAILY [facility] Last Admin: 11/26/16 08:46 Dose: Not Given Lactulose (Enulose) 20 gm PO DAILY PRN PRN Reason: Constipation Last Admin: 11/22/16 09:49 Dose: 20 gm Megestrol Acetate (Megace) 800 mg PO DAILY [facility] Last Admin: 11/26/16 08:42 Dose: 800 mg Metoprolol Tartrate (Lopressor) 25 mg PO Q12 [facility] Last Admin: 11/26/16 08:42 Dose: 25 mg Pantoprazole Sodium (Protonix Ec Tab) 20 mg PO DAILY [facility] Last Admin: 11/26/16 08:42 Dose: 20 mg Sennosides (Senokot Tab) 17.2 mg PO [facility] Last Admin: 11/25/16 22:20 Dose: Not Given Sitagliptin Phosphate (Januvia) 25 mg PO DAILY [facility] Last Admin: 11/26/16 08:41 Dose: 25 mg Tamsulosin HCl (Flomax) 0.4 mg PO [facility] Last Admin: 11/25/16 22:26 Dose: 0.4 mg Vitamin B Complex/Vit C/Folic Acid (Nephro-Sia) 1 tab PO DAILY [facility] Last Admin: 11/26/16 08:43 Dose: 1 tab Zolpidem Tartrate (Ambien) 5 mg PO HS PRN PRN Reason: Insomnia - Labs Labs: 11/22/16 05:30 11/22/16 05:30
[2016-11-26 21:01] VITALS: RESP 20
[2016-11-27] MEDS: diltiaZEM 120 mg/24 Hours CD Cap PO SCH (07:59)
[2016-11-27] MEDS: Multivitamin Vitamin B Complex (Nephro-Vite) Tab PO SCH (08:00)
[2016-11-27] MEDS: Megestrol Acetate 40 mg/ml Cup PO SCH (08:00)
[2016-11-27] MEDS: LINZESS 145 MCG PO SCH (08:01)
[2016-11-27] MEDS: Pantoprazole 20 mg EC Tab PO SCH (08:01)
--- NOTE | 2016-11-27 10:18 | CP.PCM.PN ---
Subjective - Date & Time of Evaluation Date of Evaluation: 11/27/16 Time of Evaluation: 10:00 - Subjective Subjective: Feels better Tolerating PT well Objective - Vital Signs/Intake and Output Vital Signs (last 24 hours): Temp Pulse Resp BP Pulse Ox 97.7 F 85 20 143/66 100 11/27/16 07:59 11/27/16 07:59 11/27/16 07:59 11/27/16 07:59 11/27/16 07:59 - Medications Medications: Current Medications Acetaminophen (Tylenol 325mg Tab) 650 mg PO Q4 PRN PRN Reason: Pain 1-10 Last Admin: 11/24/16 12:16 Dose: 650 mg Calcitriol (Rocaltrol) 0.25 mcg PO MWF [facility] Last Admin: 11/27/16 08:00 Dose: 0.25 mcg Calcium Acetate (Phoslo) 667 mg PO TID [facility] Last Admin: 11/27/16 08:00 Dose: 667 mg Diltiazem HCl (Cardizem Cd) 120 mg PO DAILY [facility] Last Admin: 11/27/16 07:59 Dose: 120 mg Docusate Sodium (Colace) 100 mg PO BID [facility] Last Admin: 11/27/16 07:59 Dose: Not Given Epoetin Justin (Procrit) 4,000 unit IV MWF [facility] Last Admin: 11/25/16 18:28 Dose: 4,000 unit Famotidine (Pepcid) 20 mg PO BID [facility] Last Admin: 11/27/16 08:00 Dose: 20 mg Home Med (Patient's Own Medication) 1 unit PO DAILY [facility] Last Admin: 11/27/16 08:01 Dose: Not Given Lactulose (Enulose) 20 gm PO DAILY PRN PRN Reason: Constipation Last Admin: 11/22/16 09:49 Dose: 20 gm Megestrol Acetate (Megace) 800 mg PO DAILY [facility] Last Admin: 11/27/16 08:00 Dose: 800 mg Metoprolol Tartrate (Lopressor) 25 mg PO Q12 [facility] Last Admin: 11/27/16 07:59 Dose: 25 mg Pantoprazole Sodium (Protonix Ec Tab) 20 mg PO DAILY [facility] Last Admin: 11/27/16 08:01 Dose: 20 mg Sennosides (Senokot Tab) 17.2 mg PO HS [facility] Last Admin: 11/26/16 21:48 Dose: 17.2 mg Sitagliptin Phosphate (Januvia) 25 mg PO DAILY [facility] Last Admin: 11/27/16 07:59 Dose: 25 mg Tamsulosin HCl (Flomax) 0.4 mg PO HS [facility] Last Admin: 11/26/16 21:19 Dose: 0.4 mg Vitamin B Complex/Vit C/Folic Acid (Nephro-Sia) 1 tab PO DAILY [facility] Last Admin: 11/27/16 08:00 Dose: 1 tab Zolpidem Tartrate (Ambien) 5 mg PO HS PRN PRN Reason: Insomnia Last Admin: 11/26/16 21:23 Dose: 5 mg - Labs Labs: 11/22/16 05:30 11/22/16 05:30 - Respiratory Exam Additional comments: Lungs clear - Cardiovascular Exam Cardiovascular Exam: REGULAR RHYTHM - Extremities Exam Additional comments: Extrem no edema Assessment and Plan - Assessment and Plan (Free Text) Assessment: ESRD HTN S/P lunbar laminectomy Plan: Stable on dialysis. Continue HD per schedule
[2016-11-27] MEDS: Epoetin Alfa 4000 UNIT/ML Inj IV SCH (22:32)
[2016-11-28] MEDS: Multivitamin Vitamin B Complex (Nephro-Vite) Tab PO SCH (08:23)
[2016-11-28] MEDS: LINZESS 145 MCG PO SCH (08:23)
[2016-11-28] MEDS: Megestrol Acetate 40 mg/ml Cup PO SCH (08:23)
[2016-11-28] MEDS: diltiaZEM 120 mg/24 Hours CD Cap PO SCH (08:24)
[2016-11-28] MEDS: Pantoprazole 20 mg EC Tab PO SCH (08:25)
[2016-11-28 08:26] VITALS: BP 128/66; PULSE 84
[2016-11-28 08:54] VITALS: TEMP 97.7; O2SAT 100
--- NOTE | 2016-11-28 12:37 | CP.PCM.PN ---
Subjective - Date & Time of Evaluation Date of Evaluation: 11/24/16 Time of Evaluation: 09:30 - Subjective Subjective: Patient remains stable dOING WELL WITH pt Objective - Vital Signs/Intake and Output Vital Signs (last 24 hours): Temp Pulse Resp BP Pulse Ox 97.7 F 84 20 128/66 100 11/28/16 08:54 11/28/16 08:54 11/28/16 08:54 11/28/16 08:54 11/28/16 08:54 - Medications Medications: Current Medications Acetaminophen (Tylenol 325mg Tab) 650 mg PO Q4 PRN PRN Reason: Pain 1-10 Last Admin: 11/27/16 23:07 Dose: 650 mg Calcitriol (Rocaltrol) 0.25 mcg PO MWF [facility] Last Admin: 11/27/16 08:00 Dose: 0.25 mcg Calcium Acetate (Phoslo) 667 mg PO TID [facility] Last Admin: 11/28/16 08:23 Dose: 667 mg Diltiazem HCl (Cardizem Cd) 120 mg PO DAILY [facility] Last Admin: 11/28/16 08:24 Dose: 120 mg Docusate Sodium (Colace) 100 mg PO BID [facility] Last Admin: 11/28/16 08:25 Dose: Not Given Epoetin Justin (Procrit) 4,000 unit IV MWF [facility] Last Admin: 11/27/16 22:32 Dose: 4,000 unit Famotidine (Pepcid) 20 mg PO BID [facility] Last Admin: 11/28/16 08:23 Dose: 20 mg Home Med (Patient's Own Medication) 1 unit PO DAILY [facility] Last Admin: 11/28/16 08:23 Dose: 1 unit Lactulose (Enulose) 20 gm PO DAILY PRN PRN Reason: Constipation Last Admin: 11/22/16 09:49 Dose: 20 gm Megestrol Acetate (Megace) 800 mg PO DAILY [facility] Last Admin: 11/28/16 08:23 Dose: 800 mg Metoprolol Tartrate (Lopressor) 25 mg PO Q12 [facility] Last Admin: 11/28/16 08:24 Dose: 25 mg Pantoprazole Sodium (Protonix Ec Tab) 20 mg PO DAILY [facility] Last Admin: 11/28/16 08:25 Dose: 20 mg Sennosides (Senokot Tab) 17.2 mg PO HS [facility] Last Admin: 11/28/16 00:10 Dose: Not Given Sitagliptin Phosphate (Januvia) 25 mg PO DAILY [facility] Last Admin: 11/28/16 08:23 Dose: 25 mg Tamsulosin HCl (Flomax) 0.4 mg PO HS [facility] Last Admin: 11/28/16 00:07 Dose: 0.4 mg Vitamin B Complex/Vit C/Folic Acid (Nephro-Sia) 1 tab PO DAILY [facility] Last Admin: 11/28/16 08:23 Dose: 1 tab Zolpidem Tartrate (Ambien) 5 mg PO HS PRN PRN Reason: Insomnia Last Admin: 11/28/16 00:37 Dose: 5 mg - Labs Labs: 11/22/16 05:30 11/22/16 05:30 Assessment and Plan (1) S/P lumbar laminectomy Status: Acute (2) Lumbar back pain with radiculopathy affecting left lower extremity Status: Acute (3) CKD (chronic kidney disease) stage 5, GFR less than 15 ml/min Status: Chronic (4) Diabetes mellitus type 2 in nonobese Status: Chronic (5) Hyperlipidemia Status: Chronic (6) Hypertension Status: Chronic (7) Paroxysmal atrial fibrillation Status: Chronic
--- NOTE | 2016-11-28 12:38 | CP.PCM.PN ---
Subjective - Date & Time of Evaluation Date of Evaluation: 11/25/16 Time of Evaluation: 10:30 - Subjective Subjective: Patient remains well Has no chest pain or SOB Doing well with PT Objective - Vital Signs/Intake and Output Vital Signs (last 24 hours): Temp Pulse Resp BP Pulse Ox 97.7 F 84 20 128/66 100 11/28/16 08:54 11/28/16 08:54 11/28/16 08:54 11/28/16 08:54 11/28/16 08:54 - Medications Medications: Current Medications Acetaminophen (Tylenol 325mg Tab) 650 mg PO Q4 PRN PRN Reason: Pain 1-10 Last Admin: 11/27/16 23:07 Dose: 650 mg Calcitriol (Rocaltrol) 0.25 mcg PO MWF [facility] Last Admin: 11/27/16 08:00 Dose: 0.25 mcg Calcium Acetate (Phoslo) 667 mg PO TID [facility] Last Admin: 11/28/16 08:23 Dose: 667 mg Diltiazem HCl (Cardizem Cd) 120 mg PO DAILY [facility] Last Admin: 11/28/16 08:24 Dose: 120 mg Docusate Sodium (Colace) 100 mg PO BID [facility] Last Admin: 11/28/16 08:25 Dose: Not Given Epoetin Justin (Procrit) 4,000 unit IV MWF [facility] Last Admin: 11/27/16 22:32 Dose: 4,000 unit Famotidine (Pepcid) 20 mg PO BID [facility] Last Admin: 11/28/16 08:23 Dose: 20 mg Home Med (Patient's Own Medication) 1 unit PO DAILY [facility] Last Admin: 11/28/16 08:23 Dose: 1 unit Lactulose (Enulose) 20 gm PO DAILY PRN PRN Reason: Constipation Last Admin: 11/22/16 09:49 Dose: 20 gm Megestrol Acetate (Megace) 800 mg PO DAILY [facility] Last Admin: 11/28/16 08:23 Dose: 800 mg Metoprolol Tartrate (Lopressor) 25 mg PO Q12 [facility] Last Admin: 11/28/16 08:24 Dose: 25 mg Pantoprazole Sodium (Protonix Ec Tab) 20 mg PO DAILY [facility] Last Admin: 11/28/16 08:25 Dose: 20 mg Sennosides (Senokot Tab) 17.2 mg PO HS [facility] Last Admin: 11/28/16 00:10 Dose: Not Given Sitagliptin Phosphate (Januvia) 25 mg PO DAILY [facility] Last Admin: 11/28/16 08:23 Dose: 25 mg Tamsulosin HCl (Flomax) 0.4 mg PO HS [facility] Last Admin: 11/28/16 00:07 Dose: 0.4 mg Vitamin B Complex/Vit C/Folic Acid (Nephro-Sia) 1 tab PO DAILY [facility] Last Admin: 11/28/16 08:23 Dose: 1 tab Zolpidem Tartrate (Ambien) 5 mg PO HS PRN PRN Reason: Insomnia Last Admin: 11/28/16 00:37 Dose: 5 mg - Labs Labs: 11/22/16 05:30 11/22/16 05:30 Assessment and Plan (1) S/P lumbar laminectomy Status: Acute (2) Lumbar back pain with radiculopathy affecting left lower extremity Status: Acute (3) CKD (chronic kidney disease) stage 5, GFR less than 15 ml/min Status: Chronic (4) Diabetes mellitus type 2 in nonobese Status: Chronic (5) Hyperlipidemia Status: Chronic (6) Hypertension Status: Chronic (7) Paroxysmal atrial fibrillation Status: Chronic
--- NOTE | 2016-11-28 12:39 | CP.PCM.PN ---
Subjective - Date & Time of Evaluation Date of Evaluation: 11/26/16 Time of Evaluation: 10:00 - Subjective Subjective: Patient is doing well Has no chest pain or SOB Objective - Vital Signs/Intake and Output Vital Signs (last 24 hours): Temp Pulse Resp BP Pulse Ox 97.7 F 84 20 128/66 100 11/28/16 08:54 11/28/16 08:54 11/28/16 08:54 11/28/16 08:54 11/28/16 08:54 - Medications Medications: Current Medications Acetaminophen (Tylenol 325mg Tab) 650 mg PO Q4 PRN PRN Reason: Pain 1-10 Last Admin: 11/27/16 23:07 Dose: 650 mg Calcitriol (Rocaltrol) 0.25 mcg PO MWF [facility] Last Admin: 11/27/16 08:00 Dose: 0.25 mcg Calcium Acetate (Phoslo) 667 mg PO TID [facility] Last Admin: 11/28/16 08:23 Dose: 667 mg Diltiazem HCl (Cardizem Cd) 120 mg PO DAILY [facility] Last Admin: 11/28/16 08:24 Dose: 120 mg Docusate Sodium (Colace) 100 mg PO BID [facility] Last Admin: 11/28/16 08:25 Dose: Not Given Epoetin Justin (Procrit) 4,000 unit IV MWF [facility] Last Admin: 11/27/16 22:32 Dose: 4,000 unit Famotidine (Pepcid) 20 mg PO BID [facility] Last Admin: 11/28/16 08:23 Dose: 20 mg Home Med (Patient's Own Medication) 1 unit PO DAILY [facility] Last Admin: 11/28/16 08:23 Dose: 1 unit Lactulose (Enulose) 20 gm PO DAILY PRN PRN Reason: Constipation Last Admin: 11/22/16 09:49 Dose: 20 gm Megestrol Acetate (Megace) 800 mg PO DAILY [facility] Last Admin: 11/28/16 08:23 Dose: 800 mg Metoprolol Tartrate (Lopressor) 25 mg PO Q12 [facility] Last Admin: 11/28/16 08:24 Dose: 25 mg Pantoprazole Sodium (Protonix Ec Tab) 20 mg PO DAILY [facility] Last Admin: 11/28/16 08:25 Dose: 20 mg Sennosides (Senokot Tab) 17.2 mg PO HS [facility] Last Admin: 11/28/16 00:10 Dose: Not Given Sitagliptin Phosphate (Januvia) 25 mg PO DAILY [facility] Last Admin: 11/28/16 08:23 Dose: 25 mg Tamsulosin HCl (Flomax) 0.4 mg PO HS [facility] Last Admin: 11/28/16 00:07 Dose: 0.4 mg Vitamin B Complex/Vit C/Folic Acid (Nephro-Sia) 1 tab PO DAILY [facility] Last Admin: 11/28/16 08:23 Dose: 1 tab Zolpidem Tartrate (Ambien) 5 mg PO HS PRN PRN Reason: Insomnia Last Admin: 11/28/16 00:37 Dose: 5 mg - Labs Labs: 11/22/16 05:30 11/22/16 05:30 Assessment and Plan (1) S/P lumbar laminectomy Status: Acute (2) Lumbar back pain with radiculopathy affecting left lower extremity Status: Acute (3) CKD (chronic kidney disease) stage 5, GFR less than 15 ml/min Status: Chronic (4) Diabetes mellitus type 2 in nonobese Status: Chronic (5) Hyperlipidemia Status: Chronic (6) Hypertension Status: Chronic (7) Paroxysmal atrial fibrillation Status: Chronic
--- NOTE | 2016-11-28 12:39 | CP.PCM.PN ---
Subjective - Date & Time of Evaluation Date of Evaluation: 11/27/16 Time of Evaluation: 10:00 - Subjective Subjective: patient has mild constipation responds well to current meds. Objective - Vital Signs/Intake and Output Vital Signs (last 24 hours): Temp Pulse Resp BP Pulse Ox 97.7 F 84 20 128/66 100 11/28/16 08:54 11/28/16 08:54 11/28/16 08:54 11/28/16 08:54 11/28/16 08:54 - Medications Medications: Current Medications Acetaminophen (Tylenol 325mg Tab) 650 mg PO Q4 PRN PRN Reason: Pain 1-10 Last Admin: 11/27/16 23:07 Dose: 650 mg Calcitriol (Rocaltrol) 0.25 mcg PO MWF [facility] Last Admin: 11/27/16 08:00 Dose: 0.25 mcg Calcium Acetate (Phoslo) 667 mg PO TID [facility] Last Admin: 11/28/16 08:23 Dose: 667 mg Diltiazem HCl (Cardizem Cd) 120 mg PO DAILY [facility] Last Admin: 11/28/16 08:24 Dose: 120 mg Docusate Sodium (Colace) 100 mg PO BID [facility] Last Admin: 11/28/16 08:25 Dose: Not Given Epoetin Justin (Procrit) 4,000 unit IV MWF [facility] Last Admin: 11/27/16 22:32 Dose: 4,000 unit Famotidine (Pepcid) 20 mg PO BID [facility] Last Admin: 11/28/16 08:23 Dose: 20 mg Home Med (Patient's Own Medication) 1 unit PO DAILY [facility] Last Admin: 11/28/16 08:23 Dose: 1 unit Lactulose (Enulose) 20 gm PO DAILY PRN PRN Reason: Constipation Last Admin: 11/22/16 09:49 Dose: 20 gm Megestrol Acetate (Megace) 800 mg PO DAILY [facility] Last Admin: 11/28/16 08:23 Dose: 800 mg Metoprolol Tartrate (Lopressor) 25 mg PO Q12 [facility] Last Admin: 11/28/16 08:24 Dose: 25 mg Pantoprazole Sodium (Protonix Ec Tab) 20 mg PO DAILY [facility] Last Admin: 11/28/16 08:25 Dose: 20 mg Sennosides (Senokot Tab) 17.2 mg PO HS [facility] Last Admin: 11/28/16 00:10 Dose: Not Given Sitagliptin Phosphate (Januvia) 25 mg PO DAILY [facility] Last Admin: 11/28/16 08:23 Dose: 25 mg Tamsulosin HCl (Flomax) 0.4 mg PO HS [facility] Last Admin: 11/28/16 00:07 Dose: 0.4 mg Vitamin B Complex/Vit C/Folic Acid (Nephro-Sia) 1 tab PO DAILY [facility] Last Admin: 11/28/16 08:23 Dose: 1 tab Zolpidem Tartrate (Ambien) 5 mg PO HS PRN PRN Reason: Insomnia Last Admin: 11/28/16 00:37 Dose: 5 mg - Labs Labs: 11/22/16 05:30 11/22/16 05:30 Assessment and Plan (1) S/P lumbar laminectomy Status: Acute (2) Lumbar back pain with radiculopathy affecting left lower extremity Status: Acute (3) CKD (chronic kidney disease) stage 5, GFR less than 15 ml/min Status: Chronic (4) Diabetes mellitus type 2 in nonobese Status: Chronic (5) Hyperlipidemia Status: Chronic (6) Hypertension Status: Chronic (7) Paroxysmal atrial fibrillation Status: Chronic
--- NOTE | 2016-11-28 12:40 | CP.PCM.DIS ---
Provider - Provider Date of Admission: 11/18/16 21:00 Attending physician: Jorge Luis Webber MD Primary care physician: Jorge Luis Webber MD Diagnosis - Discharge Diagnosis (1) S/P lumbar laminectomy Status: Acute (2) Lumbar back pain with radiculopathy affecting left lower extremity Status: Acute (3) CKD (chronic kidney disease) stage 5, GFR less than 15 ml/min Status: Chronic (4) Diabetes mellitus type 2 in nonobese Status: Chronic (5) Hyperlipidemia Status: Chronic (6) Hypertension Status: Chronic (7) Paroxysmal atrial fibrillation Status: Chronic Hospital Course - Lab Results Lab Results: Most Recent Lab Values WBC 4.1 K/uL (4.8-10.8) L 11/22/16 05:30 RBC 3.18 Mil/uL (4.40-5.90) L 11/22/16 05:30 Hgb 9.3 g/dL (12.0-18.0) L 11/22/16 05:30 Hct 29.2 % (35.0-51.0) L 11/22/16 05:30 MCV 91.8 fl (80.0-94.0) 11/22/16 05:30 MCH 29.3 pg (27.0-31.0) 11/22/16 05:30 MCHC 31.9 g/dL (33.0-37.0) L 11/22/16 05:30 RDW 15.9 % (11.5-14.5) H 11/22/16 05:30 Plt Count 163 K/uL (130-400) 11/22/16 05:30 Sodium 136 mmol/l (132-148) 11/22/16 05:30 Potassium 3.7 MMOL/L (3.6-5.0) 11/22/16 05:30 Chloride 95 mmol/L (98-107) L 11/22/16 05:30 Carbon Dioxide 32 mmol/L (22-30) H 11/22/16 05:30 Anion Gap 13 (10-20) 11/22/16 05:30 BUN 30 mg/dl (9-20) H 11/22/16 05:30 Creatinine 5.9 mg/dL (0.8-1.5) H 11/22/16 05:30 Est GFR ( Amer) 11 11/22/16 05:30 Est GFR (Non-Af Amer) 9 11/22/16 05:30 POC Glucose (mg/dL) 132 mg/dL (65-110) H 11/27/16 10:58 Random Glucose 114 mg/dL (75-110) H 11/22/16 05:30 Calcium 8.5 mg/dL (8.4-10.2) 11/22/16 05:30 Total Bilirubin 0.4 mg/dl (0.2-1.3) 11/22/16 05:30 AST 27 U/L (17-59) 11/22/16 05:30 ALT 12 U/L (21-72) L D 11/22/16 05:30 Alkaline Phosphatase 57 U/L (38-126) 11/22/16 05:30 Total Protein 6.7 G/DL (6.3-8.2) 11/22/16 05:30 Albumin 3.6 g/dL (3.5-5.0) 11/22/16 05:30 Globulin 3.1 gm/dL (2.2-3.9) 11/22/16 05:30 Albumin/Globulin Ratio 1.1 (1.0-2.1) 11/22/16 05:30 - Hospital Course Hospital Course: This is a 81 y/o male admitted for further PT. Had a lumbar laminectomy. Discharge Exam - Head Exam Head Exam: NORMAL INSPECTION Discharge Plan - Follow Up Plan Condition: GOOD Disposition: HOME/ ROUTINE Instructions: Metoprolol (By mouth), Diltiazem (By mouth), Famotidine (By mouth ), Laxative, Stimulant (By mouth), Calcitriol (By mouth), Laxative, Stool Softeners (By mouth), Megestrol Acetate (By mouth), Tamsulosin (By mouth), Calcium Acetate (By mouth), Pantoprazole (By mouth), Vitamin B/Vitamin C (By mouth), Sitagliptin (By mouth), Linaclotide (By mouth), Atrial Fibrillation (DC) , Dilated Cardiomyopathy (DC), Diabetes Mellitus Type 2 in Adults (DC), Iron Deficiency Anemia (GEN), Lumbar Radiculopathy (GEN), End Stage Kidney Disease ( DC), End Stage Kidney Disease (GEN), Hyperlipidemia (DC) Referrals: Jorge Luis Webber MD [Primary Care Provider] -
== END 2016-11-28 16:10 | disposition home or self-care (01) | DRG 949 ==
PROVIDERS: ADMIT Family Medicine; ATTEND Family Medicine
PROC: F07Z9FZ Gait Training/Functional Ambulation Treatment using Assistive, Adaptive, Supportive or Protective Equipment (ICD-10-PCS; principal; 2016-11-18)
PROC: F08Z4FZ Home Management Treatment using Assistive, Adaptive, Supportive or Protective Equipment (ICD-10-PCS; 2016-11-19)
PROC: F07L6FZ Therapeutic Exercise Treatment of Musculoskeletal System - Lower Back / Lower Extremity using Assistive, Adaptive, Supportive or Protective Equipment (ICD-10-PCS; 2016-11-19)
PROC: 5A1D60Z (ICD-10-PCS; 2016-11-24)
DX: Z48.811 Encounter for surgical aftercare following surgery on the nervous system (principal); N18.6 End stage renal disease; I12.0 Hypertensive chronic kidney disease with stage 5 chronic kidney disease or end stage renal disease; I42.9 Cardiomyopathy, unspecified; Z98.890 Other specified postprocedural states; M54.16 Radiculopathy, lumbar region; E11.22 Type 2 diabetes mellitus with diabetic chronic kidney disease; N25.81 Secondary hyperparathyroidism of renal origin; I48.0 Paroxysmal atrial fibrillation; G62.9 Polyneuropathy, unspecified; E78.5 Hyperlipidemia, unspecified; E83.39 Other disorders of phosphorus metabolism; D64.9 Anemia, unspecified; K59.00 Constipation, unspecified; Z99.2 Dependence on renal dialysis; Z87.891 Personal history of nicotine dependence